=== PATIENT | male | born 1950 | race Caucasian/White ===

== ENCOUNTER 2020-03-06 07:29 | Inpatient (IN) | payer MEDICARE ==
[~2020-03-06] VITALS: Ht 182.8 cm; Wt 98.2 kg
[2020-03-06] MEDS ORDERED: NS IV 1000 ML 1,000 ML IV SCH (08:00)
--- NOTE | 2020-03-06 08:21 | ED Neurological Problem ---
General Chief Complaint: Neuro-Stroke Like Symptoms Stated Complaint: STROKE LIKE SYMPTOMS, VERTIGO Nursing Triage Note: TO ED PER EMS A TRANSFER FROM [facility] TO HAVE CT ANGIO OF HEAD AND NECK. PATIENT WOKE UP APX 4AM WITH C/O BEING DIZZY,NUMBNESS TO L SIDE OF FACE AND BLURRY VISION IN L EYE. LAST KNOW WELL TIME WAS 1030 -1100 PM LAST NIGHT. Nursing Sepsis Screen: No Definite Risk Source: patient, old records (From [facility]) Exam Limitations: no limitations History of Present Illness Date Seen by Provider: Mar 06, 2020 Time Seen by Provider: 07:33 Initial Comments This is 69-year-old gentleman presents to the emergency room with disequilibrium, diplopia, nausea and vomiting, and left facial numbness. His last known well time was approximately 22:30 when he went to bed. He woke with the symptoms at 04:00. He presented to [facility] via EMS. Initial work-up was relatively unremarkable. He was given Zofran, Compazine, IV fluids, meclizine, and Ativan with significant improvement in his symptoms. He did not qualify for thrombolytic therapy due to last known well time being 22:30. NIH stroke score at [facility] was 0. NIH stroke score for us is 1 due to discoordination of the left upper extremity. He either has a nystagmus or a left-sided deviation of the eyes which he is partially overcoming. As a result he is having diplopia and feels more comfortable shutting or covering 1 eye. He denies any visual field deficits. CT of the head without contrast at [facility] was negative. [facility] did not have the capability to perform CT angiogram and therefore requested the transfer. Patient has a pacemaker. He takes Cardizem and metoprolol but denies any history of atrial fibrillation. He does not take any anticoagulants. Allergies and Home Medications Allergies Coded Allergies: Penicillins (Verified Allergy, Unknown, 03/06/20) Patient Home Medication List Home Medication List Reviewed: Yes Review of Systems Review of Systems Constitutional: no symptoms reported Eyes: See HPI Ears, Nose, Mouth, Throat: no symptoms reported Respiratory: no symptoms reported Cardiovascular: other (Hypertension) Gastrointestinal: see HPI Genitourinary: no symptoms reported Musculoskeletal: no symptoms reported Skin: no symptoms reported Psychiatric/Neurological: See HPI Endocrine: No Symptoms Reported Hematologic/Lymphatic: No Symptoms Reported Past Dojvnqe-Cyvddc-Pihzci Hx Past Med/Social Hx: Reviewed Nursing Past Med/Soc Hx Patient Social History Recent Foreign Travel: No Contact w/Someone Who Travel: No Recent Infectious Disease Expo: No Past Medical History Surgeries: Yes Pacemaker Respiratory: No Cardiac: Yes (Pacemaker) Hypertension Neurological: No Genitourinary: No Gastrointestinal: No Musculoskeletal: No Endocrine: No HEENT: No Cancer: No Did You Recieve Any Treatments: No Psychosocial: No Integumentary: No Physical Exam Vital Signs Vital Signs - First Documented 03/06/20 07:29 Temp 35.6 Pulse 63 Resp 18 B/P (MAP) 188/90 (122) Pulse Ox 95 O2 Delivery Room Air Capillary Refill : Less Than 3 Seconds Height, Weight, BMI Height: '" Weight: lbs. oz. kg; 26.00 BMI Method: General Appearance: WD/WN, mild distress HEENT: normal ENT inspection, other (Dry mucous membranes) Neck: normal inspection Respiratory: lungs clear, normal breath sounds, no respiratory distress, no accessory muscle use Cardiovascular: regular rate, rhythm, no edema, no murmur Gastrointestinal: normal bowel sounds, non tender, soft Extremities: normal inspection, no pedal edema Neurologic/Psychiatric: alert, normal mood/affect, oriented x 3, other (Either a left sided gaze deviation which he is able to overcome with effort or nystagmus to the left. Movement is a slow beat to the left.) Crainal Nerves: normal hearing, normal speech, PERRL Coordination/Gait: ABN nose to finger (L) Skin: normal color, warm/dry Stroke NIH Stroke Scale Assessment Level of Consciousness: 0=Alert (0), Level of Consciousness-Questions: 0=Answers both month/age (0), LOC Commands: 0=Performs both tasks (0), Visual Boggs: 0=No visual loss (0), Facial Movement (Facial Paresis): 0=Normal symmetrical mnt (0), Motor Function-Arms Right: 0=No drift (0), Motor Function-Arms Left: 0=No drift (0), Motor Function-Legs Left: 0=No drift (0), Limb Ataxia: 1=Present in one limb (1), Best Language: 0=No aphasia (0), Dysarthria: 0=Normal (0), Total: 1 Progress/Results/Core Measures Results/Orders My Orders Orders - CLEVELAND ALY MD Ct Angio Head/Neck (03/06/20 07:52) Ns Iv 1000 Ml (Sodium Chloride 0.9%) (03/06/20 08:00) Ct Head Wo-R/O Stroke (03/06/20 08:21) Chest 1 View, Ap/Pa Only (03/06/20 09:17) Vital Signs Stroke Patient Q15M (03/06/20 09:17) Intake & Output 06,14,22 (03/06/20 09:17) Monitor-Rhythm Ecg Trace Only (03/06/20 09:17) Dysphagia Screening Tool (03/06/20 09:17) Aspirin Tablet (Aspirin Tablet) (03/06/20 11:00) Pt Evaluate/Treat Request (03/06/20 10:48) Vital Signs/I&O 03/06/20 03/06/20 07:29 09:28 Temp 35.6 Pulse 63 60 Resp 18 18 B/P (MAP) 188/90 (122) 198/95 (129) Pulse Ox 95 97 O2 Delivery Room Air Room Air Blood Pressure Mean: 122 Progress Progress Note #1: Time: 08:30 Progress Note Patient was taken back to CT. There is a density in the left parietal region. We will have this read to rule out hemorrhage before proceeding to the CT angiogram. Progress Note #2: Progress Note CT was unremarkable. CT angiogram was then obtained which was also unremarkable. Case was discussed with Dr. Lucio at 09:31. She agrees that the presentation was suspicious for acute stroke. She recommended admission to observe him and obtain 2D echocardiogram. MRI should be obtained in the near future as well. She recommended systolic blood pressure be allowed to remain high as long as it stays under 220 during the acute phase of stroke. Patient expressed a desire for transfer to [place] where his usual physicians are located. Unfortunately, [place] is on full admission diversion for transfers at this time. Patient received aspirin in the emergency room. I ordered a physical therapy consult and echocardiogram. Diagnostic Imaging Diagonstic Imaging: CT Plain Films/CT/US/NM/MRI: head Comments CT head viewed by me and report reviewed. See report below: NAME: ABRAHANIVONNE [facility] REC#: [id number] PT STATUS: REG ER : 1950 PHYSICIAN: CLEVELAND ALY MD ADMIT DATE: 03/06/20/ER Draft Date of Exam:03/06/20 CT HEAD WO-R/O STROKE PROCEDURE: CT head wo r/o stroke. TECHNIQUE: Multiple contiguous axial images were obtained through the brain without the use of intravenous contrast. Auto Exposure Controls were utilized during the CT exam to meet ALARA standards for radiation dose reduction. INDICATION: Neurological deficit, stroke like symptoms CORRELATION: None FINDINGS: There is no midline shift or mass effect. The ventricles and sulci are unremarkable. No evidence for acute intracranial hemorrhage, abnormal extra-axial fluid collections or cerebral edema is present. The basilar cisterns are unremarkable. The bony calvarium is intact. There is rather significant mucosal thickening and air-fluid levels throughout the paranasal sinuses. This includes the near complete opacification of the left frontal sinus and a large number of the ethmoid air cells. There is fluid in the sphenoid sinuses as well as moderate mucosal thickening of bilateral maxillary sinuses. IMPRESSION: Negative appearing noncontrast CT of the head. Extensive pansinusitis. Dictated on workstation # [id number] Dict: 03/06/2032 Trans: 03/06/20 0834 DO [id number] Interpreted by: YAZAN DALY DO Reviewed: Reviewed by Me Diagonstic Imaging: CT Plain Films/CT/US/NM/MRI: other Comments CT angiogram report reviewed. See report below: NAME: IVONNE GAUTHIER [facility] REC#: [id number] PT STATUS: REG ER : 1950 PHYSICIAN: CLEVELAND ALY MD ADMIT DATE: 03/06/20/ER Signed Date of Exam:03/06/20 CT ANGIO HEAD/NECK PROCEDURE: CT angiography of the head and CT angiography of the neck with and without contrast. TECHNIQUE: Contiguous noncontrast images were obtained from the skull base through the vertex. After intravenous contrast administration, helical CT angiography of the neck was performed. Source data was reformatted into 3D MIP projections. Delayed post contrast acquisition was also obtained. Auto Exposure Controls were utilized during the CT exam to meet ALARA standards for radiation dose reduction. INDICATION: Dizziness and facial numbness. Evaluate for stroke. Comparison made with CT of the head from earlier in the same day. FINDINGS: There is no significant stenosis at the origins of the great vessels arising from the aortic arch. The common carotid arteries demonstrate no significant stenosis. There is no stenosis at the carotid bifurcations by NASCET criteria. There is some plaquing within the proximal right internal carotid artery. There are no findings of an ICA dissection. The vertebral arteries within the neck demonstrate no significant stenosis or dissection. Intracranially, there is appropriate flow within the intracranial segments of both of the internal carotid arteries with only mild atherosclerotic disease within the carotid siphon. Carotid terminus is unremarkable bilaterally. There is flow within the M1 segment of both of the middle cerebral arteries with no findings of an M2 branch occlusion. The anterior cerebral arteries appear patent. Within the posterior circulation both of the vertebral arteries are patent. There are patent posterior inferior cerebellar arteries. The basilar demonstrates no significant stenosis. The superior cerebellar arteries appear patent. The posterior cerebral arteries appear patent. There are no findings of intracranial aneurysm formation or evidence of a vascular malformation. There is reidentification of paranasal sinus disease as described on CT of the head. The soft tissues of the neck demonstrate no acute process. The lung apices appear clear. There are degenerative features within the cervical spine without acute or suspicious osseous abnormality. IMPRESSION: 1. No CT angiographic evidence of intracranial large vessel occlusion. 2. No findings of intracranial aneurysm formation. 3. The dural venous sinuses appear patent. 4. No pathologic intracranial enhancement. 5. No significant stenosis or dissection within the neck. 6. Paranasal sinus disease. 7. Cervical degenerative disc disease and facet arthropathy. Postcontrast imaging demonstrate no pathologic intracranial enhancement. The dural venous sinuses appear patent. Dictated by: Dictated on workstation # [id number] Dict: 03/06/20905 Trans: 03/06/201005 [id number] Interpreted by: CHITRA PEREZ MD Electronically signed by: CHITRA PEREZ MD 03/06/201005 Reviewed: Reviewed by Me Diagonstic Imaging: Xray Plain Films/CT/US/NM/MRI: chest Comments NAME: IVONNE GAUTHIER [facility] REC#: [id number] PT STATUS: REG ER : 1950 PHYSICIAN: CLEVELAND ALY MD ADMIT DATE: 03/06/20/ER Signed Date of Exam:03/06/20 CHEST 1 VIEW, AP/PA ONLY INDICATION: Stroke. FINDINGS: A pacemaker device is present. Heart size appropriate without evidence of current edema or failure. There is no focal infiltrate or consolidation. There is no effusion. There is no pneumothorax. The diaphragms do appear to be flattened suggesting a component of air trapping. IMPRESSION: Likely air trapping with flattening of the diaphragms. The lungs appear clear. Pulmonary vascularity appears appropriate. Dictated by: Dictated on workstation # [id number] Dict: 03/06/20 0951 Trans: 03/06/20 1006 [facility] [id number] Interpreted by: CHITRA PEREZ MD Electronically signed by: CHITRA PEREZ MD 03/06/20 1006 Reviewed: Reviewed by Me Departure Communication (Admissions) Time/Spoke to Admitting Phy: 10:40 Dr. Nunez Impression Primary Impression: Diplopia Additional Impressions: Left facial numbness Nausea and vomiting Qualified Codes: R11.2 - Nausea with vomiting, unspecified Hypertension Qualified Codes: I10 - Essential (primary) hypertension Disposition: ADMITTED INPATIENT Condition: Improved Admissions Decision to Admit Reason: Admit from ER (General) Decision to Admit/Date: Mar 06, 2020 Time/Decision to Admit Time: 09:35 CLEVELAND ALY MD Mar 06, 2020 08:21
--- NOTE | 2020-03-06 08:34 | Diagnostic Imaging Report ---
PROCEDURE: CT head wo r/o stroke. TECHNIQUE: Multiple contiguous axial images were obtained through the brain without the use of intravenous contrast. Auto Exposure Controls were utilized during the CT exam to meet ALARA standards for radiation dose reduction. INDICATION: Neurological deficit, stroke like symptoms CORRELATION: None FINDINGS: There is no midline shift or mass effect. The ventricles and sulci are unremarkable. No evidence for acute intracranial hemorrhage, abnormal extra-axial fluid collections or cerebral edema is present. The basilar cisterns are unremarkable. The bony calvarium is intact. There is rather significant mucosal thickening and air-fluid levels throughout the paranasal sinuses. This includes the near complete opacification of the left frontal sinus and a large number of the ethmoid air cells. There is fluid in the sphenoid sinuses as well as moderate mucosal thickening of bilateral maxillary sinuses. IMPRESSION: Negative appearing noncontrast CT of the head. Extensive pansinusitis. Dictated by: Dictated on workstation # [id number]
--- NOTE | 2020-03-06 09:13 | NUR ---
PATIENT PULLED IV OUT IN R HAND FLUIDS RESTARTED ON R AC.
--- NOTE | 2020-03-06 09:16 | Diagnostic Imaging Report ---
PROCEDURE: CT angiography of the head and CT angiography of the neck with and without contrast. TECHNIQUE: Contiguous noncontrast images were obtained from the skull base through the vertex. After intravenous contrast administration, helical CT angiography of the neck was performed. Source data was reformatted into 3D MIP projections. Delayed post contrast acquisition was also obtained. Auto Exposure Controls were utilized during the CT exam to meet ALARA standards for radiation dose reduction. INDICATION: Dizziness and facial numbness. Evaluate for stroke. Comparison made with CT of the head from earlier in the same day. FINDINGS: There is no significant stenosis at the origins of the great vessels arising from the aortic arch. The common carotid arteries demonstrate no significant stenosis. There is no stenosis at the carotid bifurcations by NASCET criteria. There is some plaquing within the proximal right internal carotid artery. There are no findings of an ICA dissection. The vertebral arteries within the neck demonstrate no significant stenosis or dissection. Intracranially, there is appropriate flow within the intracranial segments of both of the internal carotid arteries with only mild atherosclerotic disease within the carotid siphon. Carotid terminus is unremarkable bilaterally. There is flow within the M1 segment of both of the middle cerebral arteries with no findings of an M2 branch occlusion. The anterior cerebral arteries appear patent. Within the posterior circulation both of the vertebral arteries are patent. There are patent posterior inferior cerebellar arteries. The basilar demonstrates no significant stenosis. The superior cerebellar arteries appear patent. The posterior cerebral arteries appear patent. There are no findings of intracranial aneurysm formation or evidence of a vascular malformation. There is reidentification of paranasal sinus disease as described on CT of the head. The soft tissues of the neck demonstrate no acute process. The lung apices appear clear. There are degenerative features within the cervical spine without acute or suspicious osseous abnormality. IMPRESSION: 1. No CT angiographic evidence of intracranial large vessel occlusion. 2. No findings of intracranial aneurysm formation. 3. The dural venous sinuses appear patent. 4. No pathologic intracranial enhancement. 5. No significant stenosis or dissection within the neck. 6. Paranasal sinus disease. 7. Cervical degenerative disc disease and facet arthropathy. Postcontrast imaging demonstrate no pathologic intracranial enhancement. The dural venous sinuses appear patent. Dictated by: Dictated on workstation # [id number]
--- NOTE | 2020-03-06 09:35 | NUR ---
CALLED UPDATE GIVEN SHE REQUEST HE BE TRANSFERED TO [facility]
--- NOTE | 2020-03-06 09:54 | Diagnostic Imaging Report ---
INDICATION: Stroke. FINDINGS: A pacemaker device is present. Heart size appropriate without evidence of current edema or failure. There is no focal infiltrate or consolidation. There is no effusion. There is no pneumothorax. The diaphragms do appear to be flattened suggesting a component of air trapping. IMPRESSION: Likely air trapping with flattening of the diaphragms. The lungs appear clear. Pulmonary vascularity appears appropriate. Dictated by: Dictated on workstation # [id number]
--- NOTE | 2020-03-06 10:59 | NUR ---
AWARE OF ADMIT WAS GOING HOME.
[2020-03-06] MEDS ORDERED: ASPIRIN 325 MG (5 GR) TABLET PO ONE (11:00)
--- NOTE | 2020-03-06 11:17 | NUR ---
Shannen nuñezneymar in [facility] - 03/06/20 at 1118 by PMCCLURE CHART FROM [facility] SENT TO STEP DOWN WITH PATIENT ADMIT CHR
[2020-03-06] MEDS ORDERED: ONDANSETRON 4 MG/2 ML (SDV) Z0FRAN IV PRN (11:45)
[2020-03-06] MEDS ORDERED: CATHETER FLUSH 10 ML SYR IV PRN (11:45)
[2020-03-06] MEDS ORDERED: MILK OF MAGNESIA 400 MG/5 ML 30 ML UDC PO PRN (11:45)
[2020-03-06] MEDS ORDERED: PROMETHAZINE INJ 25 MG/ML (PHENERGAN) AMP IV PRN (11:45)
--- NOTE | 2020-03-06 12:02 | Physical Therapy Evaluation ---
PT Evaluation-General Medical Diagnosis Admission Date Mar 06, 2020 at 10:57 Medical Diagnosis: CVA Onset Date: Mar 06, 2020 Therapy Diagnosis Therapy Diagnosis: decreased mobility, gait unsteadiness Weight Bear Status Right Lower Extremity: Right Full Weight Bearing Left Lower Extremity: Left Full Weight Bearing Referral Physician: Dr. White Reason for Referral: Evaluation/Treatment Medical History Pertinent Medical History: HTN Additional Medical History pacemaker Current History Presented to ER with disequilibrium, n/v, L facial numbness, diplopia. Reviewed History: Yes Social History Home: Single Level Current Living Status: Spouse Prior Prior Level of Function SCALE: Activities may be completed with or without assistive devices. 3-Yvqszojoij-iehkdig completes the activity by him/herself with no assistance from a helper. 5-Set-up or Clean-up Assistance-helper sets up or cleans up; patient completes activity. [place] assists only prior to or following the activity. 4-Supervision or Touching Assistance-helper provides verbal cues and/or touching/steadying and/or contact guard assistance as patient completes activity. Assistance may be provided throughout the activity or intermittently. 3-Partial/Moderate Assistance-helper does LESS THAN HALF the effort. [place] lifts, holds or supports trunk or limbs, but provides less than half the effort. 2-Substantial/Maximal Assistance-helper does MORE THAN HALF the effort. [place] lifts or holds trunk or limbs and provides more than half the effort. 0-Tsmjqrbgk-upgnls does ALL the effort. Patient does none of the effort to complete the activity. Or, the assistance of 2 or more helpers is required for the patient to complete the activity. If activity was not attempted, code reason: 7-Patient Refused. 9-Not Applicable-not attempted and the patient did not perform the activity befo re the current illness, exacerbation or injury. 10-Not Attempted due to Environmental Limitations-(lack of equipment, weather re straints, etc.). 88-Not Attempted due to Medical Conditions or Safety Concerns. Bed Mobility: 6 Transfers (B,C,W/C): 6 Gait: 6 Stairs: 6 PT Evaluation-Current Subjective Pt. states he started having issues early this morning, "they think I might of had a stroke." Pt. agrees to PT but says he can't see well, "it's better if I cover 1 eye." Pt/Family Goals home with spouse Objective Patient Orientation: Person, Place, Time, Situation ROM/Strength ROM Upper Extremities WFL (B) ROM Lower Extremities WNL (B) Strength Upper Extremities WNL Strength Lower Extremities Grossly 5/5 (B) Integumentary/Posture Integumentary intact Bowel Incontinence: No Bladder Incontinence: No Posture leaning to left Neuromuscular (Tone, Coordination, Reflexes) decreased Sensory Vision: Hearing: Functional Sensation Right Upper Extremit: Intact Sensation Left Upper Extremity: Intact Sensation Right Lower Extremit: Intact Sensation Left Lower Extremity: Intact Transfers Sit to Lying (QC): 6 Lying to Sitting/Side of Bed(Q: 4 Sit to Stand (QC): 3 Gait Does the Patient Walk?: No and Walking Goal IS indicated Anticipated Mode of Locomotion: Walk Balance Sitting Static: Fair Sitting Dynamic: Poor Standing Static: Poor Standing Dynamic: Poor Assessment/Needs Pt. is a 69 y.o. male with recent onset of stroke-like symptoms affecting L side. Pt. has significant lean to the L while sitting and standing, attempted marching in place at walker but patient max A to maintain standing balance. Pt. unsafe to ambulate at this time due to poor gait balance. He would benefit from skilled PT to restore safe mobility to return home with spouse. 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 PT Detention Goals Time Frame: Mar 13, 2020 Roll Left & Right (QC): 6 Sit to Lying (QC): 6 Lying-Sitting on Side/Bed(QC): 6 Sit to Stand (QC): 6 Chair/Cih-cc-Yqimf Xfer(QC): 6 Does the Patient Walk: Yes Walk 10 feet (QC): 4 Walk 50ft with 2 Turns (QC): 4 Walk 150 ft (QC): 4 PT Plan Problem List Problem List: Activity Tolerance, Functional Strength, Safety, Balance, Gait, Transfer, Bed Mobility, ROM Treatment/Plan Treatment Plan: Continue Plan of Care Treatment Plan: Bed Mobility, Education, Functional Activity Patria, Functional Strength, Gait, Safety, Therapeutic Exercise, Transfers Treatment Duration: Mar 13, 2020 Frequency: 6 times per week Estimated Hrs Per Day: .25 hour per day Patient and/or Family Agrees t: Yes Time/GCodes Time In: 1135 Time Out: 1150 Total Billed Treatment Time: 15 Total Billed Treatment 1, FLACO 15' HERMINIA GOMEZ PT Mar 06, 2020 12:02
[2020-03-06 12:10] LABS: TRIGLYCERIDES 72 MG/DL (<150); VLDL CHOLESTEROL 14 MG/DL (5-40)
[2020-03-06 12:15] LABS: CHOLESTEROL 202 MG/DL (< 200)
[2020-03-06 12:16] LABS: HDL CHOLESTEROL 67 MG/DL (40-60)
[2020-03-06] MEDS ORDERED: hydrALAZINE (APESOLINE) 20 MG/ML VIAL IV PRN (14:15)
[2020-03-06 16:42] VITALS: BP 198/98
[2020-03-06] MEDS: MECLIZINE 25 MG (ANTIVERT) TAB PO PRN (16:49)
[2020-03-06] MEDS: CATHETER FLUSH 10 ML SYR IV SCH ×2 (16:50→22:31)
[2020-03-06 19:10] VITALS: BP 153/77
[2020-03-06] MEDS: ENOXAPARIN 40 MG/0.4 ML (LOVENOX) SYR SC SCH (20:15)
[2020-03-06] MEDS ORDERED: ZOLPIDEM 5 MG (AMBIEN) TAB PO PRN (20:45)
--- NOTE | 2020-03-06 20:48 | History & Physical-Hospitalist ---
History of Present Illness HPI/Chief Complaint Joradn Garland is a 69 year old male with PMH HTN, pacemaker, who presented with vertigo. He reports that he felt well when he went to bed last night. When he woke up this morning he kept turning to the left. He was unable to keep his balance. He reports double vision. He reports left sided facial numbness. He denies weakness. He denies speech difficulty. He denies chest pain and palpitations. He denies shortness of breath. He does not smoke cigarettes. He does not drink alcohol. He reports that he smokes marijuana daily and has a medical marijuana card for chronic back pain. Source: patient Exam Limitations: no limitations Date Seen 03/06/20 Time Seen by a Provider: 13:55 Attending Physician Marcia Armando MD PCP No,Local Physician Referring Physician Date of Admission Mar 06, 2020 at 10:57 Home Medications & Allergies Home Medications Reviewed patient Home Medication Reconciliation performed by pharmacy medication reconciliations chemical lab technician and/or nursing. Patients Allergies have been reviewed. Allergies Allergies Coded Allergies Penicillins (Verified Allergy, Unknown, 03/06/20) Past Xyirpqf-Ssyjsx-Eiosyf Hx Past Med/Social Hx: Reviewed and Corrections made Patient Social History Alcohol Use: Denies Use Recreational Drug Use: Yes Drug of Choice: marijuana use daily Smoking Status: Never a Smoker Recent Foreign Travel: No Contact w/other who traveled: No Recent Infectious Disease Expo: No Immunizations Up To Date Date of Influenza Vaccine: Nov 27, 2019 Past Medical History Surgeries: Pacemaker Cardiac: Hypertension Did You Recieve Any Treatments: No Review of Systems Constitutional: dizziness EENTM: double vision Respiratory: no symptoms reported Cardiovascular: no symptoms reported Gastrointestinal: no symptoms reported Genitourinary: no symptoms reported Musculoskeletal: no symptoms reported Skin: no symptoms reported Psychiatric/Neurological: Numbness Physical Exam Physical Exam Vital Signs Vital Signs - First Documented 03/06/20 07:29 Temp 35.6 Pulse 63 Resp 18 B/P (MAP) 188/90 (122) Pulse Ox 95 O2 Delivery Room Air Capillary Refill : Less Than 3 Seconds Height, Weight, BMI Height: '" Weight: lbs. oz. kg; 26.51 BMI Method: General Appearance: No Apparent Distress, WD/WN HEENT: Other (PERRL, left nystagmus) Neck: Normal Inspection, Supple Respiratory: Lungs Clear, Normal Breath Sounds, No Respiratory Distress Cardiovascular: No Edema, No Murmur, Irregularly Irregular Gastrointestinal: Normal Bowel Sounds, Non Tender, Soft Extremity: Normal Inspection, Non Tender, No Pedal Edema Neurologic/Psychiatric: Alert, Oriented x3, Normal Mood/Affect, Facial Droop (left), Sensory Deficit (left facial numbness), Other (no motor weakness) Skin: Normal Color, Warm/Dry Lymphatic: No Adenopathy Results Results/Procedures Labs Patient resulted labs reviewed. Imaging: Reviewed Imaging Report Assessment/Plan Admission Diagnosis Acute ishcemic stroke Admission Status: Inpatient Order (span 2 midnights) Reason for Inpatient Admission: Stroke requiring further evaluation and treatment Assessment and Plan Acute ischemic stroke Dyslipidemia Pacemaker HTN CT negatvie CTA negative Symptoms consistent with cerebellar stroke Obtain MRI Sunday Started on ASA Lipid panel showed dyslipidemia Begin Lipitor Continue diltiazem Hydralazine as needed Echo ordered Monitor on telemetry Consult cardiology, appreciate assistance PT/OT consulted IRF evaluation DVT prophylaxis: Lovenox Diagnosis/Problems Diagnosis/Problems (1) Stroke Status: Acute (2) Pacemaker Status: Chronic (3) Dyslipidemia Status: Acute (4) HTN (hypertension) Status: Acute Qualifiers: Hypertension type: essential hypertension Qualified Codes: I10 - Essential (primary) hypertension Clinical Quality Measures DVT/VTE Risk/Contraindication: Risk Factor Score Per Nursin RFS Level Per Nursing on Admit: 4+=Very High MARCIA ARMANDO MD Mar 06, 2020 20:48
[2020-03-07] VITALS (7 sets, daily range): BP systolic 122–167; BP diastolic 74–99
[2020-03-07 03:14] LABS: BASOPHILS % (AUTO) 0 % (0-10); EOSINOPHILS % (AUTO) 0 % (0-10); HEMATOCRIT 40 % (40-54); HEMOGLOBIN 13.4 g/dL (13.3-17.7); LYMPHOCYTES # (AUTO) 1.5 10^3/uL (1.0-4.0); LYMPHOCYTES % (AUTO) 9 % (12-44); MEAN CORPUSCULAR HEMOGLOBIN 30 pg (25-34); MEAN CORPUSCULAR HGB CONC 34 g/dL (32-36); MEAN CORPUSCULAR VOLUME 89 fL (80-99); MEAN PLATELET VOLUME 9.1 fL (9.0-12.2); MONOCYTES # (AUTO) 1.2 10^3/uL (0.0-1.0); MONOCYTES % (AUTO) 7 % (0-12); NEUTROPHILS # (AUTO) 13.6 10^3/uL (1.8-7.8); NEUTROPHILS % (AUTO) 83 % (42-75); PLATELET COUNT 229 10^3/uL (130-400); WHITE BLOOD COUNT 16.3 10^3/uL (4.3-11.0)
[2020-03-07 03:29] LABS: POTASSIUM 4.1 MMOL/L (3.6-5.0)
[2020-03-07 03:30] LABS: CALCIUM 9.2 MG/DL (8.5-10.1)
[2020-03-07 03:34] LABS: CREATININE SERUM 1.69 MG/DL (0.60-1.30)
[2020-03-07 03:57] LABS: BAND NEUTROPHILS 12 %; LYMPHOCYTES % (MANUAL) 5 %; MONOCYTES % (MANUAL) 2 %; NEUTROPHILS % (MANUAL) 81 %; RBC MORPH NORMAL
[2020-03-07] MEDS: MECLIZINE 25 MG (ANTIVERT) TAB PO PRN (05:04)
[2020-03-07] MEDS: CATHETER FLUSH 10 ML SYR IV SCH ×3 (06:24→20:11)
[2020-03-07] MEDS: DOCUSATE SODIUM 100 MG (COLACE) CAP PO SCH (08:21)
[2020-03-07] MEDS: ASPIRIN E.C. 325 MG (ECOTRIN) TABLET PO SCH (08:22)
[2020-03-07] MEDS: lisINopril 20 MG (PRINIVIL) TABLET PO SCH (08:25)
[2020-03-07] MEDS: CARVEDILOL 6.25 MG (COREG) TAB PO SCH ×2 (08:25→20:08)
[2020-03-07] MEDS ORDERED: lisINopril 40 MG (PRINIVIL) TABLET PO SCH (09:00)
--- NOTE | 2020-03-07 11:08 | NUR ---
RECEIVED PHONE CALL FROM PTS , PASSWORD OBTAINED. UPDATE GIVEN. PTS DAUGHTER WORKS AT [facility] WHERE THEY HAVE A SWINGBED PROGRAM. INFORMED THAT PLAN FOR PATIENT IS TO GO TO REHAB ON SUNDAY AFTER MRI. AND DAUGHTER WOULD LIKE PATIENT TO COME TO [place] IF POSSIBLE. IS GOING TO CHECK WITH FACILITY TO SEE IF THEY CAN DO AN MRI OR HAVE INTENSE THERAPY REGIMEN FOR PATIENT. STATES SHE HAS NO FURTHER QUESTIONS OR CONCERNS AND WILL CALL [facility] WITH HER QUESTIONS AND LET ME KNOW WHAT THE FAMILY DECIDES IS BEST PLAN OF CARE FOR PATIENT.
--- NOTE | 2020-03-07 12:59 | Progress Note - Hospitalist ---
Subjective HPI/CC On Admission Date Seen by Provider: Mar 07, 2020 Time Seen by Provider: 10:00 Jordan Garland is a 69 year old male with PMH HTN, pacemaker, who presented with vertigo. He reports that he felt well when he went to bed last night. When he woke up this morning he kept turning to the left. He was unable to keep his bal ance. He reports double vision. He reports left sided facial numbness. He denies weakness. He denies speech difficulty. He denies chest pain and palpitations. He denies shortness of breath. He does not smoke cigarettes. He does not drink alcohol. He reports that he smokes marijuana daily and has a medical marijuana card for chronic back pain. Subjective/Events-last exam He says his facial numbness is improving. He is still having a bit of clumsiness of his left hand. He was still leaning to his left whenever he tried to stand up. He was requiring some assistance with getting around. He denies any weakness or speech difficulties. Objective Exam Vital Signs Vital Signs Date Time Temp Pulse Resp B/P (MAP) Pulse Ox O2 Delivery O2 Flow Rate FiO2 03/07/20 09:00 97 Room Air 03/07/20 08:00 36.2 67 18 165/95 (118) Capillary Refill : Less Than 3 Seconds General Appearance: No Apparent Distress, WD/WN HEENT: PERRL/EOMI, Pharynx Normal Neck: Normal Inspection, Supple Respiratory: Lungs Clear, Normal Breath Sounds, No Respiratory Distress Cardiovascular: No Murmur, Irregularly Irregular Gastrointestinal: Normal Bowel Sounds, Non Tender, Soft Extremity: Normal Inspection, Non Tender, No Pedal Edema Neurologic/Psychiatric: Alert, Oriented x3, Facial Droop, Other (left dysmetria, ataxia) Skin: Normal Color, Warm/Dry Results/Procedures Lab Laboratory Tests 03/07/20 02:35 Patient resulted labs reviewed. Imaging: Reviewed Imaging Report Assessment/Plan Assessment and Plan Assess & Plan/Chief Complaint Acute ischemic stroke Dyslipidemia Continue ASA Continue Lipitor Obtain MRI tomorrow PT/OT consulted IRF evaluation, prefers to go to [place] or [place] Pacemaker HTN Continue diltiazem Begin Coreg and Lisinopril Hydralazine as needed Echo ordered Monitor on telemetry Consult cardiology, appreciate assistance Leukocytosis Likely reactive, monitor, no evidence of infection DVT prophylaxis: Lovenox Diagnosis/Problems Diagnosis/Problems (1) Stroke Status: Acute (2) Pacemaker Status: Chronic (3) Dyslipidemia Status: Acute (4) HTN (hypertension) Status: Acute Qualifiers: Hypertension type: essential hypertension Qualified Codes: I10 - Essential (primary) hypertension (5) Leukocytosis Status: Acute Clinical Quality Measures DVT/VTE Risk/Contraindication: Risk Factor Score Per Nursin RFS Level Per Nursing on Admit: 4+=Very High BALTA ARMANDO MD Mar 07, 2020 12:58
--- NOTE | 2020-03-07 15:01 | Consultation-Cardiology ---
HPI-Cardiology Cardiology Consultation: Date of Consultation 03/07/20 Date of Admission Attending Physician Marcia Nunez MD Admitting Physician No,Local Physician Consulting Physician Jenifer NUNEZ MD HPI: Time Seen by a Provider: 13:45 Chief Complaint: stroke 69-year-old gentleman with history of hypertension and previous permanent pacemaker implantation. He presents with symptoms of stroke. He denies active smoking. He denies diabetes. Gradual improvement in his stroke symptoms. Cardiology consultation is requested for ruling out cardiac etiology of acute stroke Review of Systems-Cardiology Review of Systems Constitutional: As described under HPI; No As described under HPI, No no symptoms reported, No chills, No fever, No lightheadedness Eyes: No As described under HPI, No no symptoms reported, No blindness, No blurred vision, No contact lenses, No drainage, No decreased acuity, No foreign body sensation, No pain, No vision change Ears/Nose/Throat: No As described under HPI, No no symptoms reported, No chronic hearing loss, No ear discharge, No ear pain, No nasal drainage, No ulcerations Respiratory: No no symptoms reported; As described under HPI; No As described under HPI, No cough, No orthopnea, No shortness of breath, No SOB with excertion Cardiovascular: No no symptoms reported; As described under HPI; No As descri bed under HPI, No chest pain, No edema, No irregular heart rate, No lightheadedness, No palpitations Gastrointestinal: No no symptoms reported, No As described under HPI, No abdomen distended, No abdominal pain, No blood streaked bowels, No constipation, No diarrhea, No nausea, No vomiting, No stool coloration changes Genitourinary: No As described under HPI, No burning, No dysuria, No discharge, No frequency, No flank pain, No hematuria, No urgency Skin: No rash, No skin related problems, No ulcerations Psychiatric/Neurological: As described under HPI, numbness, focal weakness; No anxiety, No depression, No seizure, No syncope Hematologic: No bleeding abnormalities LJQ-Ynhowi-Xlhfqq Hx Patient Social History Alcohol Use: Denies Use Recreational Drug Use: Yes Drug of Choice: marijuana use daily Smoking Status: Never a Smoker Recent Foreign Travel: No Recent Infectious Disease Expo: No Hospitalization with Isolation: Denies Immunizations Up To Date Date of Influenza Vaccine: Nov 27, 2019 Past Medical History PMH As described under Assessment. Allergies and Home Medications Allergies Coded Allergies: Penicillins (Verified Allergy, Unknown, 03/06/20) Patient Home Medication List Home Medication List Reviewed: Yes Physical Exam-Cardiology Physical Exam Vital Signs/I&O 03/07/20 03/07/20 03/07/20 03/07/20 12:00 12:00 13:00 15:50 Temp 35.3 37.1 Pulse 65 62 71 Resp 18 12 B/P (MAP) 161/94 (116) 145/82 (103) Pulse Ox 96 96 96 O2 Delivery Room Air Room Air Room Air 03/07/20 03/07/20 03/07/20 03/07/20 16:00 19:00 19:07 20:15 Temp 37.0 Pulse 66 64 Resp 14 B/P (MAP) 165/79 (107) Pulse Ox 96 95 O2 Delivery Room Air Room Air Room Air 03/07/20 03/07/20 03/07/20 20:15 23:18 23:43 Temp 36.4 Pulse 62 Resp 13 B/P (MAP) 122/74 (90) Pulse Ox 94 O2 Delivery Room Air Room Air Room Air 03/07/20 00:00 Intake Total 925 ml Output Total 850 ml Balance 75 ml Capillary Refill : Less Than 3 Seconds Constitutional: appears stated age, AAO x 3; No apparent distress; well- developed, well-nourished HEENT: PERRL; No discharge; hearing is well preserved, oral hygience is good; No ulceration, No xanthelasmas are seen Neck: No carotid bruit; carotid pulses are 2 + bilaterally Respiratory: chest is bilaterally symmetric, lungs clear to auscultation Cardiovascular: regular rate-rhythm, S1 and S2 Gastrointestinal: soft, audible bowel sounds; No spleenomegaly Rectal: deferred Extremities: No clubbing, No cyanosis; no lower extremity edema bilateral; No significant edema Neurologic/Psychiatric: alert, normal mood/affect, oriented x 3, motor weakness, sensory deficit Skin: normal color; No rash, No ulcerations Data Review Labs Laboratory Tests 03/07/20 02:35: White Blood Count 16.3H, Red Blood Count 4.48, Hemoglobin 13.4, Hematocrit 40, Mean Corpuscular Volume 89, Mean Corpuscular Hemoglobin 30, Mean Corpuscular Hemoglobin Concent 34, Red Cell Distribution Width 13.5, Platelet Count 229, Mean Platelet Volume 9.1, Immature Granulocyte % (Auto) 1, Neutrophils (%) (Auto) 83H, Lymphocytes (%) (Auto) 9L, Monocytes (%) (Auto) 7, Eosinophils (%) (Auto) 0, Basophils (%) (Auto) 0, Neutrophils # (Auto) 13.6H, Lymphocytes # (Auto) 1.5, Monocytes # (Auto) 1.2H, Eosinophils # (Auto) 0.0, Basophils # (Auto) 0.0, Immature Granulocyte # (Auto) 0.1, Neutrophils % (Manual) 81, Lymphocytes % (Manual) 5, Monocytes % (Manual) 2, Band Neutrophils 12, Blood Morphology Comment NORMAL, Sodium Level 135, Potassium Level 4.1, Chloride Level 102, Carbon Dioxide Level 20L, Anion Gap 13, Blood Urea Nitrogen 31H, Creatinine 1.69H, Estimat Glomerular Filtration Rate 40, BUN/Creatinine Ratio 18, Glucose Level 139H, Calcium Level 9.2 ECG Impression ECG Initial ECG Rhythm: Normal Sinus, PAC A/P-Cardiology Assessment/Admission Diagnosis acute stroke, dual chamber permanent pacemaker, HTN Plan acute stroke with normal carotids. dual chamber PPM interogation shows no AF episodes. Echocardiogram reveals normal LVEF. bubble study tomorrow. Continue antiplatelet therapy. Hyperlipidemia- start lipitor. BP management. Low chance of cardiac etiology of stroke. Dr Pagan to take over cardiac care tomorrow. Patient's primary chute greaser is Dr Chacon in [place] Thank you for your consultation. Please call me if you have any questions. Ellis Nunez MD, FACP, FACC, FSCAI, FHRS, CCDS Interventional Cardiology Cardiac Electrophysiology Vascular Medicine and Endovascular Interventions Clinical Quality Measures DVT/VTE Risk/Contraindication: Risk Factor Score Per Nursin RFS Level Per Nursing on Admit: 4+=Very High Jenifer NUNEZ MD Mar 07, 2020 15:01
[2020-03-07] MEDS: ENOXAPARIN 40 MG/0.4 ML (LOVENOX) SYR SC SCH (20:10)
[2020-03-08 03:39] VITALS: BP 147/80
[2020-03-08 03:47] LABS: BASOPHILS # (AUTO) 0.1 10^3/uL (0.0-0.1); BASOPHILS % (AUTO) 0 % (0-10); EOSINOPHILS # (AUTO) 0.1 10^3/uL (0.0-0.3); EOSINOPHILS % (AUTO) 1 % (0-10); HEMATOCRIT 38 % (40-54); HEMOGLOBIN 12.6 g/dL (13.3-17.7); LYMPHOCYTES # (AUTO) 2.3 10^3/uL (1.0-4.0); LYMPHOCYTES % (AUTO) 15 % (12-44); MEAN CORPUSCULAR HEMOGLOBIN 30 pg (25-34); MEAN CORPUSCULAR HGB CONC 33 g/dL (32-36); MEAN CORPUSCULAR VOLUME 91 fL (80-99); MONOCYTES # (AUTO) 1.6 10^3/uL (0.0-1.0); MONOCYTES % (AUTO) 10 % (0-12); NEUTROPHILS # (AUTO) 11.4 10^3/uL (1.8-7.8); NEUTROPHILS % (AUTO) 74 % (42-75); PLATELET COUNT 235 10^3/uL (130-400); WHITE BLOOD COUNT 15.5 10^3/uL (4.3-11.0)
[2020-03-08 04:04] LABS: CALCIUM 8.8 MG/DL (8.5-10.1)
[2020-03-08 04:09] LABS: CREATININE SERUM 1.74 MG/DL (0.60-1.30)
[2020-03-08] MEDS: CATHETER FLUSH 10 ML SYR IV SCH ×3 (06:52→21:43)
[2020-03-08 07:05] VITALS: BP 125/86
[2020-03-08] MEDS: DOCUSATE SODIUM 100 MG (COLACE) CAP PO SCH (07:48)
[2020-03-08] MEDS: CARVEDILOL 6.25 MG (COREG) TAB PO SCH ×2 (07:48→20:27)
[2020-03-08] MEDS: lisINopril 20 MG (PRINIVIL) TABLET PO SCH (07:48)
[2020-03-08] MEDS: ASPIRIN E.C. 325 MG (ECOTRIN) TABLET PO SCH (07:48)
--- NOTE | 2020-03-08 08:49 | Physical Therapy Daily Note ---
PT Daily Note-Current Subjective Patient in bed pre tx, agrees to PT, has no complaints of pain. Appearance Patient in bed post tx with nurse call, phone, tray, all needs met. Mental Status Patient Orientation: Person, Place, Situation Transfers SCALE: Activities may be completed with or without assistive devices. 8-Ghomhhizjk-cwruadc completes the activity by him/herself with no assistance from a helper. 5-Set-up or Clean-up Assistance-helper sets up or cleans up; patient completes activity. [place] assists only prior to or following the activity. 4-Supervision or Touching Assistance-helper provides verbal cues and/or touching/steadying and/or contact guard assistance as patient completes activity. Assistance may be provided throughout the activity or intermittently. 3-Partial/Moderate Assistance-helper does LESS THAN HALF the effort. [place] lifts, holds or supports trunk or limbs, but provides less than half the effort. 2-Substantial/Maximal Assistance-helper does MORE THAN HALF the effort. [place] lifts or holds trunk or limbs and provides more than half the effort. 2-Yxwuiekba-kqsdid does ALL the effort. Patient does none of the effort to complete the activity. Or, the assistance of 2 or more helpers is required for the patient to complete the activity. If activity was not attempted, code reason: 7-Patient Refused. 9-Not Applicable-not attempted and the patient did not perform the activity before the current illness, exacerbation or injury. 10-Not Attempted due to Environmental Limitations-(lack of equipment, weather restraints, etc.). 88-Not Attempted due to Medical Conditions or Safety Concerns. Roll Left & Right (QC): 6 Sit to Lying (QC): 6 Lying to Sitting/Side of Bed(Q: 6 Sit to Stand (QC): 3 Toilet Transfer (QC): 3 Patient stood x2 at bedside with min assist, poor standing balance, ataxic, stood for about 2 minutes each time then he says he needs to use the commode, stand pivot transfer to commode with min assist, he is able to wipe himself, stand pivot back to bed with min assist. Patient states he is dizzy and needs to lay down, O2 stays in the mid 90's during tx. Weight Bearing Right Lower Extremity: Right Full Weight Bearing Left Lower Extremity: Left Full Weight Bearing Treatments standing, toileting Assessment Current Status: Fair Progress improved standing balance, unsteady/ataxic with movement PT Group Home Goals Window Sash Installer Goals PT Window Sash Installer Goals Time Frame: Mar 13, 2020 Roll Left & Right (QC): 6 Sit to Lying (QC): 6 Lying-Sitting on Side/Bed(QC): 6 Sit to Stand (QC): 6 Chair/Ogw-tg-Khemb Xfer(QC): 6 Does the Patient Walk: Yes Walk 10 feet (QC): 4 Walk 50ft with 2 Turns (QC): 4 Walk 150 ft (QC): 4 PT Plan Problem List Problem List: Activity Tolerance, Functional Strength, Safety, Balance, Gait, Transfer, Bed Mobility Treatment/Plan Treatment Plan: Continue Plan of Care Treatment Plan: Bed Mobility, Education, Functional Activity Patria, Functional Strength, Gait, Safety, Therapeutic Exercise, Transfers Treatment Duration: Mar 13, 2020 Frequency: 6 times per week Estimated Hrs Per Day: .25 hour per day Patient and/or Family Agrees t: Yes Safety Risks/Education Patient Education: Gait Training, Transfer Techniques, Correct Positioning, Safety Issues Teaching Recipient: Patient Teaching Methods: Demonstration, Discussion Response to Teaching: Reinforcement Needed Time/GCodes Time In: 827 Time Out: 0849 Total Billed Treatment Time: 21 Total Billed Treatment 2 visit FA 21' SHIV HERNANDEZ PT Mar 08, 2020 08:49
--- NOTE | 2020-03-08 09:05 | Progress Note - Hospitalist ---
Subjective HPI/CC On Admission Date Seen by Provider: Mar 08, 2020 Time Seen by Provider: 08:59 Jordan Garland is a 69 year old male with PMH HTN, pacemaker, who presented with vertigo. He reports that he felt well when he went to bed last night. When he woke up this morning he kept turning to the left. He was unable to keep his bal ance. He reports double vision. He reports left sided facial numbness. He denies weakness. He denies speech difficulty. He denies chest pain and palpitations. He denies shortness of breath. He does not smoke cigarettes. He does not drink alcohol. He reports that he smokes marijuana daily and has a medical marijuana card for chronic back pain. Subjective/Events-last exam Pt reports doing better today. Still having some double vision. Objective Exam Vital Signs Vital Signs Date Time Temp Pulse Resp B/P (MAP) Pulse Ox O2 Delivery O2 Flow Rate FiO2 03/08/20 08:17 Room Air 03/08/20 07:05 36.8 63 12 125/86 (99) 95 Capillary Refill : Less Than 3 Seconds General Appearance: No Apparent Distress, WD/WN Respiratory: Lungs Clear, No Respiratory Distress Cardiovascular: Regular Rate, Rhythm, No Murmur Neurologic/Psychiatric: Alert, Oriented x3 Results/Procedures Lab Laboratory Tests 03/08/20 03:28 Patient resulted labs reviewed. Imaging: Reviewed Imaging Report Assessment/Plan Assessment and Plan Assess & Plan/Chief Complaint Acute ischemic stroke Dyslipidemia Continue ASA Continue Lipitor Obtain MRI today if able with pacemaker PT/OT consulted IRF evaluation, prefers to go to [place] or [place] if able but agreeable to here Pacemaker HTN Continue diltiazem Continue Coreg and Lisinopril Hydralazine as needed Echo shows EF or 55-65%, grade 1 diastolic dysfunction Monitor on telemetry Consult cardiology, appreciate assistance Leukocytosis- improving Likely reactive, monitor, no evidence of infection DVT prophylaxis: Lovenox Clinical Quality Measures DVT/VTE Risk/Contraindication: Risk Factor Score Per Nursin RFS Level Per Nursing on Admit: 4+=Very High PHILIP SAVAGE MD Mar 08, 2020 09:05
--- NOTE | 2020-03-08 09:49 | Cardiology Progress Note ---
Subjective Date Seen by Provider: Mar 08, 2020 Time Seen by Provider: 10:20 Subjective/Events-last exam Patient sitting up in bed. C/o left sided facial numbness. Denies any chest pain. Review of Systems General: No Chills, No Night Sweats, No Fatigue, No Malaise, No Appetite, No Other HEENT: No Head Aches, No Visual Changes, No Eye Pain, No Ear Pain, No Dysphasia, No Sinus Congestion, No Post Nasal Drip, No Sore Throat, No Other Pulmonary: No Dyspnea, No Cough, No Pleuritic Chest Pain, No Other Cardiovascular: No: Chest Pain, Palpitations, Orthopnea, Paroxysmal Noc. Dyspnea, Edema, Lt Headedness, Other Objective-Cardiology Exam Last Set of Vital Signs Vital Signs 03/08/20 03/08/20 07:05 08:17 Temp 36.8 Pulse 63 Resp 12 B/P (MAP) 125/86 (99) Pulse Ox 95 O2 Delivery Room Air Capillary Refill : Less Than 3 Seconds I&O Intake and Output 03/08/20 00:00 Intake Total 1500 ml Output Total 950 ml Balance 550 ml Intake Oral 1500 ml Output Urine Total 950 ml # Voids 7 # Bowel Movements 1 General: Alert, Oriented X3, Cooperative HEENT: Atraumatic, PERRLA Neck: Supple, No JVD, No Thyromegaly Lungs: Clear to Auscultation, Normal Air Movement Heart: Regular Rate, Normal S1, Normal S2, No Murmurs Abdomen: Normal Bowel Sounds, Soft, No Tenderness, No Hepatosplenomegaly, No Masses Extremities: No Clubbing, No Cyanosis, No Edema, Normal Pulses, No Tenderness/Swelling Skin: No Rashes, No Significant Lesion Neuro: Normal Speech, Strength at 5/5 X4 Ext, Other (left sided facial numbness.) Psych/Mental Status: Mental Status NL, Mood NL Results Lab Laboratory Tests 03/08/20 03:28 A/P-Cardiology Admission Diagnosis CVA PPM HTN HLP Assessment/Plan acute CVA with left sided facial numbness and gait instability. Carotid duplex WNL. dual chamber PPM interogation shows no AF episodes. Echocardiogram reveals normal LVEF. bubble study tomorrow. Continue antiplatelet therapy. Planning for MRI today SSS/PPM- [employer], MRI safe. Follows with Dr. Chacon. Interrogation done showing no episode of AF Hyperlipidemia- start Lipitor. HTN, continue to monitor. Patient was seen and evaluated with Aurea, examination performed, management plan was discussed, agree with the current scribed note, I made few changes to the note using Italic font Patient was seen and evaluated with Aurea, has been doing well, still having some numbness on his face. Denied any chest pain Planning for MRI of the head today No source of embolization was identified, continue on aspirin Continue to monitor blood pressure lipids Clinical Quality Measures DVT/VTE Risk/Contraindication: Risk Factor Score Per Nursin RFS Level Per Nursing on Admit: 4+=Very High AUREA FITZPATRICK Mar 08, 2020 9:49 am BENNY LLANES MD Mar 08, 2020 11:11 am
--- NOTE | 2020-03-08 10:00 | NUR ---
smoking cessation edu orders rec'd. 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 Visited with pt about smoking cessation. Offered Darian quit information/number and mentioned [facility] classes at the hospital once again when we are given the go-ahead to begin classes once again. Handout on smoking cessation given. patient appreciative of information, plans to implement once he returns home. States he is active in his grandchildren's lives and wants to continue being active and healthy for them.
[2020-03-08 11:17] VITALS: BP 106/66
[2020-03-08] MEDS ORDERED: DILT240C91 PO (11:20)
[2020-03-08] MEDS ORDERED: ZOLP10TA PO (11:20)
[2020-03-08] MEDS ORDERED: MTP25TSR PO (11:20)
--- NOTE | 2020-03-08 11:22 | NUR ---
SPOKE WITH THE PT AND WENT THRU THE EXT MED HISTORY TO COMPLETE THE MED REC DILTIAZEM IS PAST DUE FOR A REFILL- LAST FILL DATE IS 10-15-2019 #90/90DS AND I INCLUDED IT ON THE MED REC. WHEN I ASKED THE PT ABOUT THE PAST DUE FILL HE LET ME KNOW THAT MAIL ORDER SENDS NEW ORDERS BEFORE HE IS OUT. THE PREVIOUS FILL WAS IN JULY 2019 SO IT MAY HAVE BEEN 2-3 WEEKS EARLY BUT SHOULD BE OUT AT THIS TIME. OTC MEDS: NONE
--- NOTE | 2020-03-08 12:46 | NUR ---
IRF Evaluation Determination: Accepted Chart review complete and findings discussed with Dr. Chowdhury - patient accepted. Patient does have a primary payer source of [employer]; therefore, prior authorization will need to be obtained. This process has been initiated, awaiting their request for clinical information. Will continue to follow. Thank you for this referral.
--- NOTE | 2020-03-08 13:09 | Diagnostic Imaging Report ---
PROCEDURE: US carotid duplex, bilateral. TECHNIQUE: Multiple real-time grayscale images were obtained over the carotid arteries in various projections, bilaterally. Additional spectral analysis and color Doppler duplex images were also obtained. INDICATION: CVA There are no prior ultrasound examinations available for comparison. The CTA head and neck exam of 03/06/2020 failed to show any sign of a hemodynamically significant stenosis of either carotid system. On this exam there is mild hard and soft plaque formation in both carotid systems. The flow velocities failed to show any sign of a hemodynamically significant stenosis. Both vertebral arteries were identified and there was antegrade flow bilaterally. IMPRESSION: There is mild atherosclerotic disease involving both carotid systems. There is no evidence for hemodynamically significant stenosis of either carotid system. Parameters based on the consensus panel [place]alvo-Scale and Doppler ultrasound criteria published December 2002, Radiology, Volume 229. DOPPLER (peak systolic velocity M/S Right Left CCA .90 .81 ICA Proximal .55 .60 ICA Mid .67 .53 ICA Distal .64 .47 RATIO .75 .74 ECA 1.29 1.24 VERT .40 .45 Dictated by: Dictated on workstation # [id number]
[2020-03-08] MEDS ORDERED: GADOBUTROL 7.5 MMOL/7.5 ML (GADAVIST) VIAL IV ONE (15:00)
--- NOTE | 2020-03-08 15:04 | Diagnostic Imaging Report ---
EXAMINATION: PA chest at 2:52 p.m. INDICATION: Pre-MRI screening with pacemaker. The left-sided pacemaker seen on the prior exam of 03/06/2020 is again evident. The pacer leads seem to be intact. The heart size is within normal limits and stable when compared to the prior exam. The lungs remain clear. There is still no sign of failure, pneumonia or a pleural effusion to indicate an acute abnormality. There is an incompletely healed fracture of the midshaft of the right sixth rib. There is no acute bony abnormality identified. IMPRESSION: 1. The left-sided pacemaker appears to be in good position and the leads seem to be intact. 2. There is no acute cardiopulmonary abnormality identified. Dictated by: Dictated on workstation # [id number]
--- NOTE | 2020-03-08 15:55 | Occupational Therapy Eval ---
OT Evaluation-General/PLF Medical Diagnosis Admission Date Mar 06, 2020 at 10:57 Medical Diagnosis: CVA Onset Date: Mar 06, 2020 Therapy Diagnosis Therapy Diagnosis: Weakness, Decreased ADL skills Precautions Precautions/Isolations: Fall Prevention, Standard Precautions Weight Bear Status Weight Bearing Restriction: Weight Bearing/Tolerated Referral Physician: Dr. White Referral Reason: Activity Tolerance, Self Care, Evaluation/Treatment, Strengthening/ROM Medical History Pertinent Medical History: HTN Additional Medical History Vertigo, pacemaker, dyslipidemia Reviewed History: Yes Social History Home: Single Level Current Living Status: Spouse ADL-Prior Level of Function SCALE: Activities may be completed with or without assistive devices. 2-Xarewdkloo-kbootuh completes the activity by him/herself with no assistance from a helper. 5-Set-up or Clean-up Assistance-helper sets up or cleans up; patient completes activity. [place] assists only prior to or following the activity. 4-Supervision or Touching Assistance-helper provides verbal cues and/or touching/steadying and/or contact guard assistance as patient completes activity. Assistance may be provided throughout the activity or intermittently. 3-Partial/Moderate Assistance-helper does LESS THAN HALF the effort. [place] lifts, holds or supports trunk or limbs, but provides less than half the effort. 2-Substantial/Maximal Assistance-helper does MORE THAN HALF the effort. [place] lifts or holds trunk or limbs and provides more than half the effort. 0-Rpkzjxzwv-tvyibl does ALL the effort. Patient does none of the effort to complete the activity. Or, the assistance of 2 or more helpers is required for the patient to complete the activity. If activity was not attempted, code reason: 7-Patient Refused. 9-Not Applicable-not attempted and the patient did not perform the activity before the current illness, exacerbation or injury. 10-Not Attempted due to Environmental Limitations-(lack of equipment, weather restraints, etc.). 88-Not Attempted due to Medical Conditions or Safety Concerns. ADL PLOF Comments Prior to this hospitalization, pt. independent with daily tasks. Pt. does not use an assistive device. Self Care: Independent Functional Cognition: Independent Drive Self: Yes OT Current Status Subjective No pain reported but pt. states he is seeing double. Mental Status/Objective Patient Orientation: Person, Place ADL-Treatment Shower/Bathe Self (QC): 3 (Please see note.) Lower Body Dressing (QC): 3 (Please see note.) On/Off Footwear (QC): 4 (CGA sitting on side of bed to doff/don slipper socks.) Toileting Hygiene (QC): 3 (Please see note.) Other Treatments OT order received, chart reviewed. OT completed quick evaluation due to pt. getting ready to go to imaging for MRI. Pt. in bed. Alert but closing left eye. Pt. verbalizes that he is having double vision. Pt. transfers supine-sit with min assist. Upon sitting up he reports dizziness. While seated, pt. is able to bring bilateral feet up to him to doff/don slipper socks, but requires steadying assistance on side of bed. OT assists pt. to wheelchair. Upon standing, it was noted that pt. unsteady on feet. He reports dizziness. Poor balance without assistance. Therefore, pt.required hand held assist and gait belt assistance to stand and transfer. Due to having poor dynamic standing balance, activities such as pulling up pants over hips, standing to wash caitlin area in shower, and toileting tasks would require at least most assistance from this professional opinion. Poor balance and double vision will also impair all levels of functional mobility. Once pt. in wheelchair, metal room dental technician took him for testing. Will complete further testing and skills training in a.m. Education OT Patient Education: Correct positioning, Modified ADL techniques, Progress toward Goal/Update tx plan, Purpose of tx/functional activities, Reviewed precautions, Rehab process, Transfer techniques Teaching Recipient: Patient Teaching Methods: Demonstration, Discussion Response to Teaching: Verbalize Understanding, Return Demonstration OT Short Term Goals Short Term Goals Time Frame: Mar 15, 2020 Eatin Oral hygiene: 6 Toileting hygiene: 4 Shower/bathe self: 4 Upper body dressin Lower body dressin Putting on/taking off footwear: 4 OT Adolescent Medicine Specialist Goals Adolescent Medicine Specialist Goals Time Frame: Mar 22, 2020 Eating (QC): 6 Oral Hygiene (QC): 6 Toileting Hygiene (QC): 6 Shower/Bathe Self (QC): 5 Upper Body Dressing (QC): 6 Lower Body Dressing (QC): 6 On/Off Footwear (QC): 6 Additional Goals: 1-Demonstrate ADL Tasks, 2-Verbalize Understanding, 3- ImproveStrength/Patria 1=Demonstrate adherence to instructed precautions during ADL tasks. 2=Patient will verbalize/demonstrate understanding of assistive devices/modifications for ADL. 3=Patient will improve strength/tolerance for activity to enable patient to perform ADL's. OT Education/Plan Problem List/Assessment Assessment: Decreased Activ Tolerance, Dependent Transfers, Impaired Funct Balance, Impaired I ADL's, Impaired Self-Care Skills, Visual-Perceptual Deficit Discharge Recommendations Plan/Recommendations: Continue POC Therapy Discharge Recommendati: Post Acute OT Target Placement Pt. would benefit from continued occupational therapy services prior to discharge to make sure that pt. is safe within home environment. He would benefit from ADL training, visual perceptual and spatial assessment, continued UE strengthening/coordination assessment, and continued mobility training for balance and Vertigo. Treatment Plan/Plan of Care Treatment,Training & Education: Yes Patient would benefit from OT for education, treatment and training to promote independence in ADL's, mobility, safety and/or upper extremity function for ADL's. Plan of Care: ADL Retraining, Functional Mobility, UE Funct Exercise/Act, Visual/Perceptual Retrain Treatment Duration: Mar 22, 2020 Frequency: 5 times per week Estimated Hrs Per Day: .5 hour per day Agreement: Yes Rehab Potential: Good Time/GCodes Start Time: 14:40 Stop Time: 14:50 Total Time Billed (hr/min): 10 Billed Treatment Time 1, KLAUS SOLIS OT Mar 08, 2020 15:55
[2020-03-08 15:56] VITALS: BP 94/62
--- NOTE | 2020-03-08 16:34 | Diagnostic Imaging Report ---
PROCEDURE: MR imaging of the brain with and without contrast. TECHNIQUE: Multiplanar, multisequence MR imaging of the brain was performed with and without contrast. INDICATION: Balance problems. COMPARISON: 03/06/2020. FINDINGS: Acute/subacute ischemia is visualized involving the left posterior aspect of the medulla oblongata. No associated hemorrhage or mass effect is seen at this time. No evidence of effacement of the fourth ventricle. No acute hydrocephalus. Scattered T2 hyperintense signal is seen in the periventricular and subcortical white matter in the bilateral cerebral hemispheres. Scattered foci of susceptibility artifact are seen in the left frontal lobe and right parietal lobe, favored to represent old blood products. A DVA is noted in the left frontal lobe. No masslike enhancement is seen. The ventricles, cortical sulci, and basilar cisterns are symmetric and unremarkable. The sellar and suprasellar regions have a normal appearance. Mucosal thickening and retained secretions are seen throughout the paranasal sinuses. The mastoid air cells demonstrate normal signal characteristics. The globes and orbits are symmetric and unremarkable. The scalp and calvarium have a normal appearance. IMPRESSION: 1. Acute/subacute ischemia involving the left posterior aspect of the medulla oblongata. No associated hemorrhage, mass effect, or effacement of the fourth ventricle is seen. 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 2. Scattered chronic microvascular disease in the periventricular and subcortical white matter. 3. Pansinusitis. Dictated by: Dictated on workstation # [id number]
[2020-03-08 19:49] VITALS: BP 149/74
[2020-03-08] MEDS: ENOXAPARIN 40 MG/0.4 ML (LOVENOX) SYR SC SCH (20:28)
[2020-03-08] MEDS: chlorproMAZINE 25 MG (THORAZINE) TAB PO PRN (20:31)
[2020-03-09] VITALS: BP 116/68
[2020-03-09 04:11] VITALS: BP 121/70
[2020-03-09] MEDS: CATHETER FLUSH 10 ML SYR IV SCH ×2 (05:53→13:36)
[2020-03-09 08:12] VITALS: BP 123/80
[2020-03-09] MEDS: chlorproMAZINE 25 MG (THORAZINE) TAB PO PRN (08:20)
--- NOTE | 2020-03-09 08:41 | Cardiology Progress Note ---
Subjective Date Seen by Provider: Mar 09, 2020 Time Seen by Provider: 08:39 Subjective/Events-last exam patient was seen at bedside laying down comfortably, still having slight nu mbness on his face, overall reporting improvement Review of Systems General: No Chills, No Night Sweats, No Fatigue, No Malaise, No Appetite, No Other HEENT: No Head Aches, No Visual Changes, No Eye Pain, No Ear Pain, No Dysphasia, No Sinus Congestion, No Post Nasal Drip, No Sore Throat, No Other Pulmonary: No Dyspnea, No Cough, No Pleuritic Chest Pain, No Other Cardiovascular: No: Chest Pain, Palpitations, Orthopnea, Paroxysmal Noc. Dyspnea, Edema, Lt Headedness, Other Objective-Cardiology Exam Last Set of Vital Signs Vital Signs 03/09/20 08:12 Temp 36.6 Pulse 69 Resp 20 B/P (MAP) 123/80 (94) Pulse Ox 96 O2 Delivery Room Air Capillary Refill : Less Than 3 Seconds I&O l Intake and Output 03/09/20 00:00 Intake Total 2000 ml Output Total 400 ml Balance 1600 ml Intake Oral 2000 ml Output Urine Total 400 ml # Voids 4 # Bowel Movements 1 General: Alert, Oriented X3, Cooperative HEENT: Atraumatic, PERRLA Neck: Supple, No JVD, No Thyromegaly Lungs: Clear to Auscultation, Normal Air Movement Heart: Regular Rate, Normal S1, Normal S2, No Murmurs Abdomen: Normal Bowel Sounds, Soft, No Tenderness, No Hepatosplenomegaly, No Masses Extremities: No Clubbing, No Cyanosis, No Edema, Normal Pulses, No Tenderness/Swelling Skin: No Rashes, No Significant Lesion Neuro: Normal Speech, Strength at 5/5 X4 Ext, Other (left sided facial numbness.) Psych/Mental Status: Mental Status NL, Mood NL A/P-Cardiology Admission Diagnosis CVA PPM HTN HLP Assessment/Plan Acute CVA with left sided facial numbness and gait instability. Carotid duplex WNL. dual chamber PPM interogation shows no AF episodes. Echocardiogram reveals normal LVEF. bubble study tomorrow. MRI of the head showed small stroke. Continue on aspirin. Continue with PT and OT SSS/PPM- [employer], MRI safe. Follows with Dr. Chacon. Interrogation done showing no episode of AF Hyperlipidemia, started on Lipitor. Continue to monitor HTN, continue to monitor. Clinical Quality Measures DVT/VTE Risk/Contraindication: Risk Factor Score Per Nursin RFS Level Per Nursing on Admit: 4+=Very High BENNY LLANES MD Mar 09, 2020 08:41
[2020-03-09] MEDS: lisINopril 20 MG (PRINIVIL) TABLET PO SCH (08:48)
[2020-03-09] MEDS: CARVEDILOL 6.25 MG (COREG) TAB PO SCH (08:48)
[2020-03-09] MEDS: ASPIRIN E.C. 325 MG (ECOTRIN) TABLET PO SCH (08:48)
[2020-03-09] MEDS: DOCUSATE SODIUM 100 MG (COLACE) CAP PO SCH (08:48)
--- NOTE | 2020-03-09 09:11 | Occupational Ther Daily Note ---
OT Current Status-Daily Note Subjective Pt. reports being "light headed" and having double vision. BP taken and is 130/77 while sitting. No pain reported. Appearance Pt. in bed. Alert and oriented. Agreeable to work with OT. Mental Status/Objective Patient Orientation: Person, Place, Time, Situation ADL-Treatment Therapy Code Descriptions/Definitions Functional [place] Measure: 0=Not Assessed/NA 4=Minimal Assistance 1=Total Assistance 5=Supervision or Setup 2=Maximal Assistance 6=Modified [place] 3=Moderate Assistance 7=Complete IndependenceSCALE: Activities may be completed with or without assistive devices. 7-Ciotgodroa-gavulzb completes the activity by him/herself with no assistance from a helper. 5-Set-up or Clean-up Assistance-helper sets up or cleans up; patient completes activity. [place] assists only prior to or following the activity. 4-Supervision or Touching Assistance-helper provides verbal cues and/or touc [place]/steadying and/or contact guard assistance as patient completes activity. Assistance may be provided throughout the activity or intermittently. 3-Partial/Moderate Assistance-helper does LESS THAN HALF the effort. [place] lifts, holds or supports trunk or limbs, but provides less than half the effort. 2-Substantial/Maximal Assistance-helper does MORE THAN HALF the effort. [place] lifts or holds trunk or limbs and provides more than half the effort. 6-Uevcvquej-mmckjq does ALL the effort. Patient does none of the effort to complete the activity. Or, the assistance of 2 or more helpers is required for the patient to complete the activity. If activity was not attempted, code reason: 7-Patient Refused. 9-Not Applicable-not attempted and the patient did not perform the activity before the current illness, exacerbation or injury. 10-Not Attempted due to Environmental Limitations-(lack of equipment, weather restraints, etc.). 88-Not Attempted due to Medical Conditions or Safety Concerns. Shower/Bathe Self (QC): 3 (Min assist for balance in stance while washing caitlin area. Pt. able to bathe all other parts.) Upper Body Dressing (QC): 4 (SBA while seated to doff/don shirt.) Lower Body Dressing (QC): 3 (Min assist in stance for balance while donning shorts over hips.) On/Off Footwear: 4 Toileting Hygiene (QC): 3 (Pt. did not have to use toilet with this therapist, but reports that he had someone to assist him earlier.) Toilet Transfer (QC): 3 Other Treatment Pt. in bed. Agreeable to work with OT. Pt. is closing one eye and reports continued double vision. Pt. educated about this and possible need for eye patch and continued visual assessment. Transferred supine-sit with SBA. Reports dizziness and light headedness. Pt. encouraged to sit and take his time during ADLs. Agrees to sponge bath on side of bed as he is unsure how he will tolerate a shower just yet. Pt. requires min assist in stance during ADLs due to unsteady dynamic balance. Pt. reports fatigue after ADLs and requests to lay back down in bed. Transferred sit-supine with SBA. All needs met. Education OT Patient Education: Correct positioning, Modified ADL techniques, Progress toward Goal/Update tx plan, Purpose of tx/functional activities, Reviewed precautions, Rehab process, Transfer techniques Teaching Recipient: Patient Teaching Methods: Demonstration, Discussion Response to Teaching: Verbalize Understanding, Return Demonstration OT Short Term Goals Short Term Goals Time Frame: Mar 15, 2020 Eatin Oral hygiene: 6 Toileting hygiene: 4 Shower/bathe self: 4 Upper body dressin Lower body dressin Putting on/taking off footwear: 4 OT Correction Goals Clinical Trials Systems Administrator Goals Time Frame: Mar 22, 2020 Eating (QC): 6 Oral Hygiene (QC): 6 Toileting Hygiene (QC): 6 Shower/Bathe Self (QC): 5 Upper Body Dressing (QC): 6 Lower Body Dressing (QC): 6 On/Off Footwear (QC): 6 Additional Goals: 1-Demonstrate ADL Tasks, 2-Verbalize Understanding, 3- ImproveStrength/Pat[place] 1=Demonstrate adherence to instructed precautions during ADL tasks. 2=Patient will verbalize/demonstrate understanding of assistive devices/modifications for ADL. 3=Patient will improve strength/tolerance for activity to enable patient to perform ADL's. OT Education/Plan Problem List/Assessment Assessment: Decreased Activ Tolerance, Dependent Transfers, Impaired Funct Balance, Impaired I ADL's, Impaired Self-Care Skills Discharge Recommendations Plan/Recommendations: Continue POC Therapy Discharge Recommendati: Post Acute OT Comment Equipment needs to be determined. Treatment Plan/Plan of Care Treatment,Training & Education: Yes Patient would benefit from OT for education, treatment and training to promote independence in ADL's, mobility, safety and/or upper extremity function for A DL's. Plan of Care: ADL Retraining, Functional Mobility, UE Funct Exercise/Act, Visual/Perceptual Retrain Treatment Duration: Mar 22, 2020 Frequency: 5 times per week Estimated Hrs Per Day: .5 hour per day Agreement: Yes Rehab Potential: Good Time/GCodes Start Time: 08:25 Stop Time: 08:50 Total Time Billed (hr/min): 25 Billed Treatment Time 1, ADL x 2 KLAUS RICHARDSON OT Mar 09, 2020 09:11
--- NOTE | 2020-03-09 11:03 | Physical Therapy Daily Note ---
PT Daily Note-Current Subjective Patient in bed pre tx, agrees to PT, has no complaints of pain. Appearance Patient in recliner post tx with nurse call, phone, tray, all needs met. Mental Status Patient Orientation: Person, Place, Situation Transfers SCALE: Activities may be completed with or without assistive devices. 4-Nxmacusmyd-sagaoti completes the activity by him/herself with no assistance from a helper. 5-Set-up or Clean-up Assistance-helper sets up or cleans up; patient completes activity. [place] assists only prior to or following the activity. 4-Supervision or Touching Assistance-helper provides verbal cues and/or touching /steadying and/or contact guard assistance as patient completes activity. Assistance may be provided throughout the activity or intermittently. 3-Partial/Moderate Assistance-helper does LESS THAN HALF the effort. [place] lifts, holds or supports trunk or limbs, but provides less than half the effort. 2-Substantial/Maximal Assistance-helper does MORE THAN HALF the effort. [place] lifts or holds trunk or limbs and provides more than half the effort. 4-Jiizcsqys-rjfmtw does ALL the effort. Patient does none of the effort to complete the activity. Or, the assistance of 2 or more helpers is required for the patient to complete the activity. If activity was not attempted, code reason: 7-Patient Refused. 9-Not Applicable-not attempted and the patient did not perform the activity before the current illness, exacerbation or injury. 10-Not Attempted due to Environmental Limitations-(lack of equipment, weather restraints, etc.). 88-Not Attempted due to Medical Conditions or Safety Concerns. Roll Left & Right (QC): 6 Lying to Sitting/Side of Bed(Q: 6 Sit to Stand (QC): 3 Chair/Ers-ga-Ntaty Xfer(QC): 3 Weight Bearing Right Lower Extremity: Right Full Weight Bearing Left Lower Extremity: Left Full Weight Bearing Gait Training Distance: 30', 20' Walk 10 feet (QC): 3 Gait Persons Needed: 1 Gait Assistive Device: FWW Min assist for balance, patient occasionally leans to the left some but has more of an issue with ataxia, uncoordinated steps Treatments bed mobility and transfers, ambulation Assessment Current Status: [place] says he gets light headed during ambulation PT Intelligence Specialist Goals Intelligence Specialist Goals PT Long-Term Goals Time Frame: Mar 13, 2020 Roll Left & Right (QC): 6 Sit to Lying (QC): 6 Lying-Sitting on Side/Bed(QC): 6 Sit to Stand (QC): 6 Chair/Fjg-ke-Ehxul Xfer(QC): 6 Does the Patient Walk: Yes Walk 10 feet (QC): 4 Walk 50ft with 2 Turns (QC): 4 Walk 150 ft (QC): 4 PT Plan Problem List Problem List: Activity Tolerance, Functional Strength, Safety, Balance, Gait, Transfer Treatment/Plan Treatment Plan: Continue Plan of Care Treatment Plan: Bed Mobility, Education, Functional Activity [place], Functional Strength, Gait, Safety, Therapeutic Exercise, Transfers Treatment Duration: Mar 13, 2020 Frequency: 6 times per week Estimated Hrs Per Day: .25 hour per day Patient and/or Family Agrees t: Yes Safety Risks/Education Patient Education: Gait Training, Transfer Techniques, Correct Positioning, Safety Issues Teaching Recipient: Patient Teaching Methods: Demonstration, Discussion Response to Teaching: Reinforcement Needed Time/GCodes Time In: 1043 Time Out: 1056 Total Billed Treatment Time: 13 Total Billed Treatment 1 visit GT 13' SHIV HERNANDEZ PT Mar 09, 2020 11:03
[2020-03-09 11:28] VITALS: BP 98/68
--- NOTE | 2020-03-09 13:25 | Discharge Summary ---
Diagnosis/Chief Complaint Date of Admission Mar 06, 2020 at 10:57 Date of Discharge Admission Diagnosis Acute ishcemic stroke Primary Care No,Local Physician Discharge Diagnosis (1) Stroke Status: Acute (2) Pacemaker Status: Chronic (3) Dyslipidemia Status: Acute (4) HTN (hypertension) Status: Acute (5) Leukocytosis Status: Acute Discharge Summary Discharge Physical Exam Allergies: Coded Allergies: Penicillins (Verified Allergy, Unknown, 03/06/20) Vitals & I&Os Vital Signs Date Time Temp Pulse Resp B/P (MAP) Pulse Ox O2 Delivery O2 Flow Rate FiO2 03/09/20 11:28 36.5 61 20 98/68 (78) 95 Room Air General Appearance: No Apparent Distress, WD/WN Cardiovascular: Regular Rate, Rhythm, No Murmur Gastrointestinal: Normal Bowel Sounds, Non Tender, Soft Neurologic/Psychiatric: Alert, Oriented x3 Hospital Course Pt was admitted with left sided weakness, facial numbness, and diplopia. 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 He was seen by PT/OT and improved throughout his stay. He was evaluated by Inpatient rehab and deemed and appropriate candidate. He was discharged there in stable and improved condition to continue strengthening. Labs (last 24 hrs) Patient resulted labs reviewed. Imaging: Reviewed Imaging Report Discussion & Recommendations Discharge Planning: >30 minutes discharge planning Discharge Home Medications: Active Scripts Active Reported Diltiazem 24Hr ER (Diltiazem HCl) 240 Mg Cap.er.24h 240 Mg PO DAILY LAST FILLED 10-14-2019 #90/90 DAY SUPPLY Metoprolol Succinate 25 Mg Tab.er.24h 25 Mg PO DAILY Ambien (Zolpidem Tartrate) 10 Mg Tablet 10 Mg PO HS Instructions to patient/family Please see electronic discharge instructions given to patient. Clinical Quality Measures DVT/VTE Risk/Contraindication: Risk Factor Score Per Nursin RFS Level Per Nursing on Admit: 4+=Very High Problem Qualifiers (1) HTN (hypertension): Hypertension type: essential hypertension Qualified Codes: I10 - Essential (primary) hypertension PHILIP SAVAGE MD Mar 09, 2020 13:24
[2020-03-09 15:22] VITALS: BP_SYST 104; BP_DIAS 66; BP_DIAS 86
[2020-03-09] MEDS ORDERED: CARV6.252 PO (15:23)
[2020-03-09] MEDS ORDERED: ASPI325T32 PO (15:23)
[2020-03-09] MEDS ORDERED: LISI-552 PO (15:23)
[2020-03-09] MEDS ORDERED: ATOR80TA76 PO (15:23)
[2020-03-09 15:55] VITALS: BP 104/66
--- NOTE | 2020-03-09 15:55 | NUR ---
REPORT CALLED TO ABBE MERINO. PT EDUCATED ON DC INSTRUCTIONS. PT STATED UNDERSTANDING. PT TAKEN DOWN TO REHAB BY PHYSICAL THERAPY AND OCCUPATIONAL THERAPY WITH BELONGINGS.
== END 2020-03-09 15:55 | DRG 65 ==
LOC: ER 07:33 → CSD 10:57
PROVIDERS: ADMIT Internal Medicine; ATTEND Internal Medicine
DX: I63.89 Other cerebral infarction (principal); G81.94 Hemiplegia, unspecified affecting left nondominant side; G46.3 Brain stem stroke syndrome; R29.810 Facial weakness; R26.89 Other abnormalities of gait and mobility; H53.2 Diplopia; R42 Dizziness and giddiness; R29.701 NIHSS score 1; I49.5 Sick sinus syndrome; Z95.0 Presence of cardiac pacemaker; I10 Essential (primary) hypertension; F12.90 Cannabis use, unspecified, uncomplicated; M54.9 Dorsalgia, unspecified; E78.5 Hyperlipidemia, unspecified; Z88.0 Allergy status to penicillin
CPT/HCPCS: 36415; 70450; 70496; 70498; 70553; 71045; 80048; 80061; 83036; 85007; 85025; 85027; 93005; 93306; 93308; 93880; 94664

== ENCOUNTER 2020-03-09 15:11 | Inpatient (IN) | payer MEDICARE ==
[~2020-03-09] VITALS: Ht 182.9 cm; Wt 93.5 kg
[~2020-03-09 15:11] MED LIST: DILT240C91 PO; MTP25TSR PO; ZOLP10TA PO
[2020-03-09] MEDS ORDERED: ATOR80TA76 PO (15:23)
[2020-03-09] MEDS ORDERED: ASPI325T32 PO (15:23)
[2020-03-09] MEDS ORDERED: CARV6.252 PO (15:23)
[2020-03-09] MEDS ORDERED: LISI-552 PO (15:23)
[2020-03-09] MEDS ORDERED: LOPERAMIDE 2 MG (IMODIUM) TABLET PO PRN (15:45)
[2020-03-09] MEDS ORDERED: CALCIUM CARBONATE 500 MG (TUMS) TAB.CHEW PO PRN (15:45)
[2020-03-09] MEDS ORDERED: diphenhydrAMINE 25 MG TAB (BENADRYL) PO PRN (15:45)
[2020-03-09] MEDS ORDERED: BISACODYL 10 MG SUPP (DULCOLAX) PR PRN (15:45)
[2020-03-09] MEDS ORDERED: ONDANSETRON 4 MG (ZOFRAN) ORAL DISSOLVE TAB PO PRN (15:45)
[2020-03-09] MEDS ORDERED: FLEET ENEMA ADULT 1 EA BTL PR PRN (15:45)
[2020-03-09] MEDS ORDERED: DOCUSATE SODIUM 100 MG (COLACE) CAP PO PRN (15:45)
[2020-03-09] MEDS ORDERED: LACTULOSE SYRUP 10GM/15ML (ENULOSE) 30ML UDC PO PRN (15:45)
--- NOTE | 2020-03-09 15:45 | NUR ---
Jordan Garland admitted to room 431, with an admitting diagnosis of CVA, on 03/09/2020 from Cardiac Step Down via wheelchair, accompanied by staff. JORDAN GARLAND introduced to surroundings, call light, bed controls, phone, TV, temperature control, lights, meal times, smoking policy, visitor policy, side rail policy, bathrooms and showers. Patient Rights given to patient in the handbook.JORDAN GARLAND verbalizes understanding that [facility] is not responsible for the loss or damage to any personal effects or valuables that are kept in the patients possession during their hospitalization. The following Patient Care Plans were discussed with the patient: Discharge Planning, CVA, and Falls. JORDAN GARLAND verbalizes understanding of Interdisciplinary Patient Education. Patient and/or family were informed about the Rapid Response Team and its purpose. Patient received Patient Rights Booklet, which includes Privacy Act Statement and Data Collection Information Summary.
[2020-03-09 16:15] VITALS: BP 126/60
--- NOTE | 2020-03-09 16:21 | Physical Therapy Evaluation ---
PT Evaluation-General Medical Diagnosis Admission Date Medical Diagnosis: CVA Onset Date: Mar 06, 2020 Therapy Diagnosis Therapy Diagnosis: impaired mobility, endurance, balance, strength Referral Physician: Cathi Chowdhury DO Reason for Referral: Evaluation/Treatment Medical History Pertinent Medical History: HTN Additional Medical History pacemaker Reviewed History: Yes Social History Home: Single Level Current Living Status: Spouse Prior Prior Level of Function SCALE: Activities may be completed with or without assistive devices. 4-Agdrfnjlng-tfwzags completes the activity by him/herself with no assistance from a helper. 5-Set-up or Clean-up Assistance-helper sets up or cleans up; patient completes activity. [place] assists only prior to or following the activity. 4-Supervision or Touching Assistance-helper provides verbal cues and/or touching/steadying and/or contact guard assistance as patient completes activity. Assistance may be provided throughout the activity or intermittently. 3-Partial/Moderate Assistance-helper does LESS THAN HALF the effort. [place] lifts, holds or supports trunk or limbs, but provides less than half the effort. 2-Substantial/Maximal Assistance-helper does MORE THAN HALF the effort. [place] lifts or holds trunk or limbs and provides more than half the effort. 5-Xymcbpazb-eeoduv does ALL the effort. Patient does none of the effort to complete the activity. Or, the assistance of 2 or more helpers is required for the patient to complete the activity. If activity was not attempted, code reason: 7-Patient Refused. 9-Not Applicable-not attempted and the patient did not perform the activity before the current illness, exacerbation or injury. 10-Not Attempted due to Environmental Limitations-(lack of equipment, weather restraints, etc.). 88-Not Attempted due to Medical Conditions or Safety Concerns. Bed Mobility: 6 Transfers (B,C,W/C): 6 Gait: 6 Stairs: 6 Indoor Mobility (Ambulation): Independent Stairs: Independent PT Evaluation-Current Subjective Patient in bed pre tx, agrees to PT, has no complaints of pain. Pt/Family Goals "to be able to walk again" Objective Patient Orientation: Person, Place, Situation ROM/Strength ROM Lower Extremities WNL Strength Lower Extremities RLE 5/5 gross, LLE 4+/5 gross Neuromuscular (Tone, Coordination, Reflexes) patient has double vision Sensory Hearing: Functional Sensation Right Lower Extremit: Intact Sensation Left Lower Extremity: Intact Transfers Roll Left & Right (QC): 6 Sit to Lying (QC): 6 Lying to Sitting/Side of Bed(Q: 6 Sit to Stand (QC): 4 Chair/Zhf-xz-Eexow Xfer(QC): 3 Toilet Transfer (QC): 3 Car Transfer (QC): 3 Patient performs bed mobility and supine <-> sit with independence, sit <-> stand CGA, transfers and car transfer min assist. Patient needs assist maintaining balance during transfers. Gait Does the Patient Walk?: Yes Mode of Locomotion: Walk Anticipated Mode of Locomotion: Walk Walk 10 feet (QC): 3 Walk 50 ft with 2 Turns(QC): 3 Walk 150 ft (QC): 88 Walking 10ft/uneven surface-QC: 3 Distance: 100', 120' Gait Assistive Device: FWW Comments/Gait Description Patient can ambulate 120' with a rolling walker with min assist (including 50' with at least 2 turns of 90 degrees and 10' over an uneven surface), his ambulation is ataxic, needs min assist to maintain balance, uncoordinated steps. Wheelchair Training Does the Pt Use a Wheelchair?: Yes Wheel 50 ft with 2 turns (QC): 4 Wheel 150 ft (QC): 88 Type of Wheelchair: Manual Stairs 1 Step (curb) (QC): 3 4 Steps (QC): 88 12 Steps (QC): 88 Balance Sitting Static: Normal Sitting Dynamic: Normal Standing Static: Poor Standing Dynamic: Poor Picking up an Object (QC): 88 Treatment PT performed testing and functional mobility, assisted with balance during dressing, OT worked on dressing, UE positioning and safety during activity. Assessment/Needs Patient in bed post tx with nurse call, phone, tray, all needs met. Patient has ataxia during transfers and ambulation, needs min assist. Rehab Potential: Fair PT Short Term Goals Short Term Goals Time Frame: Mar 16, 2020 Roll Left & Right: 6 Sit to lyin Lying to sitting on side of be: 6 Sit to stand: 4 Chair/kuv-rf-fyrur transfer: 4 Walk 10 feet: 4 Walk 50 feet with two turns: 4 Walk 150 feet: 4 PT Hotel Front Office Manager Goals Hotel Front Office Manager Goals PT [facility] Goals Time Frame: Mar 30, 2020 Roll Left & Right (QC): 6 Sit to Lying (QC): 6 Lying-Sitting on Side/Bed(QC): 6 Sit to Stand (QC): 4 (SBA) Chair/Nbt-wg-Asytw Xfer(QC): 4 (SBA) Toilet Transfer (QC): 4 (SBA) Car Transfer (QC): 4 (SBA) Does the Patient Walk: Yes Walk 10 feet (QC): 4 (SBA) Walk 50ft with 2 Turns (QC): 4 (SBA) Walk 150 ft (QC): 4 (SBA) Walking 10ft on Uneven Surface: 4 (CGA) 1 Step (curb) (QC): 4 (CGA) 4 Steps (QC): 4 (CGA) 12 Steps (QC): 88 Picking up an Object (QC): 4 (CGA) Wheel 50 feet with 2 turns (QC: 6 Wheel 150 feet: 6 PT Plan Problem List Problem List: Activity Tolerance, Functional Strength, Safety, Balance, Gait, Transfer Treatment/Plan Treatment Plan: Continue Plan of Care Treatment Plan: Education, Functional Activity Patria, Functional Strength, Gait, Safety, Therapeutic Exercise, Transfers Treatment Duration: Mar 30, 2020 Frequency: At least 5 of 7 days/Wk (IRF) Estimated Hrs Per Day: 1.5 hours per day Patient and/or Family Agrees t: Yes Safety Risks/Education Patient Education: Gait Training, Transfer Techniques, Steps, Correct Positioning, W/C Management, Safety Issues Teaching Recipient: Patient Teaching Methods: Demonstration, Discussion Response to Teaching: Reinforcement Needed Discharge Recommendations Plan Patient will perform bed mobility and transfer training, balance and endurance training, functional strengthening, stair training, gait training, and education, to improve functional mobility and independence at home. Therapy Discharge Recommendati: Home & Family, Post Acute PT Time/GCodes Time In: 1545 Time Out: 1625 Total Billed Treatment Time: 30 Total Billed Treatment 1 visit EVM 10' FA 20' PT eval from [id number], OT eval from [id number], co-treat from [id number] SHIV HERNANDEZ PT Mar 09, 2020 16:21
--- NOTE | 2020-03-09 16:22 | Occupational Therapy Eval ---
OT Evaluation-General/PLF Medical Diagnosis Admission Date Medical Diagnosis: CVA Onset Date: Mar 06, 2020 Therapy Diagnosis Therapy Diagnosis: decreased ADL status, impaired functional mobiltiy Precautions Precautions/Isolations: Fall Prevention, Standard Precautions Weight Bear Status Weight Bearing Restriction: Weight Bearing/Tolerated Referral Physician: Trenton Barry Reason: Evaluation/Treatment Medical History Pertinent Medical History: HTN Additional Medical History Vertigo, pacemaker, dyslipidemia Social History Home: Single Level Current Living Status: Spouse ADL-Prior Level of Function SCALE: Activities may be completed with or without assistive devices. 8-Ulgjmnokgg-jaljgxx completes the activity by him/herself with no assistance from a helper. 5-Set-up or Clean-up Assistance-helper sets up or cleans up; patient completes activity. [place] assists only prior to or following the activity. 4-Supervision or Touching Assistance-helper provides verbal cues and/or touching/steadying and/or contact guard assistance as patient completes activity. Assistance may be provided throughout the activity or intermittently. 3-Partial/Moderate Assistance-helper does LESS THAN HALF the effort. [place] lifts, holds or supports trunk or limbs, but provides less than half the effort. 2-Substantial/Maximal Assistance-helper does MORE THAN HALF the effort. [place] lifts or holds trunk or limbs and provides more than half the effort. 3-Mjubabwps-dursdz does ALL the effort. Patient does none of the effort to complete the activity. Or, the assistance of 2 or more helpers is required for the patient to complete the activity. If activity was not attempted, code reason: 7-Patient Refused. 9-Not Applicable-not attempted and the patient did not perform the activity before the current illness, exacerbation or injury. 10-Not Attempted due to Environmental Limitations-(lack of equipment, weather restraints, etc.). 88-Not Attempted due to Medical Conditions or Safety Concerns. ADL PLOF Comments Pt independent with all I/ADLS at PLOF and functional mobility without AD. Self Care: Independent Functional Cognition: Independent DME/Equipment: Shower OT Current Status Subjective Pt agreeable to OT evaluation and OT/PT cotreat. Mental Status/Objective Patient Orientation: Person, Place, Time, Situation Current Glasses/Contacts: Yes Hand Dominance: Right Upper Extremity ROM WFL, BUE shoulder flexion to approx 150 degrees, able to touch back of head with hands. Upper Extremity Coordination WFL Upper Extremity Sensation WFL, pt denies tingling/numbness Upper Extremity Strength grossly 5/5 MMT BUEs ADL-Treatment Eating (QC): 6 (Per clinical judgement and discussion with pt, pt independent with task.) Oral Hygiene (QC): 7 Shower/Bathe Self (QC): 7 Upper Body Dressing (QC): 7 Lower Body Dressing (QC): 3 (Min A standing balance, pt able to thread BLEs and perform pant hike.) On/Off Footwear (QC): 7 Toileting Hygiene (QC): 7 Other Treatments OT evaluation complete. OT/PT cotreat due to skill of 2 clinicians required which a rehabilitation services manager could not perform in order to coordinate UE/LEs with task, and due to pt's limitations in functional mobility and endurance. Pt completed functional transfer in/out of car simulator, over uneven surface, and up/down one step using FWW. Min A with ambulation/transfers due to ataxia. Pt took seated rest break, then propelled w/c back to his room. Pt kept one eye closed throughout tx, stating he has double vision. Pt transferred to EOB, then requests to change his pants. Pt stood to doff pants, attempted to take legs out of pants in standing requiring cue to sit, Min A with dynamic standing balance. Pt sat to thread legs, then min A in stand for pant hike. Pt transferred supine. Pt educated on rehab process and expectations, he verbalized understanding. Post tx, pt laying in bed, call light in reach and all needs met. Education OT Patient Education: Correct positioning, Modified ADL techniques, Progress toward Goal/Update tx plan, Purpose of tx/functional activities, Rehab process, Safety issues, Transfer techniques Teaching Recipient: Patient Teaching Methods: Discussion Response to Teaching: Verbalize Understanding OT Care Home Goals Mill Control Operator Goals Time Frame: Mar 19, 2020 Eating (QC): 6 Oral Hygiene (QC): 6 Toileting Hygiene (QC): 6 Shower/Bathe Self (QC): 6 Upper Body Dressing (QC): 6 Lower Body Dressing (QC): 6 On/Off Footwear (QC): 6 1=Demonstrate adherence to instructed precautions during ADL tasks. 2=Patient will verbalize/demonstrate understanding of assistive devices/modifications for ADL. 3=Patient will improve strength/tolerance for activity to enable patient to perform ADL's. OT Education/Plan Problem List/Assessment Assessment: Decreased Activ Tolerance, Impaired Funct Balance, Impaired I ADL's, Impaired Self-Care Skills Discharge Recommendations Plan/Recommendations: Continue POC Treatment Plan/Plan of Care Patient would benefit from OT for education, treatment and training to promote independence in ADL's, mobility, safety and/or upper extremity function for ADL's. Plan of Care: ADL Retraining, Functional Mobility, UE Funct Exercise/Act Treatment Duration: Mar 19, 2020 Frequency: Modified Program (IRF) (09/09) Estimated Hrs Per Day: 1.5 hours per day (1-1.5) Agreement: Yes Rehab Potential: Fair Time/GCodes Start Time: 15:55 Stop Time: 16:25 Total Time Billed (hr/min): 30 Billed Treatment Time [id number] OT evaluation, [id number] OT/PT cotreat 1, EVM (10'), FA (20') NITESH BORREGO OT Mar 09, 2020 16:22
[2020-03-09] MEDS ORDERED: chlorproMAZINE 25 MG (THORAZINE) TAB PO SCH (17:30)
[2020-03-09] MEDS: chlorproMAZINE 25 MG (THORAZINE) TAB PO PRN (17:51)
[2020-03-09] MEDS: ENOXAPARIN 40 MG/0.4 ML (LOVENOX) SYR SC SCH (18:59)
--- NOTE | 2020-03-09 19:20 | NUR ---
Bedside report received from ABBE MERINO, assume care of pt
--- NOTE | 2020-03-09 19:45 | PM&R Post Admission Assessment ---
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 Patient has a pacemaker and has a h/o chronic back pain he takes medical marijuana to manage since severe catastrophic back surgery required for infection remotely. 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 He is disabled. PLOF was independent w/o the use of AD. MRI: IMPRESSION: 1. Acute/subacute ischemia involving the left posterior aspect of the medulla oblongata. No associated hemorrhage, mass effect, or effacement of the fourth ventricle is seen. 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 Med surg HPI: Jordan Garland is a 69 year old male with PMH HTN, pacemaker, who presented with vertigo. He reports that he felt well when he went to bed last night. When he woke up this morning he kept turning to the left. He was unable to keep his balance. He reports double vision. He reports left sided facial numbness. He denies weakness. He denies speech difficulty. He denies chest pain and palpitations. He denies shortness of breath. He does not smoke cigarettes. He does not drink alcohol. He reports that he smokes marijuana daily and has a medical marijuana card for chronic back pain. Past Zgybpbn-Thjkyp-Kapokx Hx Past Med/Social Hx: Reviewed Nursing Past Med/Soc Hx, Reviewed and Corrections made Patient Social History Marrital Status: single Employed/Student: retired Alcohol Use: Occasionally Uses Drug of Choice: marijuana use daily Smoking Status: Former Smoker Immunizations Up To Date Date of Influenza Vaccine: Oct 28, 2019 Past Medical History Surgeries: Pacemaker Cardiac: Hypertension Neurological: Stroke Musculoskeletal: Chronic Back Pain Did You Recieve Any Treatments: No Prior Level of Function Bed Mobility: 6 Transfers: 6 Gait: 6 Stairs: 6 Indoor Mobility (Ambulation): Independent Stairs: Independent Self Care: Independent Functional Cognition: Independent Eatin (Per clinical judgement and discussion with pt, pt independent with task.) Oral Hygiene: 7 Shower/Bathe Self: 7 Upper Body Dressin Lower Body Dressin (Min A standing balance, pt able to thread BLEs and perform pant hike.) On/Off Footwear: 7 Toileting Hygiene: 7 PM&R Allergy/Meds/Data Review Allergies Coded Allergies: Penicillins (Verified Allergy, Unknown, 03/06/20) Home Medications Scheduled Aspirin (Aspirin EC), 325 MG PO DAILY Atorvastatin Calcium (Atorvastatin Calcium), 80 MG PO DAILY Carvedilol (Carvedilol), 6.25 MG PO BID Diltiazem HCl (Diltiazem 24Hr ER), 240 MG PO DAILY, (Reported) Lisinopril (Lisinopril), 20 MG PO DAILY@0900 Zolpidem Tartrate (Ambien), 10 MG PO HS, (Reported) Discontinued Medications Metoprolol Succinate (Metoprolol Succinate), 25 MG PO DAILY, (Reported) Current Medications Current Medications Reviewed Review of Systems Constitutional: see HPI, malaise, weakness EENTM: blurred vision, double vision, vision loss Respiratory: no symptoms reported Cardiovascular: no symptoms reported Gastrointestinal: no symptoms reported Genitourinary: no symptoms reported Musculoskeletal: back pain Skin: no symptoms reported Psychiatric/Neurological: Headache, Numbness, Paresthesia, Weakness All Other Systems Reviewed Negative Unless Noted: Yes Physical Exam Physical Exam Vital Signs Vital Signs - First Documented 03/09/20 16:15 Temp 36.9 Pulse 62 Resp 16 B/P (MAP) 126/60 (82) Pulse Ox 96 O2 Delivery Room Air Capillary Refill : Less Than 3 Seconds Height, Weight, BMI Height: '" Weight: lbs. oz. kg; 27.02 BMI Method: General Appearance: No Apparent Distress, WD/WN, Chronically ill Eyes: Bilateral Eye Normal Inspection, Bilateral Eye PERRL HEENT: PERRL/EOMI, Normal ENT Inspection, Pharynx Normal Neck: Full Range of Motion, Normal Inspection, Non Tender, Supple, Carotid Bruit Respiratory: Chest Non Tender, Lungs Clear, Normal Breath Sounds, No Accessory Muscle Use, No Respiratory Distress Cardiovascular: Regular Rate, Rhythm, No Edema, No Gallop, No JVD, No Murmur, Normal Peripheral Pulses Gastrointestinal: Normal Bowel Sounds, No Organomegaly, No Pulsatile Mass, Non Tender, Soft Back: Normal Inspection, No CVA Tenderness, No Vertebral Tenderness Extremity: Normal Capillary Refill, Normal Inspection, Normal Range of Motion, Non Tender, No Calf Tenderness, No Pedal Edema Neurologic/Psychiatric: Alert, Oriented x3, No Motor/Sensory Deficits, Normal Mood/Affect, master barber II-XII Norm as Tested, Abnormal Gait, Other (double vision) Skin: Normal Color, Warm/Dry Lymphatic: No Adenopathy PM&R Medical Assessment & Plan REHAB/MEDICAL ASSESSMENT AND PLAN: REHAB IMPAIRMENT GROUP: CVA ETIOLOGIC DIAGNOSIS: CVA The comorbidities that impact the patients function and/or functional outcome by: chronic back pain, THC use, pacemaker REHAB PLAN: The patient is being admitted to our comprehensive inpatient rehabilitation facility and can tolerate the intensity of service consisting of at least: 180 minutes of therapy a day, 5 out of 7 days a week Rehab treatment will consist of: PT OT will help regain ADL's and ambulatory skills along with fall prevention while residual from CVA improves The patient/family has a good understanding of our discharge process and will benefit from an interdisciplinary inpatient rehabilitation program. The patient has potential to make improvement and is in need of at least two of the following multidisciplinary therapies including but not limited to physical, occupational, speech, and prosthetics and orthotics. Additionally the patient will need services from respiratory, nutritional services, wound care, psychology, etc. (Customize this to each patient). Given the patients complex condition and risk of further medical complications, rehabilitation services cannot be safely or effectively provided at a lower level of care such as a nursing home facility. BARRIERS TO DISCHARGE: Lives alone ESTIMATED LOS: 10 days DISPOSITION: Home RELEVANT CHANGES SINCE PREADMISSION SCREENING: I have compared the patients medical and functional status at the time of the preadmission screening and there are: no changes PROGNOSIS: Good REHABILITATION GOALS: 1. PT OT will help regain ADL's and ambulatory skills along with fall prevention while residual from CVA improves All the above goals were reviewed with the patient and he/she is in agreement. By signing this document, I acknowledge that I have personally performed a full physical examination on this patient within 24 hours of admission to this inpatient rehabilitation facility and have determined the patient to be able to tolerate the above course of treatment at an intensive level for a reasonable period of time. I will be completing a detailed individualized Plan of Care for this patient by day #4 of the patients stay based upon the Preadmission Screen, the Post-Admission Evaluation, and the therapy evaluations. Admission Dx/Comorbidities: (1) CVA (cerebral vascular accident) ICD Codes: I63.9 - Cerebral infarction, unspecified (2) Dyslipidemia Status: Acute ICD Codes: E78.5 - Hyperlipidemia, unspecified (3) Pacemaker Status: Chronic ICD Codes: Z95.0 - Presence of cardiac pacemaker (4) HTN (hypertension) Status: Acute ICD Codes: I10 - Essential (primary) hypertension (5) Left facial numbness Status: Acute ICD Codes: R20.0 - Anesthesia of skin (6) Hypertension Status: Acute ICD Codes: I10 - Essential (primary) hypertension Assessment/Plan Assessment and Plan Assess & Plan/Chief Complaint Assessment: CVA w/diploplia and balance dysfunction residual Pacemaker HLP HTN Chronic back pain THC use Plan: IRF protocol Home meds Monitor closely KAREN LANDAVERDE DO Mar 09, 2020 19:45
[2020-03-09] MEDS ORDERED: NON-FORMULARY MEDICATION 1 EA EA (Zolpidem Tartrate (Ambien) 10 MG) PO SCH (21:00)
--- NOTE | 2020-03-09 21:10 | NUR ---
Pt refused Colace, Miralax & Senokot, b/p 98/57 Coreg held for decreased b/p
[2020-03-09] MEDS: CARVEDILOL 6.25 MG (COREG) TAB PO SCH (21:40)
[2020-03-09] MEDS: SENNA W/DOCUSATE (SENOKOT S) TABLET PO SCH (21:40)
[2020-03-09] MEDS: polyethylene glycoL POWDER 17 GM (MIRALAX) PACK PO SCH (21:40)
[2020-03-09] MEDS: DOCUSATE SODIUM 100 MG (COLACE) CAP PO SCH (21:40)
[2020-03-10] MEDS: chlorproMAZINE 25 MG (THORAZINE) TAB PO PRN ×3 (02:27→18:47)
--- NOTE | 2020-03-10 02:27 | NUR ---
c/o hiccups, Thorazine 25mg given
[2020-03-10 06:03] LABS: BASOPHILS # (AUTO) 0.1 10^3/uL (0.0-0.1); BASOPHILS % (AUTO) 1 % (0-10); EOSINOPHILS # (AUTO) 0.4 10^3/uL (0.0-0.3); EOSINOPHILS % (AUTO) 4 % (0-10); HEMATOCRIT 32 % (40-54); HEMOGLOBIN 10.6 g/dL (13.3-17.7); LYMPHOCYTES # (AUTO) 1.8 10^3/uL (1.0-4.0); LYMPHOCYTES % (AUTO) 20 % (12-44); MEAN CORPUSCULAR HEMOGLOBIN 30 pg (25-34); MEAN CORPUSCULAR HGB CONC 33 g/dL (32-36); MEAN CORPUSCULAR VOLUME 90 fL (80-99); MEAN PLATELET VOLUME 9.3 fL (9.0-12.2); MONOCYTES # (AUTO) 1.2 10^3/uL (0.0-1.0); MONOCYTES % (AUTO) 13 % (0-12); NEUTROPHILS # (AUTO) 5.6 10^3/uL (1.8-7.8); NEUTROPHILS % (AUTO) 62 % (42-75); PLATELET COUNT 188 10^3/uL (130-400)
[2020-03-10 06:16] LABS: ALBUMIN 3.2 GM/DL (3.2-4.5); POTASSIUM 4.1 MMOL/L (3.6-5.0)
[2020-03-10 06:17] LABS: CALCIUM 8.3 MG/DL (8.5-10.1)
[2020-03-10 06:19] LABS: TOTAL PROTEIN 5.6 GM/DL (6.4-8.2)
[2020-03-10 06:20] LABS: BILIRUBIN,TOTAL 0.6 MG/DL (0.1-1.0)
[2020-03-10 06:21] VITALS: BP 122/63
[2020-03-10 06:22] LABS: CREATININE SERUM 1.79 MG/DL (0.60-1.30)
[2020-03-10 08:22] VITALS: BP 96/54
[2020-03-10] MEDS: ASPIRIN E.C. 325 MG (ECOTRIN) TABLET PO SCH (08:23)
--- NOTE | 2020-03-10 08:50 | PM&R Progress Note ---
Subjective HPI/CC On Admission Date Seen by Provider: Mar 10, 2020 Time Seen by Provider: 09:00 Subjective/Events-last exam 03/10/20: Thorazine is helping the hiccups BP was quite a bit lower this morning, held all of his meds, cardiology was consulted and he did have an episode of severe balance issues His BP was 89/41 , will give a liter of normal saline bolus and 100 CCs per hour He really hasnt been drinking a lot Appreciate cardiology consult Review of Systems General: Fatigue, Malaise Neurological: Weakness, Incoordination Objective Exam Vital Signs Vital Signs Date Time Temp Pulse Resp B/P (MAP) Pulse Ox O2 Delivery O2 Flow Rate FiO2 03/10/20 20:20 Room Air 03/10/20 18:07 37.3 74 20 138/72 (94) 94 Capillary Refill : Less Than 3 Seconds General Appearance: No Apparent Distress, WD/WN, Chronically ill HEENT: PERRL/EOMI, Normal ENT Inspection, Pharynx Normal Neck: Full Range of Motion, Normal Inspection, Non Tender, Supple, Carotid Bruit Respiratory: Chest Non Tender, Lungs Clear, Normal Breath Sounds, No Accessory Muscle Use, No Respiratory Distress Cardiovascular: Regular Rate, Rhythm, No Edema, No Gallop, No JVD, No Murmur, Normal Peripheral Pulses Gastrointestinal: Normal Bowel Sounds, No Organomegaly, No Pulsatile Mass, Non Tender, Soft Back: Normal Inspection, No CVA Tenderness, No Vertebral Tenderness Extremity: Normal Capillary Refill, Normal Inspection, Normal Range of Motion, Non Tender, No Calf Tenderness, No Pedal Edema Neurologic/Psychiatric: Alert, Oriented x3, No Motor/Sensory Deficits, Normal Mood/Affect, 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 FIM Transfers Therapy Code Descriptions/Definitions Functional [place] Measure: 0=Not Assessed/NA 4=Minimal Assistance 1=Total Assistance 5=Supervision or Setup 2=Maximal Assistance 6=Modified [place] 3=Moderate Assistance 7=Complete IndependenceSCALE: Activities may be completed with or without assistive devices. 1-Emsyhxoygc-prbxhst completes the activity by him/herself with no assistance from a helper. 5-Set-up or Clean-up Assistance-helper sets up or cleans up; patient completes activity. [place] assists only prior to or following the activity. 4-Supervision or Touching Assistance-helper provides verbal cues and/or touching/steadying and/or contact guard assistance as patient completes activity . Assistance may be provided throughout the activity or intermittently. 3-Partial/Moderate Assistance-helper does LESS THAN HALF the effort. [place] lifts, holds or supports trunk or limbs, but provides less than half the effort. 2-Substantial/Maximal Assistance-helper does MORE THAN HALF the effort. [place] lifts or holds trunk or limbs and provides more than half the effort. 6-Lmoojbqty-obymdm does ALL the effort. Patient does none of the effort to complete the activity. Or, the assistance of 2 or more helpers is required for the patient to complete the activity. If activity was not attempted, code reason: 7-Patient Refused. 9-Not Applicable-not attempted and the patient did not perform the activity before the current illness, exacerbation or injury. 10-Not Attempted due to Environmental Limitations-(lack of equipment, weather restraints, etc.). 88-Not Attempted due to Medical Conditions or Safety Concerns. Roll Left to Right (QC): 6 Sit to Lying (QC): 6 Sit to Stand (QC): 4 Chair/Ici-rj-Dtybz Xfer(QC): 3 Car Transfer (QC): 3 Gait Training Does the Patient Walk?: Yes Walk 10 feet (QC): 3 Walk 50 ft with 2 Turns(QC): 3 Walk 150 ft (QC): 88 Walking 10ft/uneven surface-QC: 3 Gait Assistive Device: FWW Wheelchair Training Does the Pt Use a Wheelchair?: Yes Wheel 50 ft with 2 turns (QC): 4 Wheel 150 ft (QC): 88 Type of Wheelchair: Manual Stair Training 1 Step (curb) (QC): 3 4 Steps (QC): 88 12 Steps (QC): 88 Balance Picking up an Object (QC): 88 ADL-Treatment Eating (QC): 6 (Per clinical judgement and discussion with pt, pt independent with task.) Oral Hygiene (QC): 7 Shower/Bathe Self (QC): 7 Upper Body Dressing (QC): 7 Lower Body Dressing (QC): 3 (Min A standing balance, pt able to thread BLEs and perform pant hike.) On/Off Footwear (QC): 7 Toileting Hygiene (QC): 7 Assessment/Plan Assessment and Plan Assess & Plan/Chief Complaint Assessment: CVA w/diploplia and balance dysfunction residual Pacemaker HLP HTN Chronic back pain THC use Plan: IRF protocol Home meds Monitor closely 03/10/20: IVF bolus Increase PO intake Monitor BP closely (1) CVA (cerebral vascular accident) (2) Dyslipidemia Status: Acute (3) Pacemaker Status: Chronic (4) HTN (hypertension) Status: Acute (5) Left facial numbness Status: Acute (6) Hypertension Status: Acute KAREN LANDAVERDE DO Mar 10, 2020 08:50
[2020-03-10] MEDS ORDERED: lisINopril 20 MG (PRINIVIL) TABLET PO SCH (09:00)
--- NOTE | 2020-03-10 09:30 | NUR ---
CM/SS ADMISSION and PATIENT CARE CONFERENCE Patient was admitted to ARU 03/09/20 from AV internally for CVA. He first presented to [facility] and was transferred for tertiary care via EMS to [facility]. Patient resides at home with his , Brenda Garland, and intends to return there as soon as able. PCP: Dr. Immanuel Lares, DO [facility], [facility] PH: [phone] FX: [phone] PHARMACY: [facility] [facility] INSURANCE: [employer] DME: 4WW with seat and shower chair borrowed from his sister. Brenda checked at [facility] and they have only older and heavy wheelchairs. Anticipate patient will need a wheelchair at discharge and new home O2. BARRIERS TO DISCHARGE PLANNING: Patient has [employer] Medicare replacement which may limit resource access to network providers. Spouse has been very available and communicative, supportive of patient. They have two children in same town as well who do work time clock mechanic but would seem to make availability intermittently if it was needed. CONTACTS: Brenda Garland, Spouse [address] [place] [address] Cayla Bernstein, Daughter (RT at [employer] for 28 years) [place] [address] Lucho Garland, Son ([facility], [facility], 25 years) [place] [address] Patient and his spouse understood the purpose and process of the weekly patient care conference. Patient was reviewed today with next review March 17.
--- NOTE | 2020-03-10 09:35 | Cardiology Progress Note ---
Subjective Date Seen by Provider: Mar 10, 2020 Time Seen by Provider: 09:33 Subjective/Events-last exam Patient is bed, currently having hiccups. Reports ongoing dizziness. Denies any chest pain Review of Systems General: No Chills, No Night Sweats, No Fatigue, No Malaise, No Appetite, No Other HEENT: No Head Aches, No Visual Changes, No Eye Pain, No Ear Pain, No Dy sphasia, No Sinus Congestion, No Post Nasal Drip, No Sore Throat, No Other Pulmonary: No Dyspnea, No Cough, No Pleuritic Chest Pain, No Other Cardiovascular: No: Chest Pain, Palpitations, Orthopnea, Paroxysmal Noc. Dyspnea, Edema, Lt Headedness, Other Objective-Cardiology Exam Last Set of Vital Signs Vital Signs 03/10/20 03/10/20 06:21 08:22 Temp 37.2 Pulse 78 Resp 18 B/P (MAP) 96/54 (68) Pulse Ox 93 O2 Delivery Room Air Capillary Refill : Less Than 3 Seconds I&O Intake and Output 03/10/20 00:00 Intake Total 250 ml Output Total 200 ml Balance 50 ml Intake Oral 250 ml Output Urine Total 200 ml Daily Weight Change No No General: Alert, Oriented X3, Cooperative HEENT: Atraumatic, PERRLA Neck: Supple, No JVD, No Thyromegaly Lungs: Clear to Auscultation, Normal Air Movement Heart: Regular Rate, Normal S1, Normal S2, No Murmurs Abdomen: Normal Bowel Sounds, Soft, No Tenderness, No Hepatosplenomegaly, No Masses Extremities: No Clubbing, No Cyanosis, No Edema, Normal Pulses, No Tenderness/Swelling Skin: No Rashes, No Significant Lesion Neuro: Normal Speech Psych/Mental Status: Mental Status NL, Mood NL Results Lab Laboratory Tests 03/10/20 05:45 A/P-Cardiology Admission Diagnosis CVA SSS/PPM HTN HLP Assessment/Plan Acute CVA with left sided facial numbness and gait instability. Carotid duplex WNL. dual chamber PPM interogation shows no AF episodes. Echocardiogram reveals normal LVEF. MRI of the head showed acute/subacute ischemia involving the left posterior aspect of the medulla oblongata. Continue on aspirin. Continue with PT and OT SSS/PPM- [employer], MRI safe. Follows with Dr. Chacon. Interrogation done showing no episode of AF Persistent hiccups post CVA, treated with Thorazine Hyperlipidemia, started on Lipitor. Continue to monitor HTN, currently hypotensive. I will hold BP meds this morning, continue to monitor. Patient was seen and evaluated with Aurea, examination performed, management plan was discussed, agree with the current scribed note, I made few changes to the note using Italic font Patient was seen and evaluated, laying down comfortably, having some improvement in his slurred speech Continue on current treatment, continue to monitor blood pressure lipids, no changes are recommended AUREA FITZPATRICK Mar 10, 2020 09:35 BENNY LLANES MD Mar 10, 2020 15:38
[2020-03-10] MEDS: DOCUSATE SODIUM 100 MG (COLACE) CAP PO SCH ×2 (09:49→22:06)
[2020-03-10] MEDS: polyethylene glycoL POWDER 17 GM (MIRALAX) PACK PO SCH ×2 (09:49→22:07)
[2020-03-10] MEDS: CARVEDILOL 6.25 MG (COREG) TAB PO SCH ×2 (09:49→20:49)
[2020-03-10] MEDS: SENNA W/DOCUSATE (SENOKOT S) TABLET PO SCH ×2 (09:49→22:07)
--- NOTE | 2020-03-10 10:25 | Occupational Ther Daily Note ---
OT Current Status-Daily Note Subjective Pt alert, sitting in recliner. Pt stated that his BP was low, nrsg aware and physician holding BP meds at this time. Pt agrees to therapy. No c/o pain at this time. Pt having hiccups intermittently during session. Placed eye patch on L eye to decrease double vision, educated pt on switching eyes every 2 hours. Mental Status/Objective Patient Orientation: Person, Place, Time, Situation Attachments: IV (midline) ADL-Treatment Pt agrees to shower. Pt transferred from recliner to w/c and propelled self in chair. Close SBA to transfer to shower and required min A to transfer out of shower due to knees buckling. Pt educated on set up of shower then pt able to adjust water and manipulate hand held shower. SBA to complete shower, pt leaned side to side to cleanse buttocks. Pt educated on figure 4 position to dry own feet. After set up, pt able to doff/don socks, shoes and shirt by self. After set up, pt able to don/doff lower body clothing, close SBA in standing to hike pants over hips. Pt propelled w/c to sit at sink and complete oral care and grooming. Therapy Code Descriptions/Definitions Functional [place] Measure: 0=Not Assessed/NA 4=Minimal Assistance 1=Total Assistance 5=Supervision or Setup 2=Maximal Assistance 6=Modified [place] 3=Moderate Assistance 7=Complete IndependenceSCALE: Activities may be completed with or without assistive devices. 0-Zkcaxhozsp-ncykeay completes the activity by him/herself with no assistance from a helper. 5-Set-up or Clean-up Assistance-helper sets up or cleans up; patient completes activity. [place] assists only prior to or following the activity. 4-Supervision or Touching Assistance-helper provides verbal cues and/or touching/steadying and/or contact guard assistance as patient completes activity. Assistance may be provided throughout the activity or intermittently. 3-Partial/Moderate Assistance-helper does LESS THAN HALF the effort. [place] lifts, holds or supports trunk or limbs, but provides less than half the effort. 2-Substantial/Maximal Assistance-helper does MORE THAN HALF the effort. [place] lifts or holds trunk or limbs and provides more than half the effort. 7-Taurkcryo-xagrmy does ALL the effort. Patient does none of the effort to complete the activity. Or, the assistance of 2 or more helpers is required for the patient to complete the activity. If activity was not attempted, code reason: 7-Patient Refused. 9-Not Applicable-not attempted and the patient did not perform the activity before the current illness, exacerbation or injury. 10-Not Attempted due to Environmental Limitations-(lack of equipment, weather restraints, etc.). 88-Not Attempted due to Medical Conditions or Safety Concerns. Oral Hygiene (QC): 6 Shower/Bathe Self (QC): 4 Upper Body Dressing (QC): 5 Lower Body Dressing (QC): 4 On/Off Footwear: 5 Other Treatment Pt propelled w/c to therapy gym. Completed arm bike to increase strength and activity tolerance for daily functional tasks. Pt set up for 12 min at minimal resistance, multiple breaks taken throughout task. After session, pt lying in bed with call light/phone in reach. All needs met in room. OT Snf Goals Snf Goals Time Frame: Mar 19, 2020 Eating (QC): 6 Oral Hygiene (QC): 6 Toileting Hygiene (QC): 6 Shower/Bathe Self (QC): 6 Upper Body Dressing (QC): 6 Lower Body Dressing (QC): 6 On/Off Footwear (QC): 6 1=Demonstrate adherence to instructed precautions during ADL tasks. 2=Patient will verbalize/demonstrate understanding of assistive devices/modifications for ADL. 3=Patient will improve strength/tolerance for activity to enable patient to perform ADL's. OT Education/Plan Problem List/Assessment Assessment: Decreased Activ Tolerance, Decreased Safety Aware, Decreased UE Strength, Impaired Coordination, Impaired Funct Balance, Impaired Self-Care Skills Discharge Recommendations Plan/Recommendations: Continue POC Treatment Plan/Plan of Care Patient would benefit from OT for education, treatment and training to promote independence in ADL's, mobility, safety and/or upper extremity function for ADL's. Plan of Care: ADL Retraining, Functional Mobility, UE Funct Exercise/Act Treatment Duration: Mar 19, 2020 Frequency: At least 5 of 7 days/Wk (IRF) Estimated Hrs Per Day: 1.5 hours per day Agreement: Yes Rehab Potential: Fair Time/GCodes Start Time: 09:00 Stop Time: 10:15 Total Time Billed (hr/min): 75 Billed Treatment Time 1 visit-ADL 4 (60 min) EX 1 (15 min) YULIA OROZCO Mar 10, 2020 10:25
--- NOTE | 2020-03-10 10:41 | Progress Note ---
VASQUEZ JEFFREY MED STUDENT 03/10/20 1041: Progress Note Jordan Garland is a 69yo male who presented with CVA symptoms on 03/06/20. He reported significant loss in balance, diplopia, and left sided facial numbness. Since sunday, he has seen some minor improvements in his symptoms, but he remains unable to ambulate without assistance and has diplopia when opening both eyes. The patients peripheral sensation is intact and muscle strength is 5/5 in all extremities. Finger to nose testing was normal as long as he was able to shut one eye, as he struggles to locate the position of the finger without closing an eye. Patients balance is severely hindered and both at rest and standing; he tends to drift to his left side. Pt experiences "lightheadedness" when he stands. His diminished balance is very evident when the patient is standing and closes his eyes as he requires assistance to not fall with his leftward drift. Pt reports no difficulty with smell, swallowing, or speaking. Pt is comfortable when sitting or lying at rest, and the majority of his symptoms occur while standing or opening both eyes at once. Cranial nerve testing were as follows: CN1 - smell intact CN2 - vision intact bilaterally, but diplopia present CN3/4/6 - intact ocular movement bilaterally CN5 - facial sensation intact, but reduced on left side CN7 - facial muscle strength 5/5 bilaterally CN8 - hearing normal bilaterally CN9 - no dysphagia, eating and drinking well CN10 - uvula no deviation CN11 - shoulder strength 5/5 bilaterally CN12 - tongue strength/movement intact CATHI LANDAVERDE DO 03/11/20 0529: Supervisory-Addendum Brief Verification & Attestation Participated in pt care: history, MDM, physical Personally performed: exam, history, MDM, supervision of care Care discussed with: Medical Student Procedures: n/a Results interpretation: Verified all documentation Verification and Attestation of Medical Student E/M Service A medical student performed and documented this service in my presence. I reviewed and verified all information documented by the medical student and made modifications to such information, when appropriate. I personally performed the physical exam and medical decision making. Cathi Landaverde, Mar 11, 2020,05:28 VASQUEZ JEFFREY MED STUDENT Mar 10, 2020 10:41 CATHI LANDAVERDE DO Mar 11, 2020 05:29
[2020-03-10] MEDS ORDERED: NS IV 1000 ML 1,000 ML IV STA (11:27)
--- NOTE | 2020-03-10 13:52 | ST Cognitive Linguistic Eval ---
Speech Evaluation-General Medical Diagnosis CVA Onset Date: Mar 06, 2020 Therapy Diagnosis Therapy Diagnosis: Cognitive-communication Referral Referring Physician: Dr. Chowdhury Medical History Pertinent Medical History: HTN Reviewed History: Yes Social History Current Living Status: Spouse Speech PLF-Current Status Prior Level of Function Patient lived at home with his where he was independent for much of his daily needs. Subjective Patient was pleasant and cooperative with the cognitive assessment. Language Eval: Auditory Comprehends Simple Yes/No Ques: Functional Indent/Objects [place]: Functional Ident/Pics in [place]: Functional Follows 1-Step Commands: Functional Follows Complex Directions: Functional Follows General Conversations: Functional Language Eval: Verbal Language Completes Spontaneous Greeting: Functional Produces Auto, Serial Info: Functional Imitates Simple Words/Phrases: Functional Word Finding: Functional Requests Basic Needs: Functional States Basic Personal Info: Functional Expresses Complex Ideas: Functional Objective Cognitive Domain Attention: WNL Memory: WNL Problem Solving: Functional Executive Functions: WNL Visuospatial Skills: WNL Composite Severity Rating: WNL Clock Drawing Severity Rating: WNL Objective Formal/Standardized Tests [facility] Status ([facility]) Results 28/30, within normal range of function Oral Motor/Speech Production Within Normal Limits Impression Patient is a pleasant 69 y/o male who was evaluated due to CVA. Patient was given the UMS with a score of 28/30. This score is within the normal range of function. Patient demo ability to communicate effectively and understands language/requests without difficulty. Patient does not require further ST services at this time. Speech Patient Assess Expression of Ideas/Wants: Expression (4) Understanding Verbal Content: Understands (4) Brief Interview-Mental Status: Yes Repetition of Three Words: Three (3) Temporal Orientation: Year: Correct (3) Temporal Orientation: Month: Accurate within 5 days(2) Temporal Orientation: Day: Correct (1) Recall : Wear to say "Sock": Yes, no cue required (2) Recall : Color: Yes, no cue required (2) Recall : Bed: Yes,after cueing (1) Memory/Recall Ability: Current season, Staff names and faces, That he or she is in a hsp/hsp unit Speech-Plan Patient/Family Goals Patient/Family Goals: Patient plans on returning to his home where he lives with his . Treatment Plan Speech Therapy Treatment Plan: Discontinue ST Treatment Duration: Mar 10, 2020 Frequency: 1 time per week Estimated Hrs Per Day: .5 hour per day Rehab Potential: Fair Barriers to Learning: Patient's recent CVA, however he does not exhibit cognitive deficits Pt/Family Agrees to Plan: Yes Safety Risks/Education Teaching Recipient: Patient Teaching Methods: Discussion Response to Teaching: Verbalize Understanding Education Topics Provided: Safety within his room, communication of wants/needs Time Speech Therapy Time In: 08:30 Speech Therapy Time Out: 09:00 Total Billed Time: 30 Billed Treatment Time 1, VICTOR MANUEL Burroughs Mar 10, 2020 13:52
--- NOTE | 2020-03-10 14:23 | Physical Therapy Daily Note ---
PT Daily Note-Current Subjective Pt in bed, without c/o initially. Upon attempted activity, Pt much more off balance than previously noted. Pt reports he feels more unsteady as compared to yesterday as well. Denied feeling lightheaded but did report "My blood pressure was pretty low, wonder if that's it". PT concerns relayed to nursing/doctor. Pain Numeric Pain Scale: 0-No Pain Mental Status Patient Orientation: Person, Place, Time, Situation Transfers SCALE: Activities may be completed with or without assistive devices. 8-Ckepnjwllu-zpcbzms completes the activity by him/herself with no assistance from a helper. 5-Set-up or Clean-up Assistance-helper sets up or cleans up; patient completes activity. [place] assists only prior to or following the activity. 4-Supervision or Touching Assistance-helper provides verbal cues and/or touching/steadying and/or contact guard assistance as patient completes activity. Assistance may be provided throughout the activity or intermittently. 3-Partial/Moderate Assistance-helper does LESS THAN HALF the effort. [place] lifts, holds or supports trunk or limbs, but provides less than half the effort. 2-Substantial/Maximal Assistance-helper does MORE THAN HALF the effort. [place] lifts or holds trunk or limbs and provides more than half the effort. 5-Drlstrdja-thjrrr does ALL the effort. Patient does none of the effort to comp lete the activity. Or, the assistance of 2 or more helpers is required for the patient to complete the activity. If activity was not attempted, code reason: 7-Patient Refused. 9-Not Applicable-not attempted and the patient did not perform the activity before the current illness, exacerbation or injury. 10-Not Attempted due to Environmental Limitations-(lack of equipment, weather restraints, etc.). 88-Not Attempted due to Medical Conditions or Safety Concerns. Roll Left & Right (QC): 6 Sit to Lying (QC): 6 Lying to Sitting/Side of Bed(Q: 5 Sit to Stand (QC): 3 Chair/Ilc-fk-Esbrm Xfer(QC): 3 Toilet Transfer (QC): 3 Upon sitting EOB, Pt able to (I) don (R) shoe, including tying the laces. Able to don (L) shoe but fell over to his (L) side when attempting to tie it. Upon standing, Pt leaning heavily to (L). Initially able to correct with VCS but with turning Pt would lean heavily to (L) with no righting reactions present. Toilet transfer with mod a x 1. Pt again leaning to the (L), against the wall, when attempting to stand from the toilet. Weight Bearing Right Lower Extremity: Right Full Weight Bearing Left Lower Extremity: Left Full Weight Bearing Gait Training Does the Patient Walk?: Yes Distance: 10 Walk 10 feet (QC): 2 Walk 50 ft with 2 Turns(QC): 88 Walk 150 ft (QC): 88 Walking 10ft/uneven surface-QC: 88 Gait Persons Needed: 2 Gait Assistive Device: FWW Gait very ataxic, variable step length, narrow base of support. Leaning heavily to (L) with LOB that required max A x 1 to correct upon every attempted turn. BP assessed after gait: 84/61, nursing and doctor aware Wheelchair Training Does the Pt Use a Wheelchair?: No Treatments Transfer, gait training with FWW. Treatment terminated due to low BP, nursing pl acing IV line for fluids. BP 100/55 after return to supine position. Assessment Current Status: Poor Progress Pt more unsteady, unsafe and requiring significantly higher level of assist this date. Continue to monitor BP and response to fluids, increasing activity as tolerated. PT Short Term Goals Short Term Goals Time Frame: Mar 16, 2020 Roll Left & Right: 6 Sit to lyin Lying to sitting on side of be: 6 Sit to stand: 4 Chair/tjb-nk-oelmy transfer: 4 Walk 10 feet: 4 Walk 50 feet with two turns: 4 Walk 150 feet: 4 PT Nursing Home Goals Intramural Director Goals PT Nursing Home Goals Time Frame: Mar 30, 2020 Roll Left & Right (QC): 6 Sit to Lying (QC): 6 Lying-Sitting on Side/Bed(QC): 6 Sit to Stand (QC): 4 (SBA) Chair/Pvz-xz-Evvop Xfer(QC): 4 (SBA) Toilet Transfer (QC): 4 (SBA) Car Transfer (QC): 4 (SBA) Does the Patient Walk: Yes Walk 10 feet (QC): 4 (SBA) Walk 50ft with 2 Turns (QC): 4 (SBA) Walk 150 ft (QC): 4 (SBA) Walking 10ft on Uneven Surface: 4 (CGA) 1 Step (curb) (QC): 4 (CGA) 4 Steps (QC): 4 (CGA) 12 Steps (QC): 88 Picking up an Object (QC): 4 (CGA) Wheel 50 feet with 2 turns (QC: 6 Wheel 150 feet: 6 PT Plan Problem List Problem List: Activity Tolerance, Functional Strength, Safety, Balance, Gait, Transfer, Bed Mobility Treatment/Plan Treatment Plan: Continue Plan of Care Treatment Plan: Bed Mobility, Education, Functional Activity Patria, Functional Strength, Group Therapy, Gait, Safety, Therapeutic Exercise, Transfers Treatment Duration: Mar 30, 2020 Frequency: At least 5 of 7 days/Wk (IRF) Estimated Hrs Per Day: 1.5 hours per day Patient and/or Family Agrees t: Yes Time/GCodes Time In: 1100 Time Out: 1145 Total Billed Treatment Time: 45 Total Billed Treatment 1, FA x 45' JANNET BURGER DPJose Mar 10, 2020 14:23
--- NOTE | 2020-03-10 14:45 | Occupational Ther Daily Note ---
OT Current Status-Daily Note Subjective Pt alert, lying in bed. Pt states that he is feeling better. Nrsg reported that with a bolus/fluids pt's BP has came up. Mental Status/Objective Patient Orientation: Person, Place, Time, Situation Attachments: IV ADL-Treatment Therapy Code Descriptions/Definitions Functional [place] Measure: 0=Not Assessed/NA 4=Minimal Assistance 1=Total Assistance 5=Supervision or Setup 2=Maximal Assistance 6=Modified [place] 3=Moderate Assistance 7=Complete IndependenceSCALE: Activities may be completed with or without assistive devices. 7-Nbiajcslbx-teqkxwp completes the activity by him/herself with no assistance from a helper. 5-Set-up or Clean-up Assistance-helper sets up or cleans up; patient completes activity. [place] assists only prior to or following the activity. 4-Supervision or Touching Assistance-helper provides verbal cues and/or touching/steadying and/or contact guard assistance as patient completes activity. Assistance may be provided throughout the activity or intermittently. 3-Partial/Moderate Assistance-helper does LESS THAN HALF the effort. [place] lifts, holds or supports trunk or limbs, but provides less than half the effort. 2-Substantial/Maximal Assistance-helper does MORE THAN HALF the effort. [place] lifts or holds trunk or limbs and provides more than half the effort. 8-Nfklqyygh-nokasm does ALL the effort. Patient does none of the effort to complete the activity. Or, the assistance of 2 or more helpers is required for the patient to complete the activity. If activity was not attempted, code reason: 7-Patient Refused. 9-Not Applicable-not attempted and the patient did not perform the activity before the current illness, exacerbation or injury. 10-Not Attempted due to Environmental Limitations-(lack of equipment, weather restraints, etc.). 88-Not Attempted due to Medical Conditions or Safety Concerns. Other Treatment Medium resistance theraband with HEP given to pt to use in room. Skilled instruction for technique and modifications required for proper positioning. Pt able to demonstrated understanding of how to use theraband and only needed minimal verbal cues after initial instruction. Pt's IV became occluded with arm bent exercises, stopped bent arm exercises and continued with only straight arm exercises. Pt able to complete 4 exercises 10 reps 3 sets. Pt sitting EOB to complete exercises, initially needed recovery breaks in sitting then prison through exercises pt needed to lay in supine to allow dizziness to subside. Pt finished rest of exercises in supine and did not have any more dizziness. Pt then demonstrated ability to complete all bed mobility independently. After session, pt lying in bed with call light/phone in reach. All needs met in room. OT Longterm Goals Longterm Goals Time Frame: Mar 19, 2020 Eating (QC): 6 Oral Hygiene (QC): 6 Toileting Hygiene (QC): 6 Shower/Bathe Self (QC): 6 Upper Body Dressing (QC): 6 Lower Body Dressing (QC): 6 On/Off Footwear (QC): 6 1=Demonstrate adherence to instructed precautions during ADL tasks. 2=Patient will verbalize/demonstrate understanding of assistive devices/mod ifications for ADL. 3=Patient will improve strength/tolerance for activity to enable patient to perform ADL's. OT Education/Plan Problem List/Assessment Assessment: Decreased Activ Tolerance, Decreased Safety Aware, Decreased UE Strength Discharge Recommendations Plan/Recommendations: Continue POC Treatment Plan/Plan of Care Patient would benefit from OT for education, treatment and training to promote independence in ADL's, mobility, safety and/or upper extremity function for ADL's. Plan of Care: ADL Retraining, Functional Mobility, UE Funct Exercise/Act Treatment Duration: Mar 19, 2020 Frequency: At least 5 of 7 days/Wk (IRF) Estimated Hrs Per Day: 1.5 hours per day Agreement: Yes Rehab Potential: Fair Time/GCodes Start Time: 14:10 Stop Time: 14:50 Total Time Billed (hr/min): 40 Billed Treatment Time 1 visit-EX 3 (40 min) FA 1 (10 min) YULIA OROZCO Mar 10, 2020 14:45
--- NOTE | 2020-03-10 15:32 | NUR ---
"RD ASSESSMENT PMHx: HTN; stroke; PT INTERACTION: Pt was awake and pleasant during dietary consult for MST score. Pt states current appetite is good, but that he is a light eater at home. Note avg PO intake 75% x2meal, per chart review. Pt states following a regular diet at home, and has no issues with chewing/swallowing food. Pt states some recent issues with nausea and vomiting, and that his last BM was 03/09. Note pt currently on bowel regimen of colace BID, senna BID, and miralax BID, per chart review. Pt states no recent wt changes. Note unable to determine recent wt hx, per chart review. Upon visual assessment, pt looks adequately nourished with no visible muscle/fat wasting and a BMI of 27.0 (Overweight BMI for age). Given wt hx, PO intake, and visual assessment, pt does not meet criteria for malnutrition per ASPEN guidelines. Est. kcal needs: 0893-3340 kcal | 20-25 kcal/kg Est. Pro needs: 72-90 g Pro | 0.8-1.0 g Pro/kg PES STATEMENT: Given current PO intake, no nutrition diagnosis at this time (NO-1.1). INTERVENTION: Continue with current diet order of Regular diet. Will continue to follow and reassess as pt needs, intake, and status change. Curt CARLSON MS RD LD [phone] cell"
--- NOTE | 2020-03-10 16:14 | Physical Therapy Daily Note ---
PT Daily Note-Current Subjective Pt reports that he feels lightheaded when he goes from sit to stand. Otherwise, no issues voiced. Mental Status Patient Orientation: Person, Place, Time, Situation Attachments: IV Transfers SCALE: Activities may be completed with or without assistive devices. 6-Zwmfusisfq-oiumslr completes the activity by him/herself with no assistance from a helper. 5-Set-up or Clean-up Assistance-helper sets up or cleans up; patient completes activity. [place] assists only prior to or following the activity. 4-Supervision or Touching Assistance-helper provides verbal cues and/or touching/steadying and/or contact guard assistance as patient completes activity. Assistance may be provided throughout the activity or intermittently. 3-Partial/Moderate Assistance-helper does LESS THAN HALF the effort. [place] lifts, holds or supports trunk or limbs, but provides less than half the effort. 2-Substantial/Maximal Assistance-helper does MORE THAN HALF the effort. [place] lifts or holds trunk or limbs and provides more than half the effort. 6-Aelcvnpmv-ltblrc does ALL the effort. Patient does none of the effort to complete the activity. Or, the assistance of 2 or more helpers is required for the patient to complete the activity. If activity was not attempted, code reason: 7-Patient Refused. 9-Not Applicable-not attempted and the patient did not perform the activity b efore the current illness, exacerbation or injury. 10-Not Attempted due to Environmental Limitations-(lack of equipment, weather restraints, etc.). 88-Not Attempted due to Medical Conditions or Safety Concerns. Roll Left & Right (QC): 5 Sit to Lying (QC): 5 Lying to Sitting/Side of Bed(Q: 5 Sit to Stand (QC): 5 Weight Bearing Right Lower Extremity: Right Full Weight Bearing Left Lower Extremity: Left Full Weight Bearing Gait Training Does the Patient Walk?: No and Walking Goal IS indicated Gait Assistive Device: FWW Pt was able to stand 2x for 1 min and then for 45 seconds. He was not able to take steps due to feeling lightheaded and dizzy. Exercises Supine Ex: LE Protocol Supine Reps: 20 Seated Therapy Exercises: LE Protocol Seated Reps: 20 Standing: Marching Standing Reps: 10 No issues with supine and seated ex. Standing march was performed with very small hip flexion. Treatments Worked on transfers and deep breathing while standing due to feeling lightheaded. Assessment Current Status: Poor Progress Pt was limited to 1 min of standing and saw his blood pressure drop from 130/61mmHg while supine to 99/40mmHg while seated. Unable to attain a standing pressure due to the machine registering LOW after taking his pressure. PT Short Term Goals Short Term Goals Time Frame: Mar 16, 2020 Roll Left & Right: 6 Sit to lyin Lying to sitting on side of be: 6 Sit to stand: 4 Chair/idt-rb-cbzcu transfer: 4 Walk 10 feet: 4 Walk 50 feet with two turns: 4 Walk 150 feet: 4 PT Top Stitcher Goals Top Stitcher Goals PT Top Stitcher Goals Time Frame: Mar 30, 2020 Roll Left & Right (QC): 6 Sit to Lying (QC): 6 Lying-Sitting on Side/Bed(QC): 6 Sit to Stand (QC): 4 (SBA) Chair/Gmk-pj-Afdhw Xfer(QC): 4 (SBA) Toilet Transfer (QC): 4 (SBA) Car Transfer (QC): 4 (SBA) Does the Patient Walk: Yes Walk 10 feet (QC): 4 (SBA) Walk 50ft with 2 Turns (QC): 4 (SBA) Walk 150 ft (QC): 4 (SBA) Walking 10ft on Uneven Surface: 4 (CGA) 1 Step (curb) (QC): 4 (CGA) 4 Steps (QC): 4 (CGA) 12 Steps (QC): 88 Picking up an Object (QC): 4 (CGA) Wheel 50 feet with 2 turns (QC: 6 Wheel 150 feet: 6 PT Plan Treatment/Plan Treatment Plan: Continue Plan of Care Treatment Plan: Bed Mobility, Education, Functional Activity Patria, Functional Strength, Group Therapy, Gait, Safety, Therapeutic Exercise, Transfers Treatment Duration: Mar 30, 2020 Frequency: At least 5 of 7 days/Wk (IRF) Estimated Hrs Per Day: 1.5 hours per day Patient and/or Family Agrees t: Yes Time/GCodes Time In: 1500 Time Out: 1605 Total Billed Treatment Time: 65 Total Billed Treatment 1, ex x3 (45), fa (20) GADIEL MONAE PT Mar 10, 2020 16:14
[2020-03-10] MEDS: ENOXAPARIN 40 MG/0.4 ML (LOVENOX) SYR SC SCH (18:06)
[2020-03-10 18:07] VITALS: BP 138/72
[2020-03-10] MEDS: ZOLPIDEM 5 MG (AMBIEN) TAB PO SCH (20:49)
[2020-03-10] MEDS: NS IV 1000 ML 1,000 ML IV SCH (22:05)
[2020-03-11] MEDS: chlorproMAZINE 25 MG (THORAZINE) TAB PO PRN ×3 (01:18→17:09)
[2020-03-11 06:00] VITALS: BP 128/64
[2020-03-11] MEDS: NS IV 1000 ML 1,000 ML IV SCH ×2 (08:25→17:57)
[2020-03-11 08:28] VITALS: BP 159/71
[2020-03-11] MEDS: polyethylene glycoL POWDER 17 GM (MIRALAX) PACK PO SCH ×2 (09:00→20:36)
[2020-03-11] MEDS: SENNA W/DOCUSATE (SENOKOT S) TABLET PO SCH ×2 (09:00→20:36)
[2020-03-11] MEDS: DOCUSATE SODIUM 100 MG (COLACE) CAP PO SCH ×2 (09:00→20:36)
[2020-03-11 09:07] LABS: ALBUMIN 2.9 GM/DL (3.2-4.5); BILIRUBIN,TOTAL 0.6 MG/DL (0.1-1.0); CALCIUM 8.1 MG/DL (8.5-10.1); CREATININE SERUM 1.42 MG/DL (0.60-1.30); POTASSIUM 4.1 MMOL/L (3.6-5.0); TOTAL PROTEIN 5.2 GM/DL (6.4-8.2)
[2020-03-11 09:11] LABS: BASOPHILS % (AUTO) 1 % (0-10); EOSINOPHILS # (AUTO) 0.3 10^3/uL (0.0-0.3); EOSINOPHILS % (AUTO) 5 % (0-10); HEMATOCRIT 29 % (40-54); HEMOGLOBIN 9.9 g/dL (13.3-17.7); LYMPHOCYTES # (AUTO) 1.3 10^3/uL (1.0-4.0); LYMPHOCYTES % (AUTO) 18 % (12-44); MEAN CORPUSCULAR HEMOGLOBIN 31 pg (25-34); MEAN CORPUSCULAR HGB CONC 34 g/dL (32-36); MEAN CORPUSCULAR VOLUME 92 fL (80-99); MEAN PLATELET VOLUME 9.5 fL (9.0-12.2); MONOCYTES % (AUTO) 13 % (0-12); NEUTROPHILS # (AUTO) 4.7 10^3/uL (1.8-7.8); NEUTROPHILS % (AUTO) 64 % (42-75); PLATELET COUNT 205 10^3/uL (130-400); WHITE BLOOD COUNT 7.4 10^3/uL (4.3-11.0)
[2020-03-11] MEDS: ASPIRIN E.C. 325 MG (ECOTRIN) TABLET PO SCH (09:28)
--- NOTE | 2020-03-11 10:00 | Occupational Ther Daily Note ---
OT Current Status-Daily Note Subjective Pt alert, lying in bed. Pt agrees to therapy. Due to pt's BP issues orthostatic BP was taken-supine 158/81, pulse 71; sitting 125/69, pulse 74; standing 95/55, pulse 80; supine 164/65, pulse 80. Reported this to nrsg. Pt to complete OT session at bed level. Mental Status/Objective Patient Orientation: Person, Place, Time, Situation Attachments: IV ADL-Treatment Pt declined sponge bath or changing clothing at bed level. Pt did agree to complete oral care at bed level. ALANIZ gathered supplies for pt then pt completed oral care by self. Pt able to complete bed mobility independently. Therapy Code Descriptions/Definitions Functional [place] Measure: 0=Not Assessed/NA 4=Minimal Assistance 1=Total Assistance 5=Supervision or Setup 2=Maximal Assistance 6=Modified [place] 3=Moderate Assistance 7=Complete IndependenceSCALE: Activities may be completed with or without assistive devices. 0-Yfjnlqlkyg-zilmkcc completes the activity by him/herself with no assistance from a helper. 5-Set-up or Clean-up Assistance-helper sets up or cleans up; patient completes activity. [place] assists only prior to or following the activity. 4-Supervision or Touching Assistance-helper provides verbal cues and/or touching/steadying and/or contact guard assistance as patient completes activity. Assistance may be provided throughout the activity or intermittently. 3-Partial/Moderate Assistance-helper does LESS THAN HALF the effort. [place] lifts, holds or supports trunk or limbs, but provides less than half the effort. 2-Substantial/Maximal Assistance-helper does MORE THAN HALF the effort. [place] lifts or holds trunk or limbs and provides more than half the effort. 8-Sgrkzvumv-eosvqg does ALL the effort. Patient does none of the effort to complete the activity. Or, the assistance of 2 or more helpers is required for the patient to complete the activity. If activity was not attempted, code reason: 7-Patient Refused. 9-Not Applicable-not attempted and the patient did not perform the activity before the current illness, exacerbation or injury. 10-Not Attempted due to Environmental Limitations-(lack of equipment, weather restraints, etc.). 88-Not Attempted due to Medical Conditions or Safety Concerns. Oral Hygiene (QC): 6 Other Treatment Pt completed 5 medium resistance theraband exercises in supine due to BP issues. Pt took multiple recovery breaks with each exercise between sets. Skilled instruction given when pt required assistance to remember exercise and position. 3 sets 10 reps of each exercise. After therapy, pt lying in bed with call light/phone in reach. All needs met in room. OT Tenter Feeder Goals Group Home Goals Time Frame: Mar 19, 2020 Eating (QC): 6 Oral Hygiene (QC): 6 Toileting Hygiene (QC): 6 Shower/Bathe Self (QC): 6 Upper Body Dressing (QC): 6 Lower Body Dressing (QC): 6 On/Off Footwear (QC): 6 1=Demonstrate adherence to instructed precautions during ADL tasks. 2=Patient will verbalize/demonstrate understanding of assistive devices/modifications for ADL. 3=Patient will improve strength/tolerance for activity to enable patient to perform ADL's. OT Education/Plan Problem List/Assessment Assessment: Decreased Activ Tolerance, Impaired Funct Balance Discharge Recommendations Plan/Recommendations: Continue POC Treatment Plan/Plan of Care Patient would benefit from OT for education, treatment and training to promote independence in ADL's, mobility, safety and/or upper extremity function for ADL's. Plan of Care: ADL Retraining, Functional Mobility, UE Funct Exercise/Act Treatment Duration: Mar 19, 2020 Frequency: Modified Program (IRF) (09/09) Estimated Hrs Per Day: 1.5 hours per day (1-1.5) Agreement: Yes Rehab Potential: Fair Time/GCodes Start Time: 09:00 Stop Time: 10:00 Total Time Billed (hr/min): 60 Billed Treatment Time 1 visit-ADL 1 (20 min) FA 1 (10 min) EX 2 (30 min) YULIA OROZCO Mar 11, 2020 10:00
--- NOTE | 2020-03-11 10:31 | Individualized Plan of Care ---
Individualized Plan of Care Rehab Nursing IPOC Order Admission Date Mar 09, 2020 at 15:45 Current Orders Orders Admission Order(Inpt,Obs,Sdc) (03/09/20 15:38) Vital Signs: Per Unit Policy ( 08,16,00 (03/09/20 15:38) [employer] Promotional Sales-Inpt Rehab Con (03/09/20 15:38) Rehab Nursing Orders-Ipoc (03/09/20 15:38) Physical Therapy Rehab Orders (03/09/20 15:38) Occupational Therapy Rehab Ord (03/09/20 15:38) Speech Therapy Rehab Orders (03/09/20 15:38) Cbc With Automated Diff (03/10/20 06:00) Comprehensive Metabolic Panel (03/10/20 06:00) General/Regular (03/09/20 Dinner) Intake & Output 06,14,22 (03/09/20 15:38) Precautions (Aru) (03/09/20 15:38) Rehab-Intensity Of Therapy (03/09/20 15:38) Initiate Admission Nursing Pro .admission (03/09/20 15:38) Alprazolam Tablet (Xanax Tablet) (03/09/20 15:45) Calcium Carbonate Chew Tablet (Antacid C (03/09/20 15:45) Diphenhydramine Tablet (Benadryl Tablet) (03/09/20 15:45) Docusate Sodium Capsule (Colace Capsule) (03/09/20 21:00) Docusate Sodium Capsule (Colace Capsule) (03/09/20 15:45) Bisacodyl Suppository (Dulcolax Supposit (03/09/20 15:45) Lactulose Oral Solution (Enulose Oral So (03/09/20 15:45) Na Phos/Na Biphos Enema (Fleet Enema Juanito (03/09/20 15:45) Guaifenesin/Codeine Syrup (Robitussin Ac (03/09/20 15:45) Loperamide Tablet (Imodium Tablet) (03/09/20 15:45) Melatonin Tablet (Melatonin Tablet) (03/09/20 15:45) Polyethylene Glycol Powder Pkt (Miralax (03/09/20 21:00) Ondansetron Oral Dissolve Tab (Zofran (03/09/20 15:45) Senna S Tablet (Senokot S Tablet) (03/09/20 21:00) Sequential Compression Device Q4H (03/09/20 15:38) Initiate Admission Nursing Pro .admission (03/09/20 15:38) Admission Arrival Bed Request (03/09/20 15:45) Aspirin Enteric Coated Tablet (Ecotrin T (03/10/20 09:00) Atorvastatin Tablet (Lipitor Tablet) (03/10/20 09:00) Carvedilol Tablet (Coreg Tablet) (03/09/20 21:00) Diltiazem Cd 24 Hr Capsule (Cardizem Cd (03/10/20 09:00) Lisinopril Tablet (Zestril Tablet) (03/10/20 09:00) (Nf) Zolpidem Tartrate (Ambien) (03/09/20 21:00) Enoxaparin Injection (Lovenox Injection) (03/09/20 17:15) Chlorpromazine Tablet (Thorazine Tablet) (03/09/20 17:30) Chlorpromazine Tablet (Thorazine Tablet) (03/09/20 17:45) Zolpidem Tablet (Ambien Tablet) (03/10/20 21:00) Consult Cardiology (03/10/20 08:49) Ns Iv 1000 Ml (Sodium Chloride 0.9%) (03/10/20 11:27) Patient Visit (03/10/20 ) Functional Activities, Ea 15 (03/10/20 ) Patient Visit (03/10/20 ) Speech Sound Lang Comp (03/10/20 ) Patient Visit (03/10/20 ) Exercise Therap, Ea 15 Min (03/10/20 ) Functional Activities, Ea 15 (03/10/20 ) Ns Iv 1000 Ml (Sodium Chloride 0.9%) (03/10/20 22:00) Cbc With Automated Diff (03/11/20 08:27) Comprehensive Metabolic Panel (03/11/20 08:26) Fludrocortisone Tablet (Florinef Tablet) (03/11/20 10:45) Chest 1 View, Ap/Pa Only (03/11/20 10:35) Baclofen Tablet (Lioresal Tablet) (03/11/20 11:00) Incentive Spirometry (Nursing) Q2H (03/11/20 11:00) Rigoberto James (03/11/20 11:00) Nursing Communication (Order) (03/11/20 11:00) Carvedilol Tablet (Coreg Tablet) (03/11/20 21:00) Lisinopril Tablet (Zestril Tablet) (03/12/20 09:00) Patient Visit (03/11/20 ) Exercise Therap, Ea 15 Min (03/11/20 ) Functional Activities, Ea 15 (03/11/20 ) Patient Visit (03/11/20 ) Wheelchair Mgmt/Propulsn 15min (03/11/20 ) Exercise Therap, Ea 15 Min (03/11/20 ) Rehab Nursing Orders: Ongoing Assess. of Cognitive Status, Ongoing Assess. of Function Status, Bladder Management, Bladder Scan, Bladder Training, Bowel Management, Bowel Training, Disease Management & Educaiton, DVT Prophylaxis, Fall Prevention, Fluid/Electrolyte/Nutrition Mgmt, Infection Prevention, Medication Management & Education, Management of Risks & Complications, Management of Skin Intergrity, Nutrition Management, Pain Management, Patient/Family Support, Safety Management, Swallow Precautions Intensity of Therapy to be met Patient to be seen: Min.3h per day/5 of 7d PT IPOC Problem List: Activity Tolerance, Functional Strength, Safety, Balance, Gait, Transfer, Bed Mobility Treatment Plan: Continue Plan of Care Bed Mobility, Education, Functional Activity Patria, Functional Strength, Group T herapy, Gait, Safety, Therapeutic Exercise, Transfers Treatment Duration: Mar 30, 2020 Frequency: At least 5 of 7 days/Wk (IRF) Estimated Hrs Per Day: 1.5 hours per day OT IPOC Problems: Decreased Activ Tolerance, Impaired Funct Balance OT Treatment, Training and Edu: Yes Plan of Care: ADL Retraining, Functional Mobility, UE Funct Exercise/Act Treatment Duration: Mar 19, 2020 Frequency: Modified Program (IRF) (09/09) Estimated Hrs Per Day: 1.5 hours per day (1-1.5) ST IPOC Speech Therapy Treatment Plan: Discontinue ST Treatment Duration: Mar 10, 2020 Frequency: 1 time per week Estimated Hrs Per Day: .5 hour per day [employer] Prom[employer] Sales/Case Mgmt [employer]/Case Managemen: Discharge Planning Dietitian/Impregnator And Drier Helper Dietitian/Impregnator And Drier Helper to monitor nutritional status and make changes and/or recommendations as needed and work with speech pathology on dietary upgrades as the occur. Physician IPOC Medical Issues being managed closely and that require the 24 hour availability of a physician: Recent CVA with now orthostasis with severe balance issues will nee close monitoring of BP and manage risk of extension of CVA will require close physician observation Medical Issues: Bowel/Bladder Function, DVT Prophylaxis, Falls Precautions, Fluid/Electrolyte/Nutrition Balance, Infection Protection, Pain Management, Swallowing Precautions Brief Synthesis of Preadmission Screen, Post-Admission Evaluation, and Therapy Evaluations: PT OT will focus on regaining function of ambulatory skills while managing balance and fall risk and regaining independent ADL's Medical Prognosis: Good Anticipated Length of Stay: 10 days KAREN LANDAVERDE DO Mar 11, 2020 10:31
--- NOTE | 2020-03-11 10:31 | PM&R Progress Note ---
Subjective HPI/CC On Admission Date Seen by Provider: Mar 11, 2020 Time Seen by Provider: 10:30 Subjective/Events-last exam 03/11/20: Will HLIVF later today Florinef will be started to help with orthostasis CXR done for cough and that was normal Baclofen will be given for hiccups 03/10/20: Thorazine is helping the hiccups BP was quite a bit lower this morning, held all of his meds, cardiology was consulted and he did have an episode of severe balance issues His BP was 89/41 , will give a liter of normal saline bolus and 100 CCs per hour He really hasnt been drinking a lot Appreciate cardiology consult Review of Systems General: Malaise Neurological: Weakness, Incoordination Objective Exam Vital Signs Vital Signs Date Time Temp Pulse Resp B/P (MAP) Pulse Ox O2 Delivery O2 Flow Rate FiO2 03/11/20 21:30 Room Air 03/11/20 18:00 37.0 62 18 168/77 (107) 95 Capillary Refill : Less Than 3 Seconds General Appearance: No Apparent Distress, WD/WN, Chronically ill HEENT: PERRL/EOMI, Normal ENT Inspection, Pharynx Normal Neck: Full Range of Motion, Normal Inspection, Non Tender, Supple, Carotid Bruit Respiratory: Chest Non Tender, Lungs Clear, Normal Breath Sounds, No Accessory Muscle Use, No Respiratory Distress Cardiovascular: Regular Rate, Rhythm, No Edema, No Gallop, No JVD, No Murmur, Normal Peripheral Pulses Gastrointestinal: Normal Bowel Sounds, No Organomegaly, No Pulsatile Mass, Non Tender, Soft Back: Normal Inspection, No CVA Tenderness, No Vertebral Tenderness Extremity: Normal Capillary Refill, Normal Inspection, Normal Range of Motion, Non Tender, No Calf Tenderness, No Pedal Edema Neurologic/Psychiatric: Alert, Oriented x3, No Motor/Sensory Deficits, Normal 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 FIM Transfers Therapy Code Descriptions/Definitions Functional [place] Measure: 0=Not Assessed/NA 4=Minimal Assistance 1=Total Assistance 5=Supervision or Setup 2=Maximal Assistance 6=Modified [place] 3=Moderate Assistance 7=Complete IndependenceSCALE: Activities may be completed with or without assistive devices. 7-Byehhrghog-wtdgxjm completes the activity by him/herself with no assistance from a helper. 5-Set-up or Clean-up Assistance-helper sets up or cleans up; patient completes activity. [place] assists only prior to or following the activity. 4-Supervision or Touching Assistance-helper provides verbal cues and/or touching/steadying and/or contact guard assistance as patient completes activity. Assistance may be provided throughout the activity or intermittently. 3-Partial/Moderate Assistance-helper does LESS THAN HALF the effort. [place] lifts, holds or supports trunk or limbs, but provides less than half the effort. 2-Substantial/Maximal Assistance-helper does MORE THAN HALF the effort. [place] lifts or holds trunk or limbs and provides more than half the effort. 6-Wlsuolrox-vjwsgm does ALL the effort. Patient does none of the effort to complete the activity. Or, the assistance of 2 or more helpers is required for the patient to complete the activity. If activity was not attempted, code reason: 7-Patient Refused. 9-Not Applicable-not attempted and the patient did not perform the activity before the current illness, exacerbation or injury. 10-Not Attempted due to Environmental Limitations-(lack of equipment, weather restraints, etc.). 88-Not Attempted due to Medical Conditions or Safety Concerns. Roll Left to Right (QC): 5 Sit to Lying (QC): 5 Sit to Stand (QC): 5 Chair/Djm-oq-Uvedo Xfer(QC): 3 Car Transfer (QC): 3 Gait Training Does the Patient Walk?: No and Walking Goal IS indicated Distance: 10 Walk 10 feet (QC): 2 Walk 50 ft with 2 Turns(QC): 88 Walk 150 ft (QC): 88 Walking 10ft/uneven surface-QC: 88 Gait Persons Needed: 2 Gait Assistive Device: FWW Wheelchair Training Does the Pt Use a Wheelchair?: No Wheel 50 ft with 2 turns (QC): 4 Wheel 150 ft (QC): 88 Type of Wheelchair: Manual Stair Training 1 Step (curb) (QC): 3 4 Steps (QC): 88 12 Steps (QC): 88 Balance Picking up an Object (QC): 88 ADL-Treatment Eating (QC): 6 (Per clinical judgement and discussion with pt, pt independent with task.) Oral Hygiene (QC): 6 Shower/Bathe Self (QC): 4 Upper Body Dressing (QC): 5 Lower Body Dressing (QC): 4 On/Off Footwear (QC): 5 Toileting Hygiene (QC): 7 Assessment/Plan Assessment and Plan Assess & Plan/Chief Complaint Assessment: CVA w/diploplia and balance dysfunction residual Pacemaker HLP HTN Chronic back pain THC use Plan: IRF protocol Home meds Monitor closely 03/10/20: IVF bolus Increase PO intake Monitor BP closely 03/11/20: Baclofen for hiccups IVF then DC Florinef for orthostasis (1) CVA (cerebral vascular accident) (2) Dyslipidemia Status: Acute (3) Pacemaker Status: Chronic (4) HTN (hypertension) Status: Acute (5) Left facial numbness Status: Acute (6) Hypertension Status: Acute KAREN LANDAVERDE DO Mar 11, 2020 10:31
--- NOTE | 2020-03-11 11:13 | Cardiology Progress Note ---
Subjective Date Seen by Provider: Mar 11, 2020 Time Seen by Provider: 11:07 Subjective/Events-last exam patient is laying down in bed, no new complaint, having orthostatic hypotension Review of Systems General: No Chills, No Night Sweats, No Fatigue, No Malaise, No Appetite, No Other HEENT: No Head Aches, No Visual Changes, No Eye Pain, No Ear Pain, No Dysphasia, No Sinus Congestion, No Post Nasal Drip, No Sore Throat, No Other Pulmonary: No Dyspnea, No Cough, No Pleuritic Chest Pain, No Other Cardiovascular: No: Chest Pain, Palpitations, Orthopnea, Paroxysmal Noc. Dyspnea, Edema, Lt Headedness, Other Objective-Cardiology Exam Last Set of Vital Signs Vital Signs 03/11/20 03/11/20 03/11/20 06:00 08:28 09:00 Temp 36.5 Pulse 83 Resp 16 B/P (MAP) 159/71 (100) Pulse Ox 95 O2 Delivery Room Air Capillary Refill : Less Than 3 Seconds I&O Intake and Output 03/11/20 00:00 Intake Total 2500 ml Output Total 425 ml Balance 2075 ml Intake Oral 1500 ml IV Total 1000 ml Output Urine Total 425 ml # Voids 3 # Bowel Movements 1 General: Alert, Oriented X3, Cooperative HEENT: Atraumatic, PERRLA Neck: Supple, No JVD, No Thyromegaly Lungs: Clear to Auscultation, Normal Air Movement Heart: Regular Rate, Normal S1, Normal S2, No Murmurs Abdomen: Normal Bowel Sounds, Soft, No Tenderness, No Hepatosplenomegaly, No Masses Extremities: No Clubbing, No Cyanosis, No Edema, Normal Pulses, No Tend erness/Swelling Skin: No Rashes, No Significant Lesion Neuro: Normal Speech Psych/Mental Status: Mental Status NL, Mood NL Results Lab Laboratory Tests 03/11/20 08:41 A/P-Cardiology Admission Diagnosis CVA SSS/PPM HTN HLP Assessment/Plan Acute CVA with left sided facial numbness and gait instability. Carotid duplex WNL. dual chamber PPM interogation shows no AF episodes. Echocardiogram reveals normal LVEF. MRI of the head showed acute/subacute ischemia involving the left posterior aspect of the medulla oblongata. Continue on aspirin. Continue with PT and OT SSS/PPM- [employer], MRI safe. Follows with Dr. Chacon. Interrogation done showing no episode of AF Persistent hiccups post CVA, treated with Thorazine Hyperlipidemia, started on Lipitor. Continue to monitor Hypertension, has been having episode of hypotension and orthostatic hypotension, had significant drop in his blood pressure after standing up. will change his blood pressure medication, he is maintained on Coreg 6.25 mg twice a day which will be reduced to 3.125 mg twice a day, changed lisinopril to 10 mg daily, continue on Cardizem for now and monitor his tolerance and response. BENNY LLANES MD Mar 11, 2020 11:13
[2020-03-11] MEDS: FLUDROCORTISONE 0.1 MG (FLORINEF) TAB PO SCH (11:23)
[2020-03-11] MEDS: BACLOFEN 10 MG (LIORESAL) TAB PO SCH ×3 (11:23→20:36)
--- NOTE | 2020-03-11 11:40 | Physical Therapy Daily Note ---
PT Daily Note-Current Subjective Pt supine in bed upon arrival to room, agreeable to PT treatment in bed this date due to c/o lightheadedness with standing activities & drop in BP. Appearance Following session, pt supine in bed with call light and tray within reach. All needs met at this time. Mental Status Patient Orientation: Person, Place, Situation Attachments: IV Transfers SCALE: Activities may be completed with or without assistive devices. 8-Myoaobiixs-hwbmqco completes the activity by him/herself with no assistance from a helper. 5-Set-up or Clean-up Assistance-helper sets up or cleans up; patient completes activity. [place] assists only prior to or following the activity. 4-Supervision or Touching Assistance-helper provides verbal cues and/or touching/steadying and/or contact guard assistance as patient completes activity. Assistance may be provided throughout the activity or intermittently. 3-Partial/Moderate Assistance-helper does LESS THAN HALF the effort. [place] lifts, holds or supports trunk or limbs, but provides less than half the effort. 2-Substantial/Maximal Assistance-helper does MORE THAN HALF the effort. [place] lifts or holds trunk or limbs and provides more than half the effort. 5-Zmzrbtjoy-vxmipm does ALL the effort. Patient does none of the effort to complete the activity. Or, the assistance of 2 or more helpers is required for the patient to complete the activity. If activity was not attempted, code reason: 7-Patient Refused. 9-Not Applicable-not attempted and the patient did not perform the activity before the current illness, exacerbation or injury. 10-Not Attempted due to Environmental Limitations-(lack of equipment, weather restraints, etc.). 88-Not Attempted due to Medical Conditions or Safety Concerns. Roll Left & Right (QC): 6 Sit to Lying (QC): 6 Lying to Sitting/Side of Bed(Q: 6 Sit to Stand (QC): 5 Weight Bearing Right Lower Extremity: Right Full Weight Bearing Left Lower Extremity: Left Full Weight Bearing Exercises Supine Ex: Bridging, Ankle pumps, Quad Set, Glut sets, Heel Slides, Straight leg raise, Hip abd/add Supine Reps: 20 Treatments Pt completed 20 repetitions of all supine LE exercises. Following exercises, orthostatic BP taken reading: Supine 166/79 (76 pulse) Sitting 143/80 (77 pulse) Standing 101/65 (86 pulse) Supine 177/70 (73 pulse) Assessment Current Status: Fair Progress Session limited by drop in BP in upright position, session limited to bed exercises this date. PT Short Term Goals Short Term Goals Time Frame: Mar 16, 2020 Roll Left & Right: 6 Sit to lyin Lying to sitting on side of be: 6 Sit to stand: 4 Chair/koe-vk-exmma transfer: 4 Walk 10 feet: 4 Walk 50 feet with two turns: 4 Walk 150 feet: 4 PT Custodial Goals Custodial Goals PT Custodial Goals Time Frame: Mar 30, 2020 Roll Left & Right (QC): 6 Sit to Lying (QC): 6 Lying-Sitting on Side/Bed(QC): 6 Sit to Stand (QC): 4 (SBA) Chair/Sax-wu-Dwzkj Xfer(QC): 4 (SBA) Toilet Transfer (QC): 4 (SBA) Car Transfer (QC): 4 (SBA) Does the Patient Walk: Yes Walk 10 feet (QC): 4 (SBA) Walk 50ft with 2 Turns (QC): 4 (SBA) Walk 150 ft (QC): 4 (SBA) Walking 10ft on Uneven Surface: 4 (CGA) 1 Step (curb) (QC): 4 (CGA) 4 Steps (QC): 4 (CGA) 12 Steps (QC): 88 Picking up an Object (QC): 4 (CGA) Wheel 50 feet with 2 turns (QC: 6 Wheel 150 feet: 6 PT Plan Problem List Problem List: Activity Tolerance, Functional Strength, Safety, Balance, Gait, Transfer, Bed Mobility, ROM Treatment/Plan Treatment Plan: Continue Plan of Care Treatment Plan: Bed Mobility, Education, Functional Activity Patria, Functional Strength, Group Therapy, Gait, Safety, Therapeutic Exercise, Transfers Treatment Duration: Mar 30, 2020 Frequency: At least 5 of 7 days/Wk (IRF) Estimated Hrs Per Day: 1.5 hours per day Patient and/or Family Agrees t: Yes Time/GCodes Time In: 1000 Time Out: 1100 Total Billed Treatment Time: 60 Total Billed Treatment 1 visit EX x 3 (40') FA (20') KHANH SWEENEY PT Mar 11, 2020 11:39
--- NOTE | 2020-03-11 11:58 | Diagnostic Imaging Report ---
EXAM: Portable erect AP chest at 11:06 INDICATION: Cough The cardiomegaly and left-sided pacemaker seen on the prior exam of 03/08/2020 are again evident and no different. The left-sided pacemaker remains in place. The lungs are still generally clear and well aerated. There is no sign of failure, pneumonia or of pleural effusion. The mediastinum is not widened. The incompletely healed fracture of the right 6th rib seen previously is again evident. IMPRESSION: Stable chest. There has been no adverse change since the prior exam. Dictated by: Dictated on workstation # [id number]
--- NOTE | 2020-03-11 13:44 | Occupational Ther Daily Note ---
OT Current Status-Daily Note Subjective Pt dozing in bed, woke to name. Pt stated that he had a muscle relaxer and was tired from the medication. Agrees to therapy. Orthostatic BP-supine 126/64 pulse 65; sitting 96/63 pulse 75; unable to get standing; sitting 121/65. Mental Status/Objective Patient Orientation: Person, Place, Time, Situation Attachments: IV ADL-Treatment Pt able to don/doff socks/shoes independently sitting EOB. Bed mobility independent with HOB slightly raised. LOB with initial stand after being supin e. Transferred from EOB to w/c with CGA for safety. Therapy Code Descriptions/Definitions Functional [place] Measure: 0=Not Assessed/NA 4=Minimal Assistance 1=Total Assistance 5=Supervision or Setup 2=Maximal Assistance 6=Modified [place] 3=Moderate Assistance 7=Complete IndependenceSCALE: Activities may be completed with or without assistive devices. 9-Bovnzpiahc-xbjzqra completes the activity by him/herself with no assistance from a helper. 5-Set-up or Clean-up Assistance-helper sets up or cleans up; patient completes activity. [place] assists only prior to or following the activity. 4-Supervision or Touching Assistance-helper provides verbal cues and/or touching/steadying and/or contact guard assistance as patient completes activity. Assistance may be provided throughout the activity or intermittently. 3-Partial/Moderate Assistance-helper does LESS THAN HALF the effort. [place] lifts, holds or supports trunk or limbs, but provides less than half the effort. 2-Substantial/Maximal Assistance-helper does MORE THAN HALF the effort. [place] lifts or holds trunk or limbs and provides more than half the effort. 4-Tugzoltro-znequs does ALL the effort. Patient does none of the effort to complete the activity. Or, the assistance of 2 or more helpers is required for the patient to complete the activity. If activity was not attempted, code reason: 7-Patient Refused. 9-Not Applicable-not attempted and the patient did not perform the activity before the current illness, exacerbation or injury. 10-Not Attempted due to Environmental Limitations-(lack of equipment, weather restraints, etc.). 88-Not Attempted due to Medical Conditions or Safety Concerns. On/Off Footwear: 6 Other Treatment Co-treat with PT ([id number]), skills of 2 clinicians required for skilled care and instruction due to pt's fatigue and issues with blood pressure during mobility. PT focusing on transfers, B LE strengthening, w/c mobility and standing while OT focused on functional transfers/activities, B UE strengthening and B UE placment during mobility and standing. W/c mobility completed to monitor pt's BP, strengthen UE/LE and increase activity tolerance-156/83, pulse 84 after using arm to propel w/c; 143/78, pulse 88 after using B LE to propel w/c. Pt then propelled w/c to therapy gym to work on standing with the parallel bars. Pt's BP during standing was 103/70 first stand then 145/79 with second stand. Pt was able to complete 3 standing at parallel bars from ~1 min each without LOB when B UE holding onto bar. Pt propelled w/c back to room and SPT with CGA then completed own bed mobility in supine. After session, pt lying in bed with call light/phone in reach. Attempted to get pt to eat lunch. Pt declined, stating that he was not hungry. All needs met in room. OT Gold And Silver Assayer Goals Care Home Goals Time Frame: Mar 19, 2020 Eating (QC): 6 Oral Hygiene (QC): 6 Toileting Hygiene (QC): 6 Shower/Bathe Self (QC): 6 Upper Body Dressing (QC): 6 Lower Body Dressing (QC): 6 On/Off Footwear (QC): 6 1=Demonstrate adherence to instructed precautions during ADL tasks. 2=Patient will verbalize/demonstrate understanding of assistive devices/modifications for ADL. 3=Patient will improve strength/tolerance for activity to enable patient to perform ADL's. OT Education/Plan Problem List/Assessment Assessment: Decreased Activ Tolerance, Impaired Coordination, Impaired Funct Balance Discharge Recommendations Plan/Recommendations: Continue POC Treatment Plan/Plan of Care Patient would benefit from OT for education, treatment and training to promote independence in ADL's, mobility, safety and/or upper extremity function for ADL's. Plan of Care: ADL Retraining, Functional Mobility, UE Funct Exercise/Act Treatment Duration: Mar 19, 2020 Frequency: Modified Program (IRF) (09/09) Estimated Hrs Per Day: 1.5 hours per day (1-1.5) Agreement: Yes Rehab Potential: Fair Time/GCodes Start Time: 12:40 Stop Time: 13:45 Total Time Billed (hr/min): 65 Billed Treatment Time 1 visit-ADL 1(20 min) FA 3(45 min) co-treat with PT ([id number]), individual ([id number]) YULIA OROZCO Mar 11, 2020 13:44
--- NOTE | 2020-03-11 13:56 | Physical Therapy Daily Note ---
PT Daily Note-Current Subjective Pt up in wheelchair upon arrival to room, with OT present. Pt agreeable to PT/OT cotreat at this time. Pt denies pain during session, but reports he is "ready for a nap, that muscle relaxer really relaxed me." Appearance Following session, pt supine in bed with call light and tray within reach. All needs met at current time. Mental Status Patient Orientation: Person, Place, Situation Attachments: IV Transfers SCALE: Activities may be completed with or without assistive devices. 6-Pkvkpbeuni-ekpgqdr completes the activity by him/herself with no assistance from a helper. 5-Set-up or Clean-up Assistance-helper sets up or cleans up; patient completes activity. [place] assists only prior to or following the activity. 4-Supervision or Touching Assistance-helper provides verbal cues and/or touching/steadying and/or contact guard assistance as patient completes activity. Assistance may be provided throughout the activity or intermittently. 3-Partial/Moderate Assistance-helper does LESS THAN HALF the effort. [place] lifts, holds or supports trunk or limbs, but provides less than half the effort. 2-Substantial/Maximal Assistance-helper does MORE THAN HALF the effort. [place] lifts or holds trunk or limbs and provides more than half the effort. 9-Yrvbgxjtn-qubvic does ALL the effort. Patient does none of the effort to complete the activity. Or, the assistance of 2 or more helpers is required for the patient to complete the activity. If activity was not attempted, code reason: 7-Patient Refused. 9-Not Applicable-not attempted and the patient did not perform the activity before the current illness, exacerbation or injury. 10-Not Attempted due to Environmental Limitations-(lack of equipment, weather restraints, etc.). 88-Not Attempted due to Medical Conditions or Safety Concerns. Sit to Lying (QC): 6 Sit to Stand (QC): 5 Chair/Cnk-ry-Oacii Xfer(QC): 5 Weight Bearing Right Lower Extremity: Right Full Weight Bearing Left Lower Extremity: Left Full Weight Bearing Wheelchair Training Wheel 50 ft with 2 turns (QC): 6 Wheel 150 ft (QC): 6 WCH training due to pts hypotension in standing. Pt able to navigate angeline with only LEs x 200' only UEs x 150' and use of both UEs and LEs for 150'. This worked on strengthening BLEs as well as BUEs. Exercises Seated Therapy Exercises: Ankle pumps, Sit to stand (3), Long arc quads, Hip flexion, Hip abd/add Treatments Pt able to navigate wheelchair x 500' with lowest BP reading 143/78 (pulse 88) seated in the [facility]. Pt then went into gym and completed 3x sit to stand and stood at // bars for approx 1 minute each. Pt had one episode of unsteadiness but was able to regain with holding onto bar. In standing, lowest BP read 103/70, pt complained of mild lightheadedness. Assessment Current Status: Fair Progress Treatment continues to be limited by pts hypotension in standing, will continue to progress as pt tolerates. PT Short Term Goals Short Term Goals Time Frame: Mar 16, 2020 Roll Left & Right: 6 Sit to lyin Lying to sitting on side of be: 6 Sit to stand: 4 Chair/cmd-ev-ppmcc transfer: 4 Walk 10 feet: 4 Walk 50 feet with two turns: 4 Walk 150 feet: 4 PT Obstetrical Nurse Goals [facility] Goals PT Obstetrical Nurse Goals Time Frame: Mar 30, 2020 Roll Left & Right (QC): 6 Sit to Lying (QC): 6 Lying-Sitting on Side/Bed(QC): 6 Sit to Stand (QC): 4 (SBA) Chair/Jpv-ci-Kztfi Xfer(QC): 4 (SBA) Toilet Transfer (QC): 4 (SBA) Car Transfer (QC): 4 (SBA) Does the Patient Walk: Yes Walk 10 feet (QC): 4 (SBA) Walk 50ft with 2 Turns (QC): 4 (SBA) Walk 150 ft (QC): 4 (SBA) Walking 10ft on Uneven Surface: 4 (CGA) 1 Step (curb) (QC): 4 (CGA) 4 Steps (QC): 4 (CGA) 12 Steps (QC): 88 Picking up an Object (QC): 4 (CGA) Wheel 50 feet with 2 turns (QC: 6 Wheel 150 feet: 6 PT Plan Problem List Problem List: Activity Tolerance, Functional Strength, Safety, Balance, Gait, Transfer, Bed Mobility, ROM Treatment/Plan Treatment Plan: Continue Plan of Care Treatment Plan: Bed Mobility, Education, Functional Activity Patria, Functional Strength, Group Therapy, Gait, Safety, Therapeutic Exercise, Transfers Treatment Duration: Mar 30, 2020 Frequency: At least 5 of 7 days/Wk (IRF) Estimated Hrs Per Day: 1.5 hours per day Patient and/or Family Agrees t: Yes Time/GCodes Time In: 1300 Time Out: 1345 Total Billed Treatment Time: 45 Total Billed Treatment 1 visit [facility] (25') EX (20') KHANH SWEENEY PT Mar 11, 2020 13:56
[2020-03-11] MEDS: ENOXAPARIN 40 MG/0.4 ML (LOVENOX) SYR SC SCH (17:09)
[2020-03-11 18:00] VITALS: BP 168/77
[2020-03-11] MEDS: CARVEDILOL 3.125 MG (COREG) TABLET PO SCH (20:36)
[2020-03-11] MEDS: ZOLPIDEM 5 MG (AMBIEN) TAB PO SCH (20:37)
[2020-03-12] VITALS (8 sets, daily range): BP systolic 96–173; BP diastolic 60–78
[2020-03-12] MEDS: chlorproMAZINE 25 MG (THORAZINE) TAB PO PRN ×3 (05:22→21:00)
[2020-03-12 06:56] LABS: BASOPHILS % (AUTO) 1 % (0-10); EOSINOPHILS # (AUTO) 0.4 10^3/uL (0.0-0.3); EOSINOPHILS % (AUTO) 6 % (0-10); HEMATOCRIT 31 % (40-54); HEMOGLOBIN 10.2 g/dL (13.3-17.7); LYMPHOCYTES # (AUTO) 1.3 10^3/uL (1.0-4.0); LYMPHOCYTES % (AUTO) 20 % (12-44); MEAN CORPUSCULAR HEMOGLOBIN 30 pg (25-34); MEAN CORPUSCULAR HGB CONC 33 g/dL (32-36); MEAN CORPUSCULAR VOLUME 91 fL (80-99); MONOCYTES # (AUTO) 0.9 10^3/uL (0.0-1.0); MONOCYTES % (AUTO) 13 % (0-12); NEUTROPHILS % (AUTO) 60 % (42-75); PLATELET COUNT 206 10^3/uL (130-400); WHITE BLOOD COUNT 6.6 10^3/uL (4.3-11.0)
[2020-03-12 07:15] LABS: ALANINE AMINOTRANSFERASE 12 U/L (0-55); ALKALINE PHOSPHATASE 41 U/L (40-136); BILIRUBIN,TOTAL 0.5 MG/DL (0.1-1.0); BUN/CREATININE RATIO 27; CALCIUM 8.3 MG/DL (8.5-10.1); CARBON DIOXIDE 18 MMOL/L (21-32); CHLORIDE 109 MMOL/L (98-107); CREATININE SERUM 1.11 MG/DL (0.60-1.30); GFR ESTIMATED > 60; GLUCOSE 107 MG/DL (70-105); SODIUM 136 MMOL/L (135-145); TOTAL PROTEIN 5.4 GM/DL (6.4-8.2)
[2020-03-12] MEDS: BACLOFEN 10 MG (LIORESAL) TAB PO SCH ×3 (08:24→21:04)
[2020-03-12] MEDS: ASPIRIN E.C. 325 MG (ECOTRIN) TABLET PO SCH (08:25)
[2020-03-12] MEDS: FLUDROCORTISONE 0.1 MG (FLORINEF) TAB PO SCH (08:25)
[2020-03-12] MEDS: lisINopril 10 MG (PRINIVIL) TABLET PO SCH (08:36)
[2020-03-12] MEDS: CARVEDILOL 3.125 MG (COREG) TABLET PO SCH ×2 (08:36→21:00)
[2020-03-12] MEDS: DOCUSATE SODIUM 100 MG (COLACE) CAP PO SCH ×2 (08:37→21:00)
[2020-03-12] MEDS: polyethylene glycoL POWDER 17 GM (MIRALAX) PACK PO SCH ×2 (08:37→21:00)
[2020-03-12] MEDS: guaiFENesin/CODEINE (ROBITUSSIN AC) 10ML UDC PO PRN (08:38)
[2020-03-12] MEDS: SENNA W/DOCUSATE (SENOKOT S) TABLET PO SCH ×2 (08:38→21:00)
--- NOTE | 2020-03-12 09:51 | PM&R Progress Note ---
Subjective HPI/CC On Admission Date Seen by Provider: Mar 12, 2020 Time Seen by Provider: 10:30 Subjective/Events-last exam 03/12/20: Hiccups still present IVF heplocked Creat 1.1 now after IVF Baclofen for hiccups Robitussin AC 03/11/20: Will HLIVF later today Florinef will be started to help with orthostasis CXR done for cough and that was normal Baclofen will be given for hiccups 03/10/20: Thorazine is helping the hiccups BP was quite a bit lower this morning, held all of his meds, cardiology was consulted and he did have an episode of severe balance issues His BP was 89/41 , will give a liter of normal saline bolus and 100 CCs per hour He really hasnt been drinking a lot Appreciate cardiology consult Review of Systems General: Fatigue, Malaise Neurological: Weakness, Incoordination Objective Exam Vital Signs Vital Signs Date Time Temp Pulse Resp B/P (MAP) Pulse Ox O2 Delivery O2 Flow Rate FiO2 03/12/20 17:35 36.8 65 20 172/74 (106) 92 03/12/20 08:47 Room Air Capillary Refill : Less Than 3 Seconds General Appearance: No Apparent Distress, WD/WN, Chronically ill HEENT: PERRL/EOMI, Normal ENT Inspection, Pharynx Normal Neck: Full Range of Motion, Normal Inspection, Non Tender, Supple, Carotid Bruit Respiratory: Chest Non Tender, Lungs Clear, Normal Breath Sounds, No Accessory Muscle Use, No Respiratory Distress Cardiovascular: Regular Rate, Rhythm, No Edema, No Gallop, No JVD, No Murmur, Normal Peripheral Pulses Gastrointestinal: Normal Bowel Sounds, No Organomegaly, No Pulsatile Mass, Non Tender, Soft Back: Normal Inspection, No CVA Tenderness, No Vertebral Tenderness Extremity: Normal Capillary Refill, Normal Inspection, Normal Range of Motion, Non Tender, No Calf Tenderness, No Pedal Edema Neurologic/Psychiatric: Alert, Oriented x3, No Motor/Sensory Deficits, Normal Mood/Affect, 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 FIM Transfers Therapy Code Descriptions/Definitions Functional [place] Measure: 0=Not Assessed/NA 4=Minimal Assistance 1=Total Assistance 5=Supervision or Setup 2=Maximal Assistance 6=Modified [place] 3=Moderate Assistance 7=Complete IndependenceSCALE: Activities may be completed with or without assistive devices. 1-Pjuedzwqmm-jrarwwc completes the activity by him/herself with no assistance from a helper. 5-Set-up or Clean-up Assistance-helper sets up or cleans up; patient completes activity. [place] assists only prior to or following the activity. 4-Supervision or Touching Assistance-helper provides verbal cues and/or touching/steadying and/or contact guard assistance as patient completes activity. Assistance may be provided throughout the activity or intermittently. 3-Partial/Moderate Assistance-helper does LESS THAN HALF the effort. [place] lifts, holds or supports trunk or limbs, but provides less than half the effort. 2-Substantial/Maximal Assistance-helper does MORE THAN HALF the effort. [place] lifts or holds trunk or limbs and provides more than half the effort. 5-Dwiwximga-uvfylj does ALL the effort. Patient does none of the effort to complete the activity. Or, the assistance of 2 or more helpers is required for the patient to complete the activity. If activity was not attempted, code reason: 7-Patient Refused. 9-Not Applicable-not attempted and the patient did not perform the activity before the current illness, exacerbation or injury. 10-Not Attempted due to Environmental Limitations-(lack of equipment, weather restraints, etc.). 88-Not Attempted due to Medical Conditions or Safety Concerns. Roll Left to Right (QC): 6 Sit to Lying (QC): 6 Sit to Stand (QC): 5 Chair/Grg-oq-Seylz Xfer(QC): 5 Car Transfer (QC): 3 Gait Training Does the Patient Walk?: No and Walking Goal IS indicated Distance: 10 Walk 10 feet (QC): 2 Walk 50 ft with 2 Turns(QC): 88 Walk 150 ft (QC): 88 Walking 10ft/uneven surface-QC: 88 Gait Persons Needed: 2 Gait Assistive Device: FWW Wheelchair Training Does the Pt Use a Wheelchair?: No Wheel 50 ft with 2 turns (QC): 6 Wheel 150 ft (QC): 6 Type of Wheelchair: Manual Stair Training 1 Step (curb) (QC): 3 4 Steps (QC): 88 12 Steps (QC): 88 Balance Picking up an Object (QC): 88 ADL-Treatment Eating (QC): 6 (Per clinical judgement and discussion with pt, pt independent with task.) Oral Hygiene (QC): 6 Shower/Bathe Self (QC): 4 Upper Body Dressing (QC): 5 Lower Body Dressing (QC): 4 On/Off Footwear (QC): 6 Toileting Hygiene (QC): 7 Assessment/Plan Assessment and Plan Assess & Plan/Chief Complaint Assessment: CVA w/diploplia and balance dysfunction residual Pacemaker HLP HTN Chronic back pain THC use Plan: IRF protocol Home meds Monitor closely 03/10/20: IVF bolus Increase PO intake Monitor BP closely 03/11/20: Baclofen for hiccups IVF then DC Florinef for orthostasis 03/12/20: Florinef s/p IVF Monitor hiccups Baclofen and Thorazine (1) CVA (cerebral vascular accident) (2) Dyslipidemia Status: Acute (3) Pacemaker Status: Chronic (4) HTN (hypertension) Status: Acute (5) Left facial numbness Status: Acute (6) Hypertension Status: Acute KAREN LANDAVERDE DO Mar 12, 2020 09:51
--- NOTE | 2020-03-12 11:57 | Physical Therapy Daily Note ---
PT Daily Note-Current Subjective Pt reports feeling well on arrival. Mental Status Patient Orientation: Person, Place, Time, Situation Transfers SCALE: Activities may be completed with or without assistive devices. 6-Wbqlkvldmv-wtxrmec completes the activity by him/herself with no assistance from a helper. 5-Set-up or Clean-up Assistance-helper sets up or cleans up; patient completes activity. [place] assists only prior to or following the activity. 4-Supervision or Touching Assistance-helper provides verbal cues and/or touching /steadying and/or contact guard assistance as patient completes activity. Assistance may be provided throughout the activity or intermittently. 3-Partial/Moderate Assistance-helper does LESS THAN HALF the effort. [place] lifts, holds or supports trunk or limbs, but provides less than half the effort. 2-Substantial/Maximal Assistance-helper does MORE THAN HALF the effort. [place] lifts or holds trunk or limbs and provides more than half the effort. 4-Gvmfemknt-tmhmpv does ALL the effort. Patient does none of the effort to complete the activity. Or, the assistance of 2 or more helpers is required for the patient to complete the activity. If activity was not attempted, code reason: 7-Patient Refused. 9-Not Applicable-not attempted and the patient did not perform the activity before the current illness, exacerbation or injury. 10-Not Attempted due to Environmental Limitations-(lack of equipment, weather restraints, etc.). 88-Not Attempted due to Medical Conditions or Safety Concerns. Roll Left & Right (QC): 4 Sit to Lying (QC): 4 Lying to Sitting/Side of Bed(Q: 4 Sit to Stand (QC): 4 Chair/Mvn-gt-Yysuk Xfer(QC): 4 Weight Bearing Right Lower Extremity: Right Full Weight Bearing Left Lower Extremity: Left Full Weight Bearing Gait Training Does the Patient Walk?: Yes Distance: 50ft x2, 25ft Walk 10 feet (QC): 4 Walk 50 ft with 2 Turns(QC): 4 Gait Persons Needed: 1 Gait Assistive Device: FWW Wheelchair Training Does the Pt Use a Wheelchair?: Yes Wheel 50 ft with 2 turns (QC): 5 Type of Wheelchair: Manual ( ) Exercises Supine Ex: LE Protocol Supine Reps: 20 Seated Therapy Exercises: LE Protocol Seated Reps: [address] Ex=Flex, Abd, Ext, Marching Standing Reps: 20 NuStep Minutes: 11 NuStep Workload: 1 Assessment Current Status: Good Progress Blood pressure while seated, prior to standing was 131/60. After standing and walking 50ft he was at 108/55. Pt noted moderate fatigue, but stated that he feels better today than yesterday. PT Short Term Goals Short Term Goals Time Frame: Mar 16, 2020 Roll Left & Right: 6 Sit to lyin Lying to sitting on side of be: 6 Sit to stand: 4 Chair/yeu-nt-lclxx transfer: 4 Walk 10 feet: 4 Walk 50 feet with two turns: 4 Walk 150 feet: 4 PT Residential Goals Title Search Manager Goals PT Title Search Manager Goals Time Frame: Mar 30, 2020 Roll Left & Right (QC): 6 Sit to Lying (QC): 6 Lying-Sitting on Side/Bed(QC): 6 Sit to Stand (QC): 4 (SBA) Chair/Bze-sd-Gzrre Xfer(QC): 4 (SBA) Toilet Transfer (QC): 4 (SBA) Car Transfer (QC): 4 (SBA) Does the Patient Walk: Yes Walk 10 feet (QC): 4 (SBA) Walk 50ft with 2 Turns (QC): 4 (SBA) Walk 150 ft (QC): 4 (SBA) Walking 10ft on Uneven Surface: 4 (CGA) 1 Step (curb) (QC): 4 (CGA) 4 Steps (QC): 4 (CGA) 12 Steps (QC): 88 Picking up an Object (QC): 4 (CGA) Wheel 50 feet with 2 turns (QC: 6 Wheel 150 feet: 6 PT Plan Treatment/Plan Treatment Plan: Continue Plan of Care Treatment Plan: Bed Mobility, Education, Functional Activity Patria, Functional Strength, Group Therapy, Gait, Safety, Therapeutic Exercise, Transfers Treatment Duration: Mar 30, 2020 Frequency: At least 5 of 7 days/Wk (IRF) Estimated Hrs Per Day: 1.5 hours per day Patient and/or Family Agrees t: Yes Time/GCodes Time In: 1000 Time Out: 1100 Total Billed Treatment Time: 60 Total Billed Treatment 1, ex x3 (45), gt (15) GADIEL MONAE PT Mar 12, 2020 11:57
--- NOTE | 2020-03-12 12:56 | Occupational Ther Daily Note ---
OT Current Status-Daily Note Subjective Pt alert, lying in bed. Nrsg in room. Pt agrees to therapy. States he feels better today. Orthostatic BP taken-Supine 147/75, pulse 70; sitting 103/62, pulse 75; Standing 96/62, pulse 83. Reported to nrsg. Mental Status/Objective Patient Orientation: Person, Place, Time, Situation Attachments: IV ADL-Treatment Pt agrees to shower. Pt transferred from recliner to w/c and propelled self in chair. Close SBA to transfer in/out of shower. SBA to complete shower, pt leaned side to side to cleanse buttocks. Pt educated on figure 4 position to dry own feet. After set up, pt able to doff/don socks, shoes and shirt by self. After set up, pt able to don/doff lower body clothing, close SBA in standing to hike pants over hips. Pt propelled w/c to sit at sink and complete oral care and grooming. Therapy Code Descriptions/Definitions Functional [place] Measure: 0=Not Assessed/NA 4=Minimal Assistance 1=Total Assistance 5=Supervision or Setup 2=Maximal Assistance 6=Modified [place] 3=Moderate Assistance 7=Complete IndependenceSCALE: Activities may be completed with or without assistive devices. 9-Ottviwpbzv-srkwqit completes the activity by him/herself with no assistance from a helper. 5-Set-up or Clean-up Assistance-helper sets up or cleans up; patient completes activity. [place] assists only prior to or following the activity. 4-Supervision or Touching Assistance-helper provides verbal cues and/or touching/steadying and/or contact guard assistance as patient completes activity. Assistance may be provided throughout the activity or intermittently. 3-Partial/Moderate Assistance-helper does LESS THAN HALF the effort. [place] l ifts, holds or supports trunk or limbs, but provides less than half the effort. 2-Substantial/Maximal Assistance-helper does MORE THAN HALF the effort. [place] lifts or holds trunk or limbs and provides more than half the effort. 4-Wvwaejuqk-kegxwy does ALL the effort. Patient does none of the effort to complete the activity. Or, the assistance of 2 or more helpers is required for t he patient to complete the activity. If activity was not attempted, code reason: 7-Patient Refused. 9-Not Applicable-not attempted and the patient did not perform the activity before the current illness, exacerbation or injury. 10-Not Attempted due to Environmental Limitations-(lack of equipment, weather restraints, etc.). 88-Not Attempted due to Medical Conditions or Safety Concerns. Oral Hygiene (QC): 6 Shower/Bathe Self (QC): 4 Upper Body Dressing (QC): 5 Lower Body Dressing (QC): 4 On/Off Footwear: 5 Toileting Hygiene (QC): 4 (SBA for safety.) Toilet Transfer (QC): 4 (SBA for safety.) Other Treatment Pt propelled w/c to therapy gym to complete arm bike to increase strength and activity tolerance for daily functional task. 12 min duration with minimal resistance. After session, pt lying in bed with call light/phone in reach. All needs met in room. OT [facility] Goals [facility] Goals Time Frame: Mar 19, 2020 Eating (QC): 6 Oral Hygiene (QC): 6 Toileting Hygiene (QC): 6 Shower/Bathe Self (QC): 6 Upper Body Dressing (QC): 6 Lower Body Dressing (QC): 6 On/Off Footwear (QC): 6 1=Demonstrate adherence to instructed precautions during ADL tasks. 2=Patient will verbalize/demonstrate understanding of assistive devices/modifications for ADL. 3=Patient will improve strength/tolerance for activity to enable patient to perform ADL's. OT Education/Plan Problem List/Assessment Assessment: Decreased Activ Tolerance, Decreased Safety Aware, Impaired Funct Balance Discharge Recommendations Plan/Recommendations: Continue POC Treatment Plan/Plan of Care Patient would benefit from OT for education, treatment and training to promote independence in ADL's, mobility, safety and/or upper extremity function for ADL's. Plan of Care: ADL Retraining, Functional Mobility, UE Funct Exercise/Act Treatment Duration: Mar 19, 2020 Frequency: Modified Program (IRF) (09/09) Estimated Hrs Per Day: 1.5 hours per day (1-1.5) Agreement: Yes Rehab Potential: Fair Time/GCodes Start Time: 08:30 Stop Time: 10:00 Total Time Billed (hr/min): 90 Billed Treatment Time 1 visit-FA 2 (30 min), ADL 3 (45 min) EX 1 (15 min) YULIA OROZCO Mar 12, 2020 12:56
--- NOTE | 2020-03-12 16:33 | Physical Therapy Daily Note ---
PT Daily Note-Current Subjective Pt continues to have consistent hiccups throughout treatment. He also exhibits difficulty swallowing water. Mental Status Patient Orientation: Person, Place, Time, Situation Transfers SCALE: Activities may be completed with or without assistive devices. 3-Yuvhfvjmqt-yvdeerc completes the activity by him/herself with no assistance from a helper. 5-Set-up or Clean-up Assistance-helper sets up or cleans up; patient completes activity. [place] assists only prior to or following the activity. 4-Supervision or Touching Assistance-helper provides verbal cues and/or touching/steadying and/or contact guard assistance as patient completes activity. Assistance may be provided throughout the activity or intermittently. 3-Partial/Moderate Assistance-helper does LESS THAN HALF the effort. [place] lifts, holds or supports trunk or limbs, but provides less than half the effort. 2-Substantial/Maximal Assistance-helper does MORE THAN HALF the effort. [place] lifts or holds trunk or limbs and provides more than half the effort. 4-Bvzjyanzz-womkfs does ALL the effort. Patient does none of the effort to complete the activity. Or, the assistance of 2 or more helpers is required for the patient to complete the activity. If activity was not attempted, code reason: 7-Patient Refused. 9-Not Applicable-not attempted and the patient did not perform the activity before the current illness, exacerbation or injury. 10-Not Attempted due to Environmental Limitations-(lack of equipment, weather restraints, etc.). 88-Not Attempted due to Medical Conditions or Safety Concerns. Roll Left & Right (QC): 6 Sit to Lying (QC): 5 Lying to Sitting/Side of Bed(Q: 5 Weight Bearing Right Lower Extremity: Right Full Weight Bearing Left Lower Extremity: Left Full Weight Bearing Gait Training Does the Patient Walk?: Yes Exercises Supine Ex: LE Protocol Supine Reps: 30 Seated Therapy Exercises: LE Protocol Seated Reps: 20 Treatments Worked on deep breathing and seated abdominal firing due to hiccups and hypotension issues. Assessment Current Status: Good Progress Pt is performing (B) LE ex without assistance and is improving with bed mobility and transfers requiring mostly cueing. PT Short Term Goals Short Term Goals Time Frame: Mar 16, 2020 Roll Left & Right: 6 Sit to lyin Lying to sitting on side of be: 6 Sit to stand: 4 Chair/fnj-yo-lpaws transfer: 4 Walk 10 feet: 4 Walk 50 feet with two turns: 4 Walk 150 feet: 4 PT Roller Mill Tender Goals Jail Goals PT Jail Goals Time Frame: Mar 30, 2020 Roll Left & Right (QC): 6 Sit to Lying (QC): 6 Lying-Sitting on Side/Bed(QC): 6 Sit to Stand (QC): 4 (SBA) Chair/Tbw-ma-Qtipc Xfer(QC): 4 (SBA) Toilet Transfer (QC): 4 (SBA) Car Transfer (QC): 4 (SBA) Does the Patient Walk: Yes Walk 10 feet (QC): 4 (SBA) Walk 50ft with 2 Turns (QC): 4 (SBA) Walk 150 ft (QC): 4 (SBA) Walking 10ft on Uneven Surface: 4 (CGA) 1 Step (curb) (QC): 4 (CGA) 4 Steps (QC): 4 (CGA) 12 Steps (QC): 88 Picking up an Object (QC): 4 (CGA) Wheel 50 feet with 2 turns (QC: 6 Wheel 150 feet: 6 PT Plan Treatment/Plan Treatment Plan: Continue Plan of Care Treatment Plan: Bed Mobility, Education, Functional Activity Patria, Functional Strength, Group Therapy, Gait, Safety, Therapeutic Exercise, Transfers Treatment Duration: Mar 30, 2020 Frequency: At least 5 of 7 days/Wk (IRF) Estimated Hrs Per Day: 1.5 hours per day Patient and/or Family Agrees t: Yes Time/GCodes Time In: 1502 Time Out: 1536 Total Billed Treatment Time: 34 Total Billed Treatment 1, ex x2 GADIEL MONAE PT Mar 12, 2020 16:33
[2020-03-12] MEDS: ENOXAPARIN 40 MG/0.4 ML (LOVENOX) SYR SC SCH (17:18)
[2020-03-12] MEDS: ZOLPIDEM 5 MG (AMBIEN) TAB PO SCH (21:04)
--- NOTE | 2020-03-13 05:15 | PM&R Progress Note ---
Subjective HPI/CC On Admission Date Seen by Provider: Mar 13, 2020 Time Seen by Provider: 08:00 Subjective/Events-last exam 03/13/20: Improved status Was able to stand and do well Florinef helping along with KALEB and JUAN ANTONIO wraps Cough is sometimes productive CXR negative no fever Baclofen and Thorazine improved hiccups 03/12/20: Hiccups still present IVF heplocked Creat 1.1 now after IVF Baclofen for hiccups Robitussin AC 03/11/20: Will HLIVF later today Florinef will be started to help with orthostasis CXR done for cough and that was normal Baclofen will be given for hiccups 03/10/20: Thorazine is helping the hiccups BP was quite a bit lower this morning, held all of his meds, cardiology was consulted and he did have an episode of severe balance issues His BP was 89/41 , will give a liter of normal saline bolus and 100 CCs per hour He really hasnt been drinking a lot Appreciate cardiology consult Review of Systems Neurological: Weakness, Incoordination Objective Exam Vital Signs Vital Signs Date Time Temp Pulse Resp B/P (MAP) Pulse Ox O2 Delivery O2 Flow Rate FiO2 03/14/20 05:44 37.0 66 16 132/64 (86) 97 Room Air Capillary Refill : Less Than 3 Seconds General Appearance: No Apparent Distress, WD/WN, Chronically ill HEENT: PERRL/EOMI, Normal ENT Inspection, Pharynx Normal Neck: Full Range of Motion, Normal Inspection, Non Tender, Supple, Carotid Bruit Respiratory: Chest Non Tender, Lungs Clear, Normal Breath Sounds, No Accessory Muscle Use, No Respiratory Distress Cardiovascular: Regular Rate, Rhythm, No Edema, No Gallop, No JVD, No Murmur, Normal Peripheral Pulses Gastrointestinal: Normal Bowel Sounds, No Organomegaly, No Pulsatile Mass, Non Tender, Soft Back: Normal Inspection, No CVA Tenderness, No Vertebral Tenderness Extremity: Normal Capillary Refill, Normal Inspection, Normal Range of Motion, Non Tender, No Calf Tenderness, No Pedal Edema Neurologic/Psychiatric: Alert, Oriented x3, No Motor/Sensory Deficits, Normal Mood/Affect, hog ringer II-XII Norm as Tested, Abnormal Gait, Other (double vision) Skin: Normal Color, Warm/Dry Lymphatic: No Adenopathy Results/Procedures Lab Patient resulted labs reviewed. FIM Transfers Therapy Code Descriptions/Definitions Functional [place] Measure: 0=Not Assessed/NA 4=Minimal Assistance 1=Total Assistance 5=Supervision or Setup 2=Maximal Assistance 6=Modified [place] 3=Moderate Assistance 7=Complete IndependenceSCALE: Activities may be completed with or without assistive devices. 6-Jmmojsrigj-segfbcz completes the activity by him/herself with no assistance from a helper. 5-Set-up or Clean-up Assistance-helper sets up or cleans up; patient completes activity. [place] assists only prior to or following the activity. 4-Supervision or Touching Assistance-helper provides verbal cues and/or touching/steadying and/or contact guard assistance as patient completes activity. Assistance may be provided throughout the activity or intermittently. 3-Partial/Moderate Assistance-helper does LESS THAN HALF the effort. [place] lifts, holds or supports trunk or limbs, but provides less than half the effort. 2-Substantial/Maximal Assistance-helper does MORE THAN HALF the effort. [place] lifts or holds trunk or limbs and provides more than half the effort. 7-Feogdyaax-brcvlj does ALL the effort. Patient does none of the effort to complete the activity. Or, the assistance of 2 or more helpers is required for the patient to complete the activity. If activity was not attempted, code reason: 7-Patient Refused. 9-Not Applicable-not attempted and the patient did not perform the activity before the current illness, exacerbation or injury. 10-Not Attempted due to Environmental Limitations-(lack of equipment, weather restraints, etc.). 88-Not Attempted due to Medical Conditions or Safety Concerns. Roll Left to Right (QC): 6 Sit to Lying (QC): 5 Sit to Stand (QC): 4 Chair/Ywy-iz-Ayivm Xfer(QC): 4 Car Transfer (QC): 3 Gait Training Does the Patient Walk?: Yes Distance: 50ft x2, 25ft Walk 10 feet (QC): 4 Walk 50 ft with 2 Turns(QC): 4 Walk 150 ft (QC): 88 Walking 10ft/uneven surface-QC: 88 Gait Persons Needed: 1 Gait Assistive Device: FWW Wheelchair Training Does the Pt Use a Wheelchair?: Yes Wheel 50 ft with 2 turns (QC): 5 Wheel 150 ft (QC): 6 Type of Wheelchair: Manual ( ) Stair Training 1 Step (curb) (QC): 3 4 Steps (QC): 88 12 Steps (QC): 88 Balance Picking up an Object (QC): 88 ADL-Treatment Eating (QC): 6 (Per clinical judgement and discussion with pt, pt independent with task.) Oral Hygiene (QC): 6 Shower/Bathe Self (QC): 4 Upper Body Dressing (QC): 5 Lower Body Dressing (QC): 4 On/Off Footwear (QC): 5 Toileting Hygiene (QC): 4 (SBA for safety.) Toilet Transfer (QC): 4 (SBA for safety.) Assessment/Plan Assessment and Plan Assess & Plan/Chief Complaint Assessment: CVA w/diploplia and balance dysfunction residual Pacemaker HLP HTN Chronic back pain THC use Plan: IRF protocol Home meds Monitor closely 03/10/20: IVF bolus Increase PO intake Monitor BP closely 03/11/20: Baclofen for hiccups IVF then DC Florinef for orthostasis 03/12/20: Florinef s/p IVF Monitor hiccups Baclofen and Thorazine 03/13/20: Improved Hiccups improved Monitor orthostasis closely (1) CVA (cerebral vascular accident) (2) Dyslipidemia Status: Acute (3) Pacemaker Status: Chronic (4) HTN (hypertension) Status: Acute (5) Left facial numbness Status: Acute (6) Hypertension Status: Acute KAREN LANDAVERDE DO Mar 13, 2020 05:15
[2020-03-13 06:41] VITALS: BP 160/73
[2020-03-13] MEDS: guaiFENesin/CODEINE (ROBITUSSIN AC) 10ML UDC PO PRN (06:44)
[2020-03-13] MEDS: chlorproMAZINE 25 MG (THORAZINE) TAB PO PRN ×3 (06:44→21:14)
[2020-03-13] MEDS: BACLOFEN 10 MG (LIORESAL) TAB PO SCH ×3 (09:54→21:14)
[2020-03-13] MEDS: CARVEDILOL 3.125 MG (COREG) TABLET PO SCH ×2 (09:54→21:15)
[2020-03-13] MEDS: FLUDROCORTISONE 0.1 MG (FLORINEF) TAB PO SCH (09:54)
[2020-03-13] MEDS: ASPIRIN E.C. 325 MG (ECOTRIN) TABLET PO SCH (09:54)
[2020-03-13] MEDS: lisINopril 10 MG (PRINIVIL) TABLET PO SCH (09:54)
[2020-03-13] MEDS: DOCUSATE SODIUM 100 MG (COLACE) CAP PO SCH ×2 (11:51→21:15)
[2020-03-13] MEDS: polyethylene glycoL POWDER 17 GM (MIRALAX) PACK PO SCH ×2 (11:52→21:15)
[2020-03-13] MEDS: SENNA W/DOCUSATE (SENOKOT S) TABLET PO SCH ×2 (11:52→21:15)
--- NOTE | 2020-03-13 12:21 | Physical Therapy Daily Note ---
PT Daily Note-Current Subjective Pt in bed upon arrival; agrees to PT. Pain Numeric Pain Scale: 0-No Pain Location: No Pain Reported Mental Status Patient Orientation: Person, Place, Time, Situation Transfers SCALE: Activities may be completed with or without assistive devices. 7-Dkhlodwybl-tkropht completes the activity by him/herself with no assistance from a helper. 5-Set-up or Clean-up Assistance-helper sets up or cleans up; patient completes activity. [place] assists only prior to or following the activity. 4-Supervision or Touching Assistance-helper provides verbal cues and/or touching/steadying and/or contact guard assistance as patient completes activity. Assistance may be provided throughout the activity or intermittently. 3-Partial/Moderate Assistance-helper does LESS THAN HALF the effort. [place] lifts, holds or supports trunk or limbs, but provides less than half the effort. 2-Substantial/Maximal Assistance-helper does MORE THAN HALF the effort. [place] lifts or holds trunk or limbs and provides more than half the effort. 8-Ywpzixivc-rbnfar does ALL the effort. Patient does none of the effort to complete the activity. Or, the assistance of 2 or more helpers is required for the patient to complete the activity. If activity was not attempted, code reason: 7-Patient Refused. 9-Not Applicable-not attempted and the patient did not perform the activity before the current illness, exacerbation or injury. 10-Not Attempted due to Environmental Limitations-(lack of equipment, weather restraints, etc.). 88-Not Attempted due to Medical Conditions or Safety Concerns. Roll Left & Right (QC): 4 Sit to Lying (QC): 4 Lying to Sitting/Side of Bed(Q: 4 Sit to Stand (QC): 4 Weight Bearing Right Lower Extremity: Right Full Weight Bearing Left Lower Extremity: Left Full Weight Bearing Exercises Standing: Heel/toe raises, Marching, Mini squats, Weight shifts Standing Reps: 12 (x2) Treatments Upon sitting EOB, RN comes into room to give pt medication. Pt has extreme difficulty swallowing medication and begins coughing. VC's given to remember to tuck chin. Standing ex completed. Pt in bed w/ call light and bedside table w/in reach and all needs met, at end of tx. Assessment Current Status: Good Progress Pt motivated and pleasant. PT Short Term Goals Short Term Goals Time Frame: Mar 16, 2020 Roll Left & Right: 6 Sit to lyin Lying to sitting on side of be: 6 Sit to stand: 4 Chair/tam-vc-kjdpu transfer: 4 Walk 10 feet: 4 Walk 50 feet with two turns: 4 Walk 150 feet: 4 PT Coal Sample Tester Goals Coal Sample Tester Goals PT Care Home Goals Time Frame: Mar 30, 2020 Roll Left & Right (QC): 6 Sit to Lying (QC): 6 Lying-Sitting on Side/Bed(QC): 6 Sit to Stand (QC): 4 (SBA) Chair/Bvm-rj-Qyazt Xfer(QC): 4 (SBA) Toilet Transfer (QC): 4 (SBA) Car Transfer (QC): 4 (SBA) Does the Patient Walk: Yes Walk 10 feet (QC): 4 (SBA) Walk 50ft with 2 Turns (QC): 4 (SBA) Walk 150 ft (QC): 4 (SBA) Walking 10ft on Uneven Surface: 4 (CGA) 1 Step (curb) (QC): 4 (CGA) 4 Steps (QC): 4 (CGA) 12 Steps (QC): 88 Picking up an Object (QC): 4 (CGA) Wheel 50 feet with 2 turns (QC: 6 Wheel 150 feet: 6 PT Plan Problem List Problem List: Activity Tolerance, Functional Strength, Safety, Balance, Gait, Transfer, Bed Mobility, ROM Treatment/Plan Treatment Plan: Continue Plan of Care Treatment Plan: Bed Mobility, Education, Functional Activity [place], Functional Strength, Group Therapy, Gait, Safety, Therapeutic Exercise, Transfers Treatment Duration: Mar 30, 2020 Frequency: At least 5 of 7 days/Wk (IRF) Estimated Hrs Per Day: 1.5 hours per day Patient and/or Family Agrees t: Yes Safety Risks/Education Patient Education: Transfer Techniques, Safety Issues Teaching Recipient: Patient Teaching Methods: Discussion Response to Teaching: Verbalize Understanding Time/GCodes Time In: 0955 Time Out: 1018 Total Billed Treatment Time: 23 Total Billed Treatment 1, EX(15m), FA(8m) ANDRES ANDERS DIRECTOR MARKETING Mar 13, 2020 12:21
[2020-03-13] MEDS: ALPRAZolam 0.25 MG (XANAX) TAB PO PRN (14:43)
[2020-03-13 17:52] VITALS: BP 126/86
[2020-03-13] MEDS: ENOXAPARIN 40 MG/0.4 ML (LOVENOX) SYR SC SCH (17:52)
--- NOTE | 2020-03-13 20:15 | NUR ---
Pt has been talking on phone for approx the last hour, no hiccuping heard. Voice sounds clear & strong.
[2020-03-13] MEDS: MELATONIN 3 MG TABLET PO PRN (21:14)
[2020-03-13] MEDS: ZOLPIDEM 5 MG (AMBIEN) TAB PO SCH (21:15)
[2020-03-14 05:44] VITALS: BP 132/64
--- NOTE | 2020-03-14 08:10 | PM&R Progress Note ---
Subjective HPI/CC On Admission Date Seen by Provider: Mar 14, 2020 Time Seen by Provider: 12:30 Subjective/Events-last exam 03/14/20: Improved overall Able to ambulate without orthostasis now Diploplia noted Flornief maintained BM yesterday COugh is noted will have ST evaluate his swallowing tomorrow for microaspiration? Thorazine and Baclofen and Xanax has really helped the hiccups 03/13/20: Improved status Was able to stand and do well Florinef helping along with KALEB and JUAN ANTONIO wraps Cough is sometimes productive CXR negative no fever Baclofen and Thorazine improved hiccups 03/12/20: Hiccups still present IVF heplocked Creat 1.1 now after IVF Baclofen for hiccups Robitussin AC 03/11/20: Will HLIVF later today Florinef will be started to help with orthostasis CXR done for cough and that was normal Baclofen will be given for hiccups 03/10/20: Thorazine is helping the hiccups BP was quite a bit lower this morning, held all of his meds, cardiology was consulted and he did have an episode of severe balance issues His BP was 89/41 , will give a liter of normal saline bolus and 100 CCs per hour He really hasnt been drinking a lot Appreciate cardiology consult Review of Systems General: Fatigue, Malaise Neurological: Weakness, Incoordination Objective Exam Vital Signs Vital Signs Date Time Temp Pulse Resp B/P (MAP) Pulse Ox O2 Delivery O2 Flow Rate FiO2 03/14/20 17:39 36.0 63 18 161/74 (103) 94 Room Air Capillary Refill : Less Than 3 Seconds General Appearance: No Apparent Distress, WD/WN, Chronically ill HEENT: PERRL/EOMI, Normal ENT Inspection, Pharynx Normal Neck: Full Range of Motion, Normal Inspection, Non Tender, Supple, Carotid Bruit Respiratory: Chest Non Tender, Lungs Clear, Normal Breath Sounds, No Accessory Muscle Use, No Respiratory Distress Cardiovascular: Regular Rate, Rhythm, No Edema, No Gallop, No JVD, No Murmur, Normal Peripheral Pulses Gastrointestinal: Normal Bowel Sounds, No Organomegaly, No Pulsatile Mass, Non Tender, Soft Back: Normal Inspection, No CVA Tenderness, No Vertebral Tenderness Extremity: Normal Capillary Refill, Normal Inspection, Normal Range of Motion, Non Tender, No Calf Tenderness, No Pedal Edema Neurologic/Psychiatric: Alert, Oriented x3, No Motor/Sensory Deficits, Normal Mood/Affect, 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 FIM Transfers Therapy Code Descriptions/Definitions Functional [place] Measure: 0=Not Assessed/NA 4=Minimal Assistance 1=Total Assistance 5=Supervision or Setup 2=Maximal Assistance 6=Modified [place] 3=Moderate Assistance 7=Complete IndependenceSCALE: Activities may be completed with or without assistive devices. 9-Dvktboyxkq-voevtsg completes the activity by him/herself with no assistance from a helper. 5-Set-up or Clean-up Assistance-helper sets up or cleans up; patient completes activity. [place] assists only prior to or following the activity. 4-Supervision or Touching Assistance-helper provides verbal cues and/or touching/steadying and/or contact guard assistance as patient completes activity. Assistance may be provided throughout the activity or intermittently. 3-Partial/Moderate Assistance-helper does LESS THAN HALF the effort. [place] lifts, holds or supports trunk or limbs, but provides less than half the effort. 2-Substantial/Maximal Assistance-helper does MORE THAN HALF the effort. [place] lifts or holds trunk or limbs and provides more than half the effort. 8-Azwbedhyd-pfptox does ALL the effort. Patient does none of the effort to complete the activity. Or, the assistance of 2 or more helpers is required for the patient to complete the activity. If activity was not attempted, code reason: 7-Patient Refused. 9-Not Applicable-not attempted and the patient did not perform the activity before the current illness, exacerbation or injury. 10-Not Attempted due to Environmental Limitations-(lack of equipment, weather restraints, etc.). 88-Not Attempted due to Medical Conditions or Safety Concerns. Roll Left to Right (QC): 4 Sit to Lying (QC): 4 Sit to Stand (QC): 4 Chair/Rgb-mg-Krrlc Xfer(QC): 4 Car Transfer (QC): 3 Gait Training Does the Patient Walk?: Yes Distance: 50ft x2, 25ft Walk 10 feet (QC): 4 Walk 50 ft with 2 Turns(QC): 4 Walk 150 ft (QC): 88 Walking 10ft/uneven surface-QC: 88 Gait Persons Needed: 1 Gait Assistive Device: FWW Wheelchair Training Does the Pt Use a Wheelchair?: Yes Wheel 50 ft with 2 turns (QC): 5 Wheel 150 ft (QC): 6 Type of Wheelchair: Manual ( ) Stair Training 1 Step (curb) (QC): 3 4 Steps (QC): 88 12 Steps (QC): 88 Balance Picking up an Object (QC): 88 ADL-Treatment Eating (QC): 6 (Per clinical judgement and discussion with pt, pt independent with task.) Oral Hygiene (QC): 6 Shower/Bathe Self (QC): 4 Upper Body Dressing (QC): 5 Lower Body Dressing (QC): 4 On/Off Footwear (QC): 5 Toileting Hygiene (QC): 4 (SBA for safety.) Toilet Transfer (QC): 4 (SBA for safety.) Assessment/Plan Assessment and Plan Assess & Plan/Chief Complaint Assessment: CVA w/diploplia and balance dysfunction residual Pacemaker HLP HTN Chronic back pain THC use Plan: IRF protocol Home meds Monitor closely 03/10/20: IVF bolus Increase PO intake Monitor BP closely 03/11/20: Baclofen for hiccups IVF then DC Florinef for orthostasis 03/12/20: Florinef s/p IVF Monitor hiccups Baclofen and Thorazine 03/13/20: Improved Hiccups improved Monitor orthostasis closely 03/14/20: Monitor hiccups Improved othostasis Monitor cough ST to evaluate swallowing (1) CVA (cerebral vascular accident) (2) Dyslipidemia Status: Acute (3) Pacemaker Status: Chronic (4) HTN (hypertension) Status: Acute (5) Left facial numbness Status: Acute (6) Hypertension Status: Acute KAREN LANDAVERDE DO Mar 14, 2020 08:10
[2020-03-14] MEDS: chlorproMAZINE 25 MG (THORAZINE) TAB PO PRN ×2 (09:32→20:45)
[2020-03-14] MEDS: FLUDROCORTISONE 0.1 MG (FLORINEF) TAB PO SCH (09:33)
[2020-03-14] MEDS: ASPIRIN E.C. 325 MG (ECOTRIN) TABLET PO SCH (09:33)
[2020-03-14] MEDS: guaiFENesin/CODEINE (ROBITUSSIN AC) 10ML UDC PO PRN (09:33)
[2020-03-14] MEDS: lisINopril 10 MG (PRINIVIL) TABLET PO SCH (09:33)
[2020-03-14] MEDS: CARVEDILOL 3.125 MG (COREG) TABLET PO SCH ×2 (09:33→20:45)
[2020-03-14] MEDS: BACLOFEN 10 MG (LIORESAL) TAB PO SCH ×3 (09:33→20:45)
[2020-03-14] MEDS: DOCUSATE SODIUM 100 MG (COLACE) CAP PO SCH ×2 (12:05→20:45)
[2020-03-14] MEDS: polyethylene glycoL POWDER 17 GM (MIRALAX) PACK PO SCH ×2 (12:05→20:45)
[2020-03-14] MEDS: SENNA W/DOCUSATE (SENOKOT S) TABLET PO SCH ×2 (12:06→20:45)
[2020-03-14 17:39] VITALS: BP 161/74
[2020-03-14] MEDS: ENOXAPARIN 40 MG/0.4 ML (LOVENOX) SYR SC SCH (17:47)
[2020-03-14] MEDS: ALPRAZolam 0.25 MG (XANAX) TAB PO PRN (20:45)
[2020-03-14] MEDS: MELATONIN 3 MG TABLET PO PRN (20:45)
[2020-03-14] MEDS: ZOLPIDEM 5 MG (AMBIEN) TAB PO SCH (20:46)
[2020-03-15 06:06] LABS: BASOPHILS % (AUTO) 1 % (0-10); EOSINOPHILS # (AUTO) 0.3 10^3/uL (0.0-0.3); EOSINOPHILS % (AUTO) 4 % (0-10); HEMATOCRIT 29 % (40-54); HEMOGLOBIN 9.5 g/dL (13.3-17.7); LYMPHOCYTES # (AUTO) 1.6 10^3/uL (1.0-4.0); LYMPHOCYTES % (AUTO) 26 % (12-44); MEAN CORPUSCULAR HEMOGLOBIN 30 pg (25-34); MEAN CORPUSCULAR HGB CONC 33 g/dL (32-36); MEAN CORPUSCULAR VOLUME 91 fL (80-99); MEAN PLATELET VOLUME 8.8 fL (9.0-12.2); MONOCYTES % (AUTO) 15 % (0-12); NEUTROPHILS # (AUTO) 3.3 10^3/uL (1.8-7.8); NEUTROPHILS % (AUTO) 53 % (42-75); PLATELET COUNT 217 10^3/uL (130-400); WHITE BLOOD COUNT 6.3 10^3/uL (4.3-11.0)
[2020-03-15 06:21] LABS: ALBUMIN 2.9 GM/DL (3.2-4.5); CHLORIDE 109 MMOL/L (98-107); POTASSIUM 3.7 MMOL/L (3.6-5.0); SODIUM 140 MMOL/L (135-145)
[2020-03-15 06:23] LABS: GLUCOSE 92 MG/DL (70-105); TOTAL PROTEIN 5.2 GM/DL (6.4-8.2)
[2020-03-15 06:24] LABS: CARBON DIOXIDE 26 MMOL/L (21-32)
[2020-03-15 06:25] LABS: BILIRUBIN,TOTAL 0.3 MG/DL (0.1-1.0)
[2020-03-15 06:27] LABS: ALKALINE PHOSPHATASE 41 U/L (40-136); CREATININE SERUM 1.11 MG/DL (0.60-1.30); GFR ESTIMATED > 60
[2020-03-15 06:28] LABS: BUN/CREATININE RATIO 17
[2020-03-15 06:30] LABS: ALANINE AMINOTRANSFERASE 18 U/L (0-55)
[2020-03-15 06:43] VITALS: BP 156/70
[2020-03-15] MEDS: polyethylene glycoL POWDER 17 GM (MIRALAX) PACK PO SCH ×2 (07:55→21:12)
--- NOTE | 2020-03-15 08:46 | PM&R Progress Note ---
Subjective HPI/CC On Admission Date Seen by Provider: Mar 15, 2020 Time Seen by Provider: 08:30 Subjective/Events-last exam 03/15/20: Pt much improved Denies any new issues Speech therapy will see him for dysphagia and micro-aspiration risk Florinef seems to be helping with the orthostasis Cough is frequent but lungs are clear 03/14/20: Improved overall Able to ambulate without orthostasis now Diploplia noted Flornief maintained BM yesterday COugh is noted will have ST evaluate his swallowing tomorrow for microaspiration? Thorazine and Baclofen and Xanax has really helped the hiccups 03/13/20: Improved status Was able to stand and do well Florinef helping along with KALEB and JUAN ANTONIO wraps Cough is sometimes productive CXR negative no fever Baclofen and Thorazine improved hiccups 03/12/20: Hiccups still present IVF heplocked Creat 1.1 now after IVF Baclofen for hiccups Robitussin AC 03/11/20: Will HLIVF later today Florinef will be started to help with orthostasis CXR done for cough and that was normal Baclofen will be given for hiccups 03/10/20: Thorazine is helping the hiccups BP was quite a bit lower this morning, held all of his meds, cardiology was consulted and he did have an episode of severe balance issues His BP was 89/41 , will give a liter of normal saline bolus and 100 CCs per hour He really hasnt been drinking a lot Appreciate cardiology consult Review of Systems General: Fatigue, Malaise Neurological: Weakness Objective Exam Vital Signs Vital Signs Date Time Temp Pulse Resp B/P (MAP) Pulse Ox O2 Delivery O2 Flow Rate FiO2 03/15/20 20:30 Room Air 03/15/20 18:50 36.5 60 18 149/80 (103) 94 Capillary Refill : Less Than 3 Seconds General Appearance: No Apparent Distress, WD/WN, Chronically ill HEENT: PERRL/EOMI, Normal ENT Inspection, Pharynx Normal Neck: Full Range of Motion, Normal Inspection, Non Tender, Supple, Carotid Bruit Respiratory: Chest Non Tender, Lungs Clear, Normal Breath Sounds, No Accessory Muscle Use, No Respiratory Distress Cardiovascular: Regular Rate, Rhythm, No Edema, No Gallop, No JVD, No Murmur, Normal Peripheral Pulses Gastrointestinal: Normal Bowel Sounds, No Organomegaly, No Pulsatile Mass, Non Tender, Soft Back: Normal Inspection, No CVA Tenderness, No Vertebral Tenderness Extremity: Normal Capillary Refill, Normal Inspection, Normal Range of Motion, Non Tender, No Calf Tenderness, No Pedal Edema Neurologic/Psychiatric: Alert, Oriented x3, No Motor/Sensory Deficits, Normal Mood/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 FIM Transfers Therapy Code Descriptions/Definitions Functional [place] Measure: 0=Not Assessed/NA 4=Minimal Assistance 1=Total Assistance 5=Supervision or Setup 2=Maximal Assistance 6=Modified [place] 3=Moderate Assistance 7=Complete IndependenceSCALE: Activities may be completed with or without assistive devices. 2-Zycobxjeho-ftdljtm completes the activity by him/herself with no assistance f rom a helper. 5-Set-up or Clean-up Assistance-helper sets up or cleans up; patient completes activity. [place] assists only prior to or following the activity. 4-Supervision or Touching Assistance-helper provides verbal cues and/or touching/steadying and/or contact guard assistance as patient completes activity. Assistance may be provided throughout the activity or intermittently. 3-Partial/Moderate Assistance-helper does LESS THAN HALF the effort. [place] lifts, holds or supports trunk or limbs, but provides less than half the effort. 2-Substantial/Maximal Assistance-helper does MORE THAN HALF the effort. [place] lifts or holds trunk or limbs and provides more than half the effort. 6-Zxbrjrhyy-vcgpkx does ALL the effort. Patient does none of the effort to complete the activity. Or, the assistance of 2 or more helpers is required for the patient to complete the activity. If activity was not attempted, code reason: 7-Patient Refused. 9-Not Applicable-not attempted and the patient did not perform the activity before the current illness, exacerbation or injury. 10-Not Attempted due to Environmental Limitations-(lack of equipment, weather restraints, etc.). 88-Not Attempted due to Medical Conditions or Safety Concerns. Roll Left to Right (QC): 4 Sit to Lying (QC): 4 Sit to Stand (QC): 4 Chair/Ojf-tu-Ooilq Xfer(QC): 4 Car Transfer (QC): 3 Gait Training Does the Patient Walk?: Yes Distance: 50ft x2, 25ft Walk 10 feet (QC): 4 Walk 50 ft with 2 Turns(QC): 4 Walk 150 ft (QC): 88 Walking 10ft/uneven surface-QC: 88 Gait Persons Needed: 1 Gait Assistive Device: FWW Wheelchair Training Does the Pt Use a Wheelchair?: Yes Wheel 50 ft with 2 turns (QC): 5 Wheel 150 ft (QC): 6 Type of Wheelchair: Manual ( ) Stair Training 1 Step (curb) (QC): 3 4 Steps (QC): 88 12 Steps (QC): 88 Balance Picking up an Object (QC): 88 ADL-Treatment Eating (QC): 6 (Per clinical judgement and discussion with pt, pt independent with task.) Oral Hygiene (QC): 6 Shower/Bathe Self (QC): 4 Upper Body Dressing (QC): 5 Lower Body Dressing (QC): 4 On/Off Footwear (QC): 5 Toileting Hygiene (QC): 4 (SBA for safety.) Toilet Transfer (QC): 4 (SBA for safety.) Assessment/Plan Assessment and Plan Assess & Plan/Chief Complaint Assessment: CVA w/diploplia and balance dysfunction residual Pacemaker HLP HTN Chronic back pain THC use Plan: IRF protocol Home meds Monitor closely 03/10/20: IVF bolus Increase PO intake Monitor BP closely 03/11/20: Baclofen for hiccups IVF then DC Florinef for orthostasis 03/12/20: Florinef s/p IVF Monitor hiccups Baclofen and Thorazine 03/13/20: Improved Hiccups improved Monitor orthostasis closely 03/14/20: Monitor hiccups Improved othostasis Monitor cough ST to evaluate swallowing 03/15/20: Monitor cough ST eval swallowing for aspiration suspected Florinef (1) CVA (cerebral vascular accident) (2) Dyslipidemia Status: Acute (3) Pacemaker Status: Chronic (4) HTN (hypertension) Status: Acute (5) Left facial numbness Status: Acute (6) Hypertension Status: Acute KAREN LANDAVERDE DO Mar 15, 2020 08:46
[2020-03-15] MEDS: SENNA W/DOCUSATE (SENOKOT S) TABLET PO SCH ×2 (08:50→21:12)
[2020-03-15] MEDS: DOCUSATE SODIUM 100 MG (COLACE) CAP PO SCH ×2 (08:50→21:12)
--- NOTE | 2020-03-15 08:53 | Occupational Ther Daily Note ---
OT Current Status-Daily Note Subjective Pt alert, lying in bed. Pt agrees to therapy. No c/o pain at this time. Pt states that he is feeling better today. Orthostatic BP-supine 166/74; sitting 124/66; standing 121/59 Mental Status/Objective Patient Orientation: Person, Place, Time, Situation Attachments: IV ADL-Treatment Pt declines shower, sponge bath, changing clothing and oral care stating that he will complete tomorrow. Pt completed bed mobility independently. Pt able to don/doff socks/shoes by self after set up. Pt ambulated to bathroom using FWW. Pt had scissoring gait with ambulation, verbal cues to spread feet while ambulating. Pt had tendency to lean toward L side though did not c/o dizziness. Min A due to balance issues to transfer on/off toilet. SBA to manipulate clothing and cleanse self. Therapy Code Descriptions/Definitions Functional [place] Measure: 0=Not Assessed/NA 4=Minimal Assistance 1=Total Assistance 5=Supervision or Setup 2=Maximal Assistance 6=Modified [place] 3=Moderate Assistance 7=Complete IndependenceSCALE: Activities may be completed with or without assistive devices. 3-Oipwjshdou-awkhyon completes the activity by him/herself with no assistance from a helper. 5-Set-up or Clean-up Assistance-helper sets up or cleans up; patient completes activity. [place] assists only prior to or following the activity. 4-Supervision or Touching Assistance-helper provides verbal cues and/or to uching/steadying and/or contact guard assistance as patient completes activity. Assistance may be provided throughout the activity or intermittently. 3-Partial/Moderate Assistance-helper does LESS THAN HALF the effort. [place] lifts, holds or supports trunk or limbs, but provides less than half the effort. 2-Substantial/Maximal Assistance-helper does MORE THAN HALF the effort. [place] lifts or holds trunk or limbs and provides more than half the effort. 1-Tyypbxjgv-dzuwtb does ALL the effort. Patient does none of the effort to complete the activity. Or, the assistance of 2 or more helpers is required for the patient to complete the activity. If activity was not attempted, code reason: 7-Patient Refused. 9-Not Applicable-not attempted and the patient did not perform the activity before the current illness, exacerbation or injury. 10-Not Attempted due to Environmental Limitations-(lack of equipment, weather restraints, etc.). 88-Not Attempted due to Medical Conditions or Safety Concerns. On/Off Footwear: 5 Toileting Hygiene (QC): 4 Toilet Transfer (QC): 3 Other Treatment Pt propelled w/c to therapy gym independently. Eye patch in place for double vision. Pt completed arm bike for 15 min at 15 asencio resistance to increase strength and activity tolerance for daily functional tasks. Resistive clothes pins to increase human relations professor and pinch strength for fine motor control. Pt propelled w/c with B UE long term to room then B LE's rest of way to room. Pt lying in bed at end of therapy with call light/phone in reach. All needs met in room. OT Greens Planter Goals Long-Term Goals Time Frame: Mar 19, 2020 Eating (QC): 6 Oral Hygiene (QC): 6 Toileting Hygiene (QC): 6 Shower/Bathe Self (QC): 6 Upper Body Dressing (QC): 6 Lower Body Dressing (QC): 6 On/Off Footwear (QC): 6 1=Demonstrate adherence to instructed precautions during ADL tasks. 2=Patient will verbalize/demonstrate understanding of assistive devices/modifications for ADL. 3=Patient will improve strength/tolerance for activity to enable patient to perform ADL's. OT Education/Plan Problem List/Assessment Assessment: Decreased Activ Tolerance, Decreased Safety Aware, Decreased UE Strength, Impaired Funct Balance, Impaired Self-Care Skills Discharge Recommendations Plan/Recommendations: Continue POC Treatment Plan/Plan of Care Patient would benefit from OT for education, treatment and training to promote independence in ADL's, mobility, safety and/or upper extremity function for ADL's. Plan of Care: ADL Retraining, Functional Mobility, UE Funct Exercise/Act Treatment Duration: Mar 19, 2020 Frequency: Modified Program (IRF) (09/09) Estimated Hrs Per Day: 1.5 hours per day (1-1.5) Agreement: Yes Rehab Potential: Fair Time/GCodes Start Time: 07:30 Stop Time: 09:00 Total Time Billed (hr/min): 90 Billed Treatment Time 1 visit-FA 2 (30 min) EX 3 (40 min) ADL 1 (20 min) YULIA OROZCO Mar 15, 2020 08:53
[2020-03-15] MEDS: ASPIRIN E.C. 325 MG (ECOTRIN) TABLET PO SCH (08:57)
[2020-03-15] MEDS: FLUDROCORTISONE 0.1 MG (FLORINEF) TAB PO SCH (08:57)
[2020-03-15] MEDS: CARVEDILOL 3.125 MG (COREG) TABLET PO SCH ×2 (08:57→21:05)
[2020-03-15] MEDS: lisINopril 10 MG (PRINIVIL) TABLET PO SCH (08:57)
[2020-03-15] MEDS: BACLOFEN 10 MG (LIORESAL) TAB PO SCH ×3 (08:57→21:05)
[2020-03-15] MEDS: chlorproMAZINE 25 MG (THORAZINE) TAB PO PRN (08:57)
--- NOTE | 2020-03-15 09:56 | Physical Therapy Daily Note ---
PT Daily Note-Current Subjective Patient in bed pre tx, agrees to PT, has no complaints of pain. Appearance Patient in bed post tx with nurse call, phone, tray, all needs met. Mental Status Patient Orientation: Person, Place, Situation uses eye patch due to double vision Transfers SCALE: Activities may be completed with or without assistive devices. 6-Uzerezqzfy-krdwiez completes the activity by him/herself with no assistance from a helper. 5-Set-up or Clean-up Assistance-helper sets up or cleans up; patient completes activity. [place] assists only prior to or following the activity. 4-Supervision or Touching Assistance-helper provides verbal cues and/or touching/steadying and/or contact guard assistance as patient completes activity. Assistance may be provided throughout the activity or intermittently. 3-Partial/Moderate Assistance-helper does LESS THAN HALF the effort. [place] lifts, holds or supports trunk or limbs, but provides less than half the effort. 2-Substantial/Maximal Assistance-helper does MORE THAN HALF the effort. [place] lifts or holds trunk or limbs and provides more than half the effort. 3-Jrvedjgxh-kbjpvk does ALL the effort. Patient does none of the effort to complete the activity. Or, the assistance of 2 or more helpers is required for the patient to complete the activity. If activity was not attempted, code reason: 7-Patient Refused. 9-Not Applicable-not attempted and the patient did not perform the activity before the current illness, exacerbation or injury. 10-Not Attempted due to Environmental Limitations-(lack of equipment, weather restraints, etc.). 88-Not Attempted due to Medical Conditions or Safety Concerns. Roll Left & Right (QC): 6 Sit to Lying (QC): 6 Lying to Sitting/Side of Bed(Q: 6 Sit to Stand (QC): 4 Chair/Ylp-hs-Wknje Xfer(QC): 3 Weight Bearing Right Lower Extremity: Right Full Weight Bearing Left Lower Extremity: Left Full Weight Bearing Gait Training Distance: 160', 120' Walk 10 feet (QC): 3 Walk 50 ft with 2 Turns(QC): 3 Walk 150 ft (QC): 3 Gait Persons Needed: 1 Gait Assistive Device: FWW Patient leans to the left side, needs assist with weight shifting especially when turning to the right side Exercises Standing: Heel/toe raises, Mini squats, Step-ups Standing Reps: 15 NuStep Minutes: 15 NuStep Workload: 5 Neuromuscular SLS each side for 1 min in parallel bars with hands hovering over bars, patient leans significantly to the left side, has difficulty getting to neutral Treatments bed mobility and transfers, ambulation, LE strengthening, balance training Assessment Current Status: Fair Progress improving endurance overall but patient very fatigued after tx. PT Short Term Goals Short Term Goals Time Frame: Mar 16, 2020 Roll Left & Right: 6 Sit to lyin Lying to sitting on side of be: 6 Sit to stand: 4 Chair/wiz-cz-tbedd transfer: 4 Walk 10 feet: 4 Walk 50 feet with two turns: 4 Walk 150 feet: 4 PT Project Coach Goals Fdc Goals PT Fdc Goals Time Frame: Mar 30, 2020 Roll Left & Right (QC): 6 Sit to Lying (QC): 6 Lying-Sitting on Side/Bed(QC): 6 Sit to Stand (QC): 4 (SBA) Chair/Ntx-cd-Glvqx Xfer(QC): 4 (SBA) Toilet Transfer (QC): 4 (SBA) Car Transfer (QC): 4 (SBA) Does the Patient Walk: Yes Walk 10 feet (QC): 4 (SBA) Walk 50ft with 2 Turns (QC): 4 (SBA) Walk 150 ft (QC): 4 (SBA) Walking 10ft on Uneven Surface: 4 (CGA) 1 Step (curb) (QC): 4 (CGA) 4 Steps (QC): 4 (CGA) 12 Steps (QC): 88 Picking up an Object (QC): 4 (CGA) Wheel 50 feet with 2 turns (QC: 6 Wheel 150 feet: 6 PT Plan Problem List Problem List: Activity Tolerance, Functional Strength, Safety, Balance, Gait, Transfer, Bed Mobility, ROM Treatment/Plan Treatment Plan: Continue Plan of Care Treatment Plan: Bed Mobility, Education, Functional Activity Patria, Functional Strength, Group Therapy, Gait, Safety, Therapeutic Exercise, Transfers Treatment Duration: Mar 30, 2020 Frequency: At least 5 of 7 days/Wk (IRF) Estimated Hrs Per Day: 1.5 hours per day Patient and/or Family Agrees t: Yes Safety Risks/Education Patient Education: Gait Training, Transfer Techniques, Correct Positioning, Safety Issues Teaching Recipient: Patient Teaching Methods: Demonstration, Discussion Response to Teaching: Reinforcement Needed Time/GCodes Time In: 0900 Time Out: 1000 Total Billed Treatment Time: 60 Total Billed Treatment 1 visit GT 20' EX 40' SHIV HERNANDEZ PT Mar 15, 2020 09:56
[2020-03-15] MEDS: guaiFENesin/CODEINE (ROBITUSSIN AC) 10ML UDC PO PRN (13:30)
--- NOTE | 2020-03-15 13:46 | Physical Therapy Daily Note ---
PT Daily Note-Current Subjective Patient in bed pre tx, agrees to PT, has no complaints of pain but would like cough medicine, nurse notified and she got it for him. Appearance Patient in bed post tx with nurse call, phone, tray, all needs met. Mental Status Patient Orientation: Person, Place, Situation Transfers SCALE: Activities may be completed with or without assistive devices. 5-Fkvabubpjx-nvvfaqw completes the activity by him/herself with no assistance from a helper. 5-Set-up or Clean-up Assistance-helper sets up or cleans up; patient completes activity. [place] assists only prior to or following the activity. 4-Supervision or Touching Assistance-helper provides verbal cues and/or touching/steadying and/or contact guard assistance as patient completes activity. Assistance may be provided throughout the activity or intermittently. 3-Partial/Moderate Assistance-helper does LESS THAN HALF the effort. [place] lifts, holds or supports trunk or limbs, but provides less than half the effort. 2-Substantial/Maximal Assistance-helper does MORE THAN HALF the effort. [place] lifts or holds trunk or limbs and provides more than half the effort. 2-Sgnsynnfk-kazyzc does ALL the effort. Patient does none of the effort to complete the activity. Or, the assistance of 2 or more helpers is required for the patient to complete the activity. If activity was not attempted, code reason: 7-Patient Refused. 9-Not Applicable-not attempted and the patient did not perform the activity before the current illness, exacerbation or injury. 10-Not Attempted due to Environmental Limitations-(lack of equipment, weather restraints, etc.). 88-Not Attempted due to Medical Conditions or Safety Concerns. Roll Left & Right (QC): 6 Sit to Lying (QC): 6 Lying to Sitting/Side of Bed(Q: 6 Sit to Stand (QC): 4 Chair/Ang-on-Kdcyc Xfer(QC): 4 Weight Bearing Right Lower Extremity: Right Full Weight Bearing Left Lower Extremity: Left Full Weight Bearing Gait Training Distance: 400', 200', 150' Walk 10 feet (QC): 4 Walk 50 ft with 2 Turns(QC): 4 Walk 150 ft (QC): 4 Gait Persons Needed: 1 Gait Assistive Device: FWW Patient ambulates slowly, has left neglect, leans to the left side, needs steadying assist Treatments ambulation Assessment Current Status: Fair Progress improving endurance, slightly better balance PT Short Term Goals Short Term Goals Time Frame: Mar 16, 2020 Roll Left & Right: 6 Sit to lyin Lying to sitting on side of be: 6 Sit to stand: 4 Chair/bep-dg-gzaet transfer: 4 Walk 10 feet: 4 Walk 50 feet with two turns: 4 Walk 150 feet: 4 PT Media Sales Consultant Goals Senior Living Goals PT Senior Living Goals Time Frame: Mar 30, 2020 Roll Left & Right (QC): 6 Sit to Lying (QC): 6 Lying-Sitting on Side/Bed(QC): 6 Sit to Stand (QC): 4 (SBA) Chair/Yhc-hl-Dxlbu Xfer(QC): 4 (SBA) Toilet Transfer (QC): 4 (SBA) Car Transfer (QC): 4 (SBA) Does the Patient Walk: Yes Walk 10 feet (QC): 4 (SBA) Walk 50ft with 2 Turns (QC): 4 (SBA) Walk 150 ft (QC): 4 (SBA) Walking 10ft on Uneven Surface: 4 (CGA) 1 Step (curb) (QC): 4 (CGA) 4 Steps (QC): 4 (CGA) 12 Steps (QC): 88 Picking up an Object (QC): 4 (CGA) Wheel 50 feet with 2 turns (QC: 6 Wheel 150 feet: 6 PT Plan Problem List Problem List: Activity Tolerance, Functional Strength, Safety, Balance, Gait, Transfer, Bed Mobility, ROM Treatment/Plan Treatment Plan: Continue Plan of Care Treatment Plan: Bed Mobility, Education, Functional Activity Patria, Functional Strength, Group Therapy, Gait, Safety, Therapeutic Exercise, Transfers Treatment Duration: Mar 30, 2020 Frequency: At least 5 of 7 days/Wk (IRF) Estimated Hrs Per Day: 1.5 hours per day Patient and/or Family Agrees t: Yes Safety Risks/Education Patient Education: Gait Training, Transfer Techniques, Correct Positioning, Safety Issues Teaching Recipient: Patient Teaching Methods: Demonstration, Discussion Response to Teaching: Reinforcement Needed Time/GCodes Time In: 1315 Time Out: 1345 Total Billed Treatment Time: 30 Total Billed Treatment 1 visit GT 30' SHIV HERNANDEZ PT Mar 15, 2020 13:46
--- NOTE | 2020-03-15 15:43 | ST Dysphagia Evaluation ---
Speech Evaluation-General Medical Diagnosis CVA Onset Date: Mar 06, 2020 Therapy Diagnosis Therapy Diagnosis: Oropharyngeal Dysphagia Precautions Precautions: Aspiration Referral Referring Physician: Dr. Chowdhury Medical History Pertinent Medical History: HTN Reviewed History: Yes Social History Current Living Status: Spouse Speech PLF/Current-Dysphagia Prior Level of Function Patient states he ate whatever he wanted to when he was still at home. Subjective Patient cooperated with BDE. Cognitive Status Patient Orientation: Person, Place, Situation Oral Motor Skills Denture Type: Full- Upper & Lower Current Food Consistancy: Regular Ability to Follow Directions: Good Oral Expression Ability: Mild Impairment Voice Voice Phonatory-Based Quality: Normal Voice Pitch: Normal Voice Loudness: Normal Face Facial Symmetry: Asymmetrical Oral-Facial Assessment Oral-Facial Dentition: Normal Labial Seal Description: Droops Left Facial droop is very slight. Lingual Protrusion: Normal Lingual ROM: Normal Lingual Strength: Normal Pharynx Velopharyngeal Move.: Normal Volitional Dry Swallow: Yes Voluntary Cough: Yes Can Clear Throat Volitionally: Yes Dysphagia Evaluation Consistencies Presented: Regular, Thin Liquid, Mechanical Soft, Pureed Oral phase is within normal range of function. Pharyngeal phase is within normal function for soft, moist foods. Funct. Velo/Pharyngeal Symptom: Cough After Swallow Patient was reported by other therapists that he was observed to choke on liquids via straw and pudding. Dietary Recommendations: Mechanical Soft Dysphagia II diet with ground moist meats. Swallowing Precautions: Alternate Liquids/Solids, Chin Tuck, Decreased Bolus 1/2 Tsp, Liquids from Cup, Liquids from Spoon, No Straw, Small Bites and Sips, Sitting Upright 90 Degrees, Sitting 90 Degrees 30 Post Intake Dysphagia Evaluation Summary Patient was referred for a follow up due to choking incidents noted by other therapists. Patient was not observed by clinician with trials of foods, however he has had incidents reported with straws over the weekend as well as pudding this morning. Patient is recommended for a downgrade to Dysphagia II with thin liquids (no Straws). This has been reported to his nurse and written on his dry erase board. ST will follow up with patient on Sunday. Barriers to Learning Patient's recent CVA Speech Short Term Goals Short Term Goals Short Term Goals 1) Patient will tolerate least restrictive diet level without s/s of aspiration at 90% or greater. 2) Patient will utilize compensatory strategies as trained for safe oral intake at 90% or greater. Speech Care Home Goals Care Home Goals Patient will maintain adequate nutrition/hydration via safe effective swallow function. Speech-Plan Patient/Family Goals Patient/Family Goals: Patient plans on returning home where he lives with his . Treatment Plan Speech Therapy Treatment Plan: Continue Plan of Care Treatment Duration: Mar 10, 2020 Frequency: 4 times per week (Patient will receive skilled ST 4-5x per week.) Estimated Hrs Per Day: .5 hour per day Rehab Potential: Fair Barriers to Learning: Reecent affects of CVA Safety Risks/Education Teaching Recipient: Patient Teaching Methods: Discussion Response to Teaching: Verbalize Understanding Time Speech Therapy Time In: 15:15 Speech Therapy Time Out: 15:35 Total Billed Time: 20 Billed Treatment Time 1, LARON, VICTOR MANUEL Cummings Mar 15, 2020 15:43
[2020-03-15] MEDS: ENOXAPARIN 40 MG/0.4 ML (LOVENOX) SYR SC SCH (17:16)
[2020-03-15 18:50] VITALS: BP 149/80
[2020-03-15] MEDS: ALPRAZolam 0.25 MG (XANAX) TAB PO PRN (21:04)
[2020-03-15] MEDS: MELATONIN 3 MG TABLET PO PRN (21:04)
[2020-03-15] MEDS: ZOLPIDEM 5 MG (AMBIEN) TAB PO SCH (21:05)
[2020-03-16 06:17] VITALS: BP 152/71
--- NOTE | 2020-03-16 08:46 | PM&R Progress Note ---
Subjective HPI/CC On Admission Date Seen by Provider: Mar 16, 2020 Time Seen by Provider: 08:30 Subjective/Events-last exam 03/16/20: Pt doing very well Sleeping pretty well Speech therapy working with him with dysphasia 2 diet Orthostasis much improved 03/15/20: Pt much improved Denies any new issues Speech therapy will see him for dysphagia and micro-aspiration risk Florinef seems to be helping with the orthostasis Cough is frequent but lungs are clear 03/14/20: Improved overall Able to ambulate without orthostasis now Diploplia noted Flornief maintained BM yesterday COugh is noted will have ST evaluate his swallowing tomorrow for microaspiration? Thorazine and Baclofen and Xanax has really helped the hiccups 03/13/20: Improved status Was able to stand and do well Florinef helping along with KALEB and JUAN ANTONIO wraps Cough is sometimes productive CXR negative no fever Baclofen and Thorazine improved hiccups 03/12/20: Hiccups still present IVF heplocked Creat 1.1 now after IVF Baclofen for hiccups Robitussin AC 03/11/20: Will HLIVF later today Florinef will be started to help with orthostasis CXR done for cough and that was normal Baclofen will be given for hiccups 03/10/20: Thorazine is helping the hiccups BP was quite a bit lower this morning, held all of his meds, cardiology was consulted and he did have an episode of severe balance issues His BP was 89/41 , will give a liter of normal saline bolus and 100 CCs per hour He really hasnt been drinking a lot Appreciate cardiology consult Review of Systems General: Fatigue, Malaise HEENT: Dysphasia Pulmonary: Cough Neurological: Weakness Objective Exam Vital Signs Vital Signs Date Time Temp Pulse Resp B/P (MAP) Pulse Ox O2 Delivery O2 Flow Rate FiO2 03/16/20 21:20 Room Air 03/16/20 18:08 36.6 99 18 100/62 (75) 99 Capillary Refill : Less Than 3 Seconds General Appearance: No Apparent Distress, WD/WN, Chronically ill HEENT: PERRL/EOMI, Normal ENT Inspection, Pharynx Normal Neck: Full Range of Motion, Normal Inspection, Non Tender, Supple, Carotid Bruit Respiratory: Chest Non Tender, Lungs Clear, Normal Breath Sounds, No Accessory Muscle Use, No Respiratory Distress Cardiovascular: Regular Rate, Rhythm, No Edema, No Gallop, No JVD, No Murmur, Normal Peripheral Pulses Gastrointestinal: Normal Bowel Sounds, No Organomegaly, No Pulsatile Mass, Non Tender, Soft Back: Normal Inspection, No CVA Tenderness, No Vertebral Tenderness Extremity: Normal Capillary Refill, Normal Inspection, Normal Range of Motion, Non Tender, No Calf Tenderness, No Pedal Edema Neurologic/Psychiatric: Alert, Oriented x3, No Motor/Sensory Deficits, Normal Mood/Affect, psychiatric clinical nurse specialist II-XII Norm as Tested, Abnormal Gait, Other (double vision) Skin: Normal Color, Warm/Dry Lymphatic: No Adenopathy Results/Procedures Lab Patient resulted labs reviewed. FIM Transfers Therapy Code Descriptions/Definitions Functional [place] Measure: 0=Not Assessed/NA 4=Minimal Assistance 1=Total Assistance 5=Supervision or Setup 2=Maximal Assistance 6=Modified [place] 3=Moderate Assistance 7=Complete IndependenceSCALE: Activities may be completed with or without assistive devices. 5-Dfnxmqftvo-bymfyeu completes the activity by him/herself with no assistance from a helper. 5-Set-up or Clean-up Assistance-helper sets up or cleans up; patient completes activity. [place] assists only prior to or following the activity. 4-Supervision or Touching Assistance-helper provides verbal cues and/or touching/steadying and/or contact guard assistance as patient completes activity. Assistance may be provided throughout the activity or intermittently. 3-Partial/Moderate Assistance-helper does LESS THAN HALF the effort. [place] lift s, holds or supports trunk or limbs, but provides less than half the effort. 2-Substantial/Maximal Assistance-helper does MORE THAN HALF the effort. [place] lifts or holds trunk or limbs and provides more than half the effort. 5-Pgpxsptly-yoqasf does ALL the effort. Patient does none of the effort to complete the activity. Or, the assistance of 2 or more helpers is required for the patient to complete the activity. If activity was not attempted, code reason: 7-Patient Refused. 9-Not Applicable-not attempted and the patient did not perform the activity before the current illness, exacerbation or injury. 10-Not Attempted due to Environmental Limitations-(lack of equipment, weather restraints, etc.). 88-Not Attempted due to Medical Conditions or Safety Concerns. Roll Left to Right (QC): 6 Sit to Lying (QC): 6 Sit to Stand (QC): 4 Chair/Yao-hm-Oiged Xfer(QC): 4 Car Transfer (QC): 3 Gait Training Does the Patient Walk?: Yes Distance: 400', 200', 150' Walk 10 feet (QC): 4 Walk 50 ft with 2 Turns(QC): 4 Walk 150 ft (QC): 4 Walking 10ft/uneven surface-QC: 88 Gait Persons Needed: 1 Gait Assistive Device: FWW Wheelchair Training Does the Pt Use a Wheelchair?: Yes Wheel 50 ft with 2 turns (QC): 5 Wheel 150 ft (QC): 6 Type of Wheelchair: Manual ( ) Stair Training 1 Step (curb) (QC): 3 4 Steps (QC): 88 12 Steps (QC): 88 Balance Picking up an Object (QC): 88 ADL-Treatment Eating (QC): 6 (Per clinical judgement and discussion with pt, pt independent with task.) Oral Hygiene (QC): 6 Shower/Bathe Self (QC): 4 Upper Body Dressing (QC): 5 Lower Body Dressing (QC): 4 On/Off Footwear (QC): 5 Toileting Hygiene (QC): 4 Toilet Transfer (QC): 3 Assessment/Plan Assessment and Plan Assess & Plan/Chief Complaint Assessment: CVA w/diploplia and balance dysfunction residual Pacemaker HLP HTN Chronic back pain THC use Plan: IRF protocol Home meds Monitor closely 03/10/20: IVF bolus Increase PO intake Monitor BP closely 03/11/20: Baclofen for hiccups IVF then DC Florinef for orthostasis 03/12/20: Florinef s/p IVF Monitor hiccups Baclofen and Thorazine 03/13/20: Improved Hiccups improved Monitor orthostasis closely 03/14/20: Monitor hiccups Improved othostasis Monitor cough ST to evaluate swallowing 03/15/20: Monitor cough ST eval swallowing for aspiration suspected Florinef 03/16/20: Dysphagia 2 diet Monitor pain Monitor orthostasis (1) CVA (cerebral vascular accident) (2) Dyslipidemia Status: Acute (3) Pacemaker Status: Chronic (4) HTN (hypertension) Status: Acute (5) Left facial numbness Status: Acute (6) Hypertension Status: Acute KAREN LANDAVERDE DO Mar 16, 2020 08:46
--- NOTE | 2020-03-16 08:57 | Occupational Ther Daily Note ---
OT Current Status-Daily Note Subjective Pt alert, sitting in recliner. Pt agrees to therapy. Pt states that he wants to leave tomorrow. That his will be able to take care of him. Mental Status/Objective Patient Orientation: Person, Place, Time, Situation Attachments: IV ADL-Treatment Pt agrees to shower. Pt ambulates into bathroom with min A due to verbal cues to keep feet apart and if not pt leans toward L, loses balance. Toilet transfer CGA using FWW and grabbars. CGA to manipulate clothing and completes hygiene sitting on toilet by self. Pt doffs clothing by self. Pt transfers in/out of shower with CGA using FWW and grabbars. Pt completes shower independently as long as pt sits to cleanse all areas, leaning side to side to reach buttocks. Sitting at sink, pt completes grooming and oral care independently. Pt able to don upper body clothing and footwear by self after set up. Threads pants over feet independently then SBA to hike pants over hips. Therapy Code Descriptions/Definitions Functional Neeses Measure: 0=Not Assessed/NA 4=Minimal Assistance 1=Total Assistance 5=Supervision or Setup 2=Maximal Assistance 6=Modified Neeses 3=Moderate Assistance 7=Complete IndependenceSCALE: Activities may be completed with or without assistive devices. 4-Oidbtgcluk-dwxtycc completes the activity by him/herself with no assistance from a helper. 5-Set-up or Clean-up Assistance-helper sets up or cleans up; patient completes activity. Lynn assists only prior to or following the activity. 4-Supervision or Touching Assistance-helper provides verbal cues and/or touching/steadying and/or contact guard assistance as patient completes activity. Assistance may be provided throughout the activity or intermittently. 3-Partial/Moderate Assistance-helper does LESS THAN HALF the effort. Lynn lifts, holds or supports trunk or limbs, but provides less than half the effort. 2-Substantial/Maximal Assistance-helper does MORE THAN HALF the effort. Lynn lifts or holds trunk or limbs and provides more than half the effort. 5-Wbrjdccbr-xfdtmo does ALL the effort. Patient does none of the effort to complete the activity. Or, the assistance of 2 or more helpers is required for the patient to complete the activity. If activity was not attempted, code reason: 7-Patient Refused. 9-Not Applicable-not attempted and the patient did not perform the activity before the current illness, exacerbation or injury. 10-Not Attempted due to Environmental Limitations-(lack of equipment, weather restraints, etc.). 88-Not Attempted due to Medical Conditions or Safety Concerns. Eating (QC): 6 (Pt able to open containers and packages by self then use regular utensils to eat.) Oral Hygiene (QC): 6 Shower/Bathe Self (QC): 6 (Complete all bathing in sitting.) Upper Body Dressing (QC): 5 Lower Body Dressing (QC): 4 On/Off Footwear: 5 Toileting Hygiene (QC): 4 Toilet Transfer (QC): 4 Other Treatment Pt ambulated using FWW to therapy gym with reminders to maintain position of L foot. Pt completed arm bike for 15 min at 20 asencio resistance to increase strength and activity tolerance for daily functional tasks. Pt then ambulated back to room and transferred into w/c. Pt propelled w/c around ARU with B UE only to increase B UE strength. After session, pt lying in bed with call light/phone in reach. All needs met in room. OT Newspaper Reporter Goals [facility] Goals Time Frame: Mar 19, 2020 Eating (QC): 6 (met) Oral Hygiene (QC): 6 (met) Toileting Hygiene (QC): 6 Shower/Bathe Self (QC): 6 (met) Upper Body Dressing (QC): 6 Lower Body Dressing (QC): 6 On/Off Footwear (QC): 6 1=Demonstrate adherence to instructed precautions during ADL tasks. 2=Patient will verbalize/demonstrate understanding of assistive devices/modifications for ADL. 3=Patient will improve strength/tolerance for activity to enable patient to perform ADL's. OT Education/Plan Problem List/Assessment Assessment: Decreased Activ Tolerance, Impaired Funct Balance Discharge Recommendations Plan/Recommendations: Continue POC Treatment Plan/Plan of Care Patient would benefit from OT for education, treatment and training to promote independence in ADL's, mobility, safety and/or upper extremity function for ADL's. Plan of Care: ADL Retraining, Functional Mobility, UE Funct Exercise/Act Treatment Duration: Mar 19, 2020 Frequency: Modified Program (IRF) (09/09) Estimated Hrs Per Day: 1.5 hours per day (1-1.5) Agreement: Yes Rehab Potential: Fair Time/GCodes Start Time: 07:30 Stop Time: 09:00 Total Time Billed (hr/min): 90 Billed Treatment Time 1 visit-ADL 3 (45 min) FA 2 (30 min) EX 1 (15 min) YULIA OROZCO Mar 16, 2020 08:57
[2020-03-16] MEDS: polyethylene glycoL POWDER 17 GM (MIRALAX) PACK PO SCH ×2 (09:00→21:25)
[2020-03-16] MEDS: DOCUSATE SODIUM 100 MG (COLACE) CAP PO SCH ×2 (09:00→21:19)
[2020-03-16] MEDS: SENNA W/DOCUSATE (SENOKOT S) TABLET PO SCH ×2 (09:00→21:19)
[2020-03-16] MEDS: CARVEDILOL 3.125 MG (COREG) TABLET PO SCH ×2 (09:33→21:17)
[2020-03-16] MEDS: BACLOFEN 10 MG (LIORESAL) TAB PO SCH ×3 (09:33→21:18)
[2020-03-16] MEDS: FLUDROCORTISONE 0.1 MG (FLORINEF) TAB PO SCH (09:33)
[2020-03-16] MEDS: lisINopril 10 MG (PRINIVIL) TABLET PO SCH (09:33)
[2020-03-16] MEDS: ASPIRIN E.C. 325 MG (ECOTRIN) TABLET PO SCH (09:33)
[2020-03-16 09:34] VITALS: BP 121/73
--- NOTE | 2020-03-16 09:58 | Physical Therapy Daily Note ---
PT Daily Note-Current Subjective Patient in bed pre tx, agrees to PT, has no complaints of pain. Appearance Patient in bed post tx with nurse call, phone, tray, all needs met. Mental Status Patient Orientation: Person, Place, Situation Transfers SCALE: Activities may be completed with or without assistive devices. 2-Nizuimiive-nsdunxm completes the activity by him/herself with no assistance from a helper. 5-Set-up or Clean-up Assistance-helper sets up or cleans up; patient completes activity. [place]man assists only prior to or following the activity. 4-Supervision or Touching Assistance-helper provides verbal cues and/or touching/steadying and/or contact guard assistance as patient completes activity. Assistance may be provided throughout the activity or intermittently. 3-Partial/Moderate Assistance-helper does LESS THAN HALF the effort. Pitman lifts, holds or supports trunk or limbs, but provides less than half the effort. 2-Substantial/Maximal Assistance-helper does MORE THAN HALF the effort. [place]man lifts or holds trunk or limbs and provides more than half the effort. 9-Ngccbzmnt-xuheel does ALL the effort. Patient does none of the effort to complete the activity. Or, the assistance of 2 or more helpers is required for the patient to complete the activity. If activity was not attempted, code reason: 7-Patient Refused. 9-Not Applicable-not attempted and the patient did not perform the activity before the current illness, exacerbation or injury. 10-Not Attempted due to Environmental Limitations-(lack of equipment, weather restraints, etc.). 88-Not Attempted due to Medical Conditions or Safety Concerns. Roll Left & Right (QC): 6 Sit to Lying (QC): 6 Lying to Sitting/Side of Bed(Q: 6 Sit to Stand (QC): 4 Chair/Mzj-zk-Sqjji Xfer(QC): 4 Weight Bearing Right Lower Extremity: Right Full Weight Bearing Left Lower Extremity: Left Full Weight Bearing Gait Training Distance: 300'x2, 120', 50'x2 Walk 10 feet (QC): 4 Walk 50 ft with 2 Turns(QC): 4 Walk 150 ft (QC): 4 Gait Persons Needed: 1 Gait Assistive Device: FWW Ambulates 300'x2 and 120' with rolling walker, leans to the left side, needs steadying balance assist, short quick steps with left leg since he is leaning on it. Practiced using a quad cane 50'x2, cues for sequence, leaned less to the left side. Exercises NuStep Minutes: 15 NuStep Workload: 5 Treatments transfers, ambulation, LE strengthening Assessment Current Status: Fair Progress Patient coughed a lot on meds nurse gave him during tx. Leaned a little more to the left side during ambulation today. PT Short Term Goals Short Term Goals Time Frame: Mar 16, 2020 Roll Left & Right: 6 Sit to lyin Lying to sitting on side of be: 6 Sit to stand: 4 Chair/gim-cp-ylrbp transfer: 4 Walk 10 feet: 4 Walk 50 feet with two turns: 4 Walk 150 feet: 4 PT Polls Or Surveys Interviewer Goals Polls Or Surveys Interviewer Goals PT Polls Or Surveys Interviewer Goals Time Frame: Mar 30, 2020 Roll Left & Right (QC): 6 Sit to Lying (QC): 6 Lying-Sitting on Side/Bed(QC): 6 Sit to Stand (QC): 4 (SBA) Chair/Jcj-hl-Flsqz Xfer(QC): 4 (SBA) Toilet Transfer (QC): 4 (SBA) Car Transfer (QC): 4 (SBA) Does the Patient Walk: Yes Walk 10 feet (QC): 4 (SBA) Walk 50ft with 2 Turns (QC): 4 (SBA) Walk 150 ft (QC): 4 (SBA) Walking 10ft on Uneven Surface: 4 (CGA) 1 Step (curb) (QC): 4 (CGA) 4 Steps (QC): 4 (CGA) 12 Steps (QC): 88 Picking up an Object (QC): 4 (CGA) Wheel 50 feet with 2 turns (QC: 6 Wheel 150 feet: 6 PT Plan Problem List Problem List: Activity Tolerance, Functional Strength, Safety, Balance, Gait, Transfer Treatment/Plan Treatment Plan: Continue Plan of Care Treatment Plan: Bed Mobility, Education, Functional Activity Patria, Functional Strength, Group Therapy, Gait, Safety, Therapeutic Exercise, Transfers Treatment Duration: Mar 30, 2020 Frequency: At least 5 of 7 days/Wk (IRF) Estimated Hrs Per Day: 1.5 hours per day Patient and/or Family Agrees t: Yes Safety Risks/Education Patient Education: Gait Training, Transfer Techniques, Correct Positioning, Safety Issues Teaching Recipient: Patient Teaching Methods: Demonstration, Discussion Response to Teaching: Reinforcement Needed Time/GCodes Time In: 0900 Time Out: 1000 Total Billed Treatment Time: 60 Total Billed Treatment 1 visit GT 45' EX 15' SHIV HERNANDEZ PT Mar 16, 2020 09:58
--- NOTE | 2020-03-16 14:27 | Physical Therapy Daily Note ---
PT Daily Note-Current Subjective Patient in bed pre tx, agrees to PT, has no complaints of pain. Appearance Patient in sitting EOB post tx, has nurse call, phone, tray, social services technician in room to talk to him. Mental Status Patient Orientation: Person, Place, Situation Transfers SCALE: Activities may be completed with or without assistive devices. 0-Rgmeuikjiu-xzmthld completes the activity by him/herself with no assistance from a helper. 5-Set-up or Clean-up Assistance-helper sets up or cleans up; patient completes activity. [place] assists only prior to or following the activity. 4-Supervision or Touching Assistance-helper provides verbal cues and/or touching/steadying and/or contact guard assistance as patient completes activity. Assistance may be provided throughout the activity or intermittently. 3-Partial/Moderate Assistance-helper does LESS THAN HALF the effort. [place] lif ts, holds or supports trunk or limbs, but provides less than half the effort. 2-Substantial/Maximal Assistance-helper does MORE THAN HALF the effort. [place] lifts or holds trunk or limbs and provides more than half the effort. 3-Oingujisb-mojjue does ALL the effort. Patient does none of the effort to complete the activity. Or, the assistance of 2 or more helpers is required for the patient to complete the activity. If activity was not attempted, code reason: 7-Patient Refused. 9-Not Applicable-not attempted and the patient did not perform the activity before the current illness, exacerbation or injury. 10-Not Attempted due to Environmental Limitations-(lack of equipment, weather restraints, etc.). 88-Not Attempted due to Medical Conditions or Safety Concerns. Roll Left & Right (QC): 6 Lying to Sitting/Side of Bed(Q: 6 Sit to Stand (QC): 4 Chair/Bcm-am-Mukrp Xfer(QC): 4 Weight Bearing Right Lower Extremity: Right Full Weight Bearing Left Lower Extremity: Left Full Weight Bearing Gait Training Distance: 300'x2, 120' Walk 10 feet (QC): 4 Walk 50 ft with 2 Turns(QC): 4 Walk 150 ft (QC): 4 Gait Assistive Device: FWW leans to the left significantly on occasion, does better when he concentrates Exercises LAQ alternating for 5 min with 2# ankle weights Treatments LE exercise, ambulation Assessment Current Status: Poor Progress worse endurance today, leans more to the left side PT Short Term Goals Short Term Goals Time Frame: Mar 16, 2020 Roll Left & Right: 6 Sit to lyin Lying to sitting on side of be: 6 Sit to stand: 4 Chair/feo-df-fblqt transfer: 4 Walk 10 feet: 4 Walk 50 feet with two turns: 4 Walk 150 feet: 4 PT Security System Engineer Goals [facility] Goals PT [facility] Goals Time Frame: Mar 30, 2020 Roll Left & Right (QC): 6 Sit to Lying (QC): 6 Lying-Sitting on Side/Bed(QC): 6 Sit to Stand (QC): 4 (SBA) Chair/Jpt-qd-Vsfai Xfer(QC): 4 (SBA) Toilet Transfer (QC): 4 (SBA) Car Transfer (QC): 4 (SBA) Does the Patient Walk: Yes Walk 10 feet (QC): 4 (SBA) Walk 50ft with 2 Turns (QC): 4 (SBA) Walk 150 ft (QC): 4 (SBA) Walking 10ft on Uneven Surface: 4 (CGA) 1 Step (curb) (QC): 4 (CGA) 4 Steps (QC): 4 (CGA) 12 Steps (QC): 88 Picking up an Object (QC): 4 (CGA) Wheel 50 feet with 2 turns (QC: 6 Wheel 150 feet: 6 PT Plan Problem List Problem List: Activity Tolerance, Functional Strength, Safety, Balance, Gait, Transfer Treatment/Plan Treatment Plan: Continue Plan of Care Treatment Plan: Bed Mobility, Education, Functional Activity Patria, Functional Strength, Group Therapy, Gait, Safety, Therapeutic Exercise, Transfers Treatment Duration: Mar 30, 2020 Frequency: At least 5 of 7 days/Wk (IRF) Estimated Hrs Per Day: 1.5 hours per day Patient and/or Family Agrees t: Yes Safety Risks/Education Patient Education: Gait Training, Transfer Techniques, Correct Positioning, Safety Issues Teaching Recipient: Patient Teaching Methods: Demonstration, Discussion Response to Teaching: Reinforcement Needed Time/GCodes Time In: 1400 Time Out: 1430 Total Billed Treatment Time: 30 Total Billed Treatment 1 visit GT 30' SHIV HERNANDEZ PT Mar 16, 2020 14:27
[2020-03-16] MEDS: ENOXAPARIN 40 MG/0.4 ML (LOVENOX) SYR SC SCH (16:58)
[2020-03-16 17:59] VITALS: BP 129/68
[2020-03-16 18:08] VITALS: BP 100/62
[2020-03-16] MEDS: MELATONIN 3 MG TABLET PO PRN (21:18)
[2020-03-16] MEDS: ALPRAZolam 0.25 MG (XANAX) TAB PO PRN (21:18)
[2020-03-16] MEDS: ZOLPIDEM 5 MG (AMBIEN) TAB PO SCH (21:24)
[2020-03-17] MEDS: guaiFENesin/CODEINE (ROBITUSSIN AC) 10ML UDC PO PRN
[2020-03-17 06:24] VITALS: BP 170/67
[2020-03-17 08:54] VITALS: BP 151/75
[2020-03-17] MEDS: CARVEDILOL 3.125 MG (COREG) TABLET PO SCH ×2 (08:54→20:16)
[2020-03-17] MEDS: FLUDROCORTISONE 0.1 MG (FLORINEF) TAB PO SCH (08:55)
[2020-03-17] MEDS: BACLOFEN 10 MG (LIORESAL) TAB PO SCH ×3 (08:55→20:15)
[2020-03-17] MEDS: DOCUSATE SODIUM 100 MG (COLACE) CAP PO SCH ×2 (08:55→20:17)
[2020-03-17] MEDS: ASPIRIN E.C. 325 MG (ECOTRIN) TABLET PO SCH (08:55)
[2020-03-17] MEDS: lisINopril 10 MG (PRINIVIL) TABLET PO SCH (08:55)
[2020-03-17] MEDS: polyethylene glycoL POWDER 17 GM (MIRALAX) PACK PO SCH ×2 (09:24→20:15)
[2020-03-17] MEDS: SENNA W/DOCUSATE (SENOKOT S) TABLET PO SCH ×2 (09:24→20:16)
--- NOTE | 2020-03-17 10:25 | Occupational Ther Daily Note ---
OT Current Status-Daily Note Subjective Pt alert, sitting in recliner. Pt agrees to therapy. Pt states that he is going home after 5 since that is when his is able to pick him up. CORBIN told pt that she would have SW talk to him about that and he said that they already talked about it yesterday. Mental Status/Objective Patient Orientation: Person, Place, Time, Situation ADL-Treatment Pt declined shower, changing clothing and oral care. Pt able to open container and use regular utensils to eat. At end of session, pt requested to use toilet. CGA to maintain balance when turning to sit onto toilet and manipulate clothing. Cleanses sitting on toilet independently. After session, pt lying in bed with call light/phone in reach. All needs met in room. Therapy Code Descriptions/Definitions Functional [place] Measure: 0=Not Assessed/NA 4=Minimal Assistance 1=Total Assistance 5=Supervision or Setup 2=Maximal Assistance 6=Modified [place] 3=Moderate Assistance 7=Complete IndependenceSCALE: Activities may be completed with or without assistive devices. 4-Vipjmlxzfw-erzrhpr completes the activity by him/herself with no assistance from a helper. 5-Set-up or Clean-up Assistance-helper sets up or cleans up; patient completes activity. [place] assists only prior to or following the activity. 4-Supervision or Touching Assistance-helper provides verbal cues and/or touching/steadying and/or contact guard assistance as patient completes activit y. Assistance may be provided throughout the activity or intermittently. 3-Partial/Moderate Assistance-helper does LESS THAN HALF the effort. [place] lifts, holds or supports trunk or limbs, but provides less than half the effort. 2-Substantial/Maximal Assistance-helper does MORE THAN HALF the effort. [place] lifts or holds trunk or limbs and provides more than half the effort. 5-Udibhipym-yromwc does ALL the effort. Patient does none of the effort to complete the activity. Or, the assistance of 2 or more helpers is required for the patient to complete the activity. If activity was not attempted, code reason: 7-Patient Refused. 9-Not Applicable-not attempted and the patient did not perform the activity before the current illness, exacerbation or injury. 10-Not Attempted due to Environmental Limitations-(lack of equipment, weather restraints, etc.). 88-Not Attempted due to Medical Conditions or Safety Concerns. Eating (QC): 6 On/Off Footwear: 6 Toileting Hygiene (QC): 4 Toilet Transfer (QC): 4 Pt stated that initially that double vision is improving and both eyes remained fully open for most of treatment. At end of treatment pt began to squint R eye. Pt continued to refuse eye patch until later. Other Treatment Pt ambulated to therapy gym using FWW. Pt required verbal cues for foot placement due to tendency to bring L foot to midline or further then loses balance and requires assist to regain balance. Pt completed B UE strengthening and activity tolerance tasks while in standing. Resistive nuts/bolts with both hands 2x's, recovery break 2x's. Pt then completed ROM arc to work on dynamic standing and crossing midline. 2# hand wt for 6 B UE exercises in all planes completed, 2 sets 10 reps. Pt then ambulated throughout ARU to work on balance and functional movement. OT Lorry Weigher Goals Assisted Goals Time Frame: Mar 19, 2020 Eating (QC): 6 (met) Oral Hygiene (QC): 6 (met) Toileting Hygiene (QC): 6 Shower/Bathe Self (QC): 6 (met) Upper Body Dressing (QC): 6 Lower Body Dressing (QC): 6 On/Off Footwear (QC): 6 1=Demonstrate adherence to instructed precautions during ADL tasks. 2=Patient will verbalize/demonstrate understanding of assistive devices/modifications for ADL. 3=Patient will improve strength/tolerance for activity to enable patient to perform ADL's. OT Education/Plan Problem List/Assessment Assessment: Decreased Activ Tolerance, Decreased Safety Aware, Decreased UE Strength, Impaired Coordination, Impaired Funct Balance Discharge Recommendations Plan/Recommendations: Continue POC Treatment Plan/Plan of Care Patient would benefit from OT for education, treatment and training to promote independence in ADL's, mobility, safety and/or upper extremity function for ADL's. Plan of Care: ADL Retraining, Functional Mobility, UE Funct Exercise/Act Treatment Duration: Mar 19, 2020 Frequency: Modified Program (IRF) (09/09) Estimated Hrs Per Day: 1.5 hours per day (1-1.5) Agreement: Yes Rehab Potential: Fair Time/GCodes Start Time: 07:30 Stop Time: 09:00 Total Time Billed (hr/min): 90 Billed Treatment Time 1 visit-ADL 1 (15 min) FA 2 (30 min) EX 3 (45 min) YULIA OROZCO Mar 17, 2020 10:25
--- NOTE | 2020-03-17 10:38 | PM&R Progress Note ---
Subjective HPI/CC On Admission Date Seen by Provider: Mar 17, 2020 Time Seen by Provider: 09:00 Subjective/Events-last exam 03/17/20: BP really good Discharge planning Balance issues continue but much improved Bowels are moving Will discharge on Sunday03/16/20: Pt doing very well Sleeping pretty well Speech therapy working with him with dysphasia 2 diet Orthostasis much improved 03/15/20: Pt much improved Denies any new issues Speech therapy will see him for dysphagia and micro-aspiration risk Florinef seems to be helping with the orthostasis Cough is frequent but lungs are clear 03/14/20: Improved overall Able to ambulate without orthostasis now Diploplia noted Flornief maintained BM yesterday COugh is noted will have ST evaluate his swallowing tomorrow for microaspiration? Thorazine and Baclofen and Xanax has really helped the hiccups 03/13/20: Improved status Was able to stand and do well Florinef helping along with KALEB and JUAN ANTONIO wraps Cough is sometimes productive CXR negative no fever Baclofen and Thorazine improved hiccups 03/12/20: Hiccups still present IVF heplocked Creat 1.1 now after IVF Baclofen for hiccups Robitussin AC 03/11/20: Will HLIVF later today Florinef will be started to help with orthostasis CXR done for cough and that was normal Baclofen will be given for hiccups 03/10/20: Thorazine is helping the hiccups BP was quite a bit lower this morning, held all of his meds, cardiology was consulted and he did have an episode of severe balance issues His BP was 89/41 , will give a liter of normal saline bolus and 100 CCs per hour He really hasnt been drinking a lot Appreciate cardiology consult Review of Systems General: Fatigue, Malaise HEENT: Visual Changes Pulmonary: Cough Neurological: Weakness, Incoordination Objective Exam Vital Signs Vital Signs Date Time Temp Pulse Resp B/P (MAP) Pulse Ox O2 Delivery O2 Flow Rate FiO2 03/17/20 20:16 62 169/76 (107) 03/17/20 20:15 94 Room Air 03/17/20 17:58 37.4 18 Capillary Refill : Less Than 3 Seconds General Appearance: No Apparent Distress, WD/WN, Chronically ill HEENT: PERRL/EOMI, Normal ENT Inspection, Pharynx Normal Neck: Full Range of Motion, Normal Inspection, Non Tender, Supple, Carotid Bruit Respiratory: Chest Non Tender, Lungs Clear, Normal Breath Sounds, No Accessory Muscle Use, No Respiratory Distress Cardiovascular: Regular Rate, Rhythm, No Edema, No Gallop, No JVD, No Murmur, Normal Peripheral Pulses Gastrointestinal: Normal Bowel Sounds, No Organomegaly, No Pulsatile Mass, Non Tender, Soft Back: Normal Inspection, No CVA Tenderness, No Vertebral Tenderness Extremity: Normal Capillary Refill, Normal Inspection, Normal Range of Motion, Non Tender, No Calf Tenderness, No Pedal Edema Neurologic/Psychiatric: Alert, Oriented x3, No Motor/Sensory Deficits, Normal Mood/Affect, streets and buildings decorator II-XII Norm as Tested, Abnormal Gait, Other (double vision) Skin: Normal Color, Warm/Dry Lymphatic: No Adenopathy Results/Procedures Lab Patient resulted labs reviewed. FIM Transfers Therapy Code Descriptions/Definitions Functional [place] Measure: 0=Not Assessed/NA 4=Minimal Assistance 1=Total Assistance 5=Supervision or Setup 2=Maximal Assistance 6=Modified [place] 3=Moderate Assistance 7=Complete IndependenceSCALE: Activities may be completed with or without assistive devices. 5-Oanzdqfeni-byqhrpx completes the activity by him/herself with no assistance from a helper. 5-Set-up or Clean-up Assistance-helper sets up or cleans up; patient completes activity. [place] assists only prior to or following the activity. 4-Supervision or Touching Assistance-helper provides verbal cues and/or touching/steadying and/or contact guard assistance as patient completes activity. Assistance may be provided throughout the activity or intermittently. 3-Partial/Moderate Assistance-helper does LESS THAN HALF the effort. [place] lifts, holds or supports trunk or limbs, but provides less than half the effort. 2-Substantial/Maximal Assistance-helper does MORE THAN HALF the effort. [place] lifts or holds trunk or limbs and provides more than half the effort. 6-Frmkcbxpk-estvpk does ALL the effort. Patient does none of the effort to complete the activity. Or, the assistance of 2 or more helpers is required for the patient to complete the activity. If activity was not attempted, code reason: 7-Patient Refused. 9-Not Applicable-not attempted and the patient did not perform the activity before the current illness, exacerbation or injury. 10-Not Attempted due to Environmental Limitations-(lack of equipment, weather restraints, etc.). 88-Not Attempted due to Medical Conditions or Safety Concerns. Roll Left to Right (QC): 6 Sit to Lying (QC): 6 Sit to Stand (QC): 4 Chair/Vid-fi-Pfkqa Xfer(QC): 4 Car Transfer (QC): 3 Gait Training Distance: 300'x2, 120' Walk 10 feet (QC): 4 Walk 50 ft with 2 Turns(QC): 4 Walk 150 ft (QC): 4 Walking 10ft/uneven surface-QC: 88 Gait Persons Needed: 1 Gait Assistive Device: FWW Wheelchair Training Wheel 50 ft with 2 turns (QC): 5 Wheel 150 ft (QC): 6 Stair Training 1 Step (curb) (QC): 3 4 Steps (QC): 88 12 Steps (QC): 88 Balance Picking up an Object (QC): 88 ADL-Treatment Eating (QC): 6 Oral Hygiene (QC): 6 Shower/Bathe Self (QC): 6 (Complete all bathing in sitting.) Upper Body Dressing (QC): 5 Lower Body Dressing (QC): 4 On/Off Footwear (QC): 6 Toileting Hygiene (QC): 4 Toilet Transfer (QC): 4 Assessment/Plan Assessment and Plan Assess & Plan/Chief Complaint Assessment: CVA w/diploplia and balance dysfunction residual Pacemaker HLP HTN Chronic back pain THC use Plan: IRF protocol Home meds Monitor closely 03/10/20: IVF bolus Increase PO intake Monitor BP closely 03/11/20: Baclofen for hiccups IVF then DC Florinef for orthostasis 03/12/20: Florinef s/p IVF Monitor hiccups Baclofen and Thorazine 03/13/20: Improved Hiccups improved Monitor orthostasis closely 03/14/20: Monitor hiccups Improved othostasis Monitor cough ST to evaluate swallowing 03/15/20: Monitor cough ST eval swallowing for aspiration suspected Florinef 03/16/20: Dysphagia 2 diet Monitor pain Monitor orthostasis 03/17/20: Monitor dysphagia Orthostasis monitoring (1) CVA (cerebral vascular accident) (2) Dyslipidemia Status: Acute (3) Pacemaker Status: Chronic (4) HTN (hypertension) Status: Acute (5) Left facial numbness Status: Acute (6) Hypertension Status: Acute KAREN LANDAVERDE DO Mar 17, 2020 10:38
--- NOTE | 2020-03-17 11:18 | Physical Therapy Daily Note ---
PT Daily Note-Current Subjective Pt reports that the diplopia is bothering him again today. He has requested to use the eye patch on the (R) side. Pt also notes a feeling of nausea which he attributes to his medication and limited food intake in the past 24hrs. Mental Status Patient Orientation: Person, Place, Time, Situation Transfers SCALE: Activities may be completed with or without assistive devices. 9-Whdnqsqkgu-nbhjqso completes the activity by him/herself with no assistance from a helper. 5-Set-up or Clean-up Assistance-helper sets up or cleans up; patient completes activity. [place] assists only prior to or following the activity. 4-Supervision or Touching Assistance-helper provides verbal cues and/or touching/steadying and/or contact guard assistance as patient completes activity. Assistance may be provided throughout the activity or intermittently. 3-Partial/Moderate Assistance-helper does LESS THAN HALF the effort. [place] lifts, holds or supports trunk or limbs, but provides less than half the effort. 2-Substantial/Maximal Assistance-helper does MORE THAN HALF the effort. [place] lifts or holds trunk or limbs and provides more than half the effort. 1-Cushdjgam-pxwcrp does ALL the effort. Patient does none of the effort to complete the activity. Or, the assistance of 2 or more helpers is required for the patient to complete the activity. If activity was not attempted, code reason: 7-Patient Refused. 9-Not Applicable-not attempted and the patient did not perform the activity before the current illness, exacerbation or injury. 10-Not Attempted due to Environmental Limitations-(lack of equipment, weather restraints, etc.). 88-Not Attempted due to Medical Conditions or Safety Concerns. Roll Left & Right (QC): 6 Sit to Lying (QC): 6 Lying to Sitting/Side of Bed(Q: 6 Sit to Stand (QC): 5 Chair/Qkj-cf-Waaue Xfer(QC): 5 Toilet Transfer (QC): 5 Car Transfer (QC): 4 Pt required steadying assistance when turning to sit in the car transfer. He performed the transfer twice with steadying required both times. Weight Bearing Right Lower Extremity: Right Full Weight Bearing Left Lower Extremity: Left Full Weight Bearing Gait Training Does the Patient Walk?: Yes Distance: 150ft x2 Walk 10 feet (QC): 6 Walk 50 ft with 2 Turns(QC): 5 Walk 150 ft (QC): 4 Walking 10ft/uneven surface-QC: 6 Gait Persons Needed: 1 Gait Assistive Device: FWW Loss of balance to the (L) when making a (R) turn during the second 150ft walk. He was aware of the LOB but needed outside contact to correct. Wheelchair Training Does the Pt Use a Wheelchair?: Yes Wheel 50 ft with 2 turns (QC): 5 Wheel 150 ft (QC): 5 Type of Wheelchair: Manual Stair Training Stair Training: Handrails/: 2 handrails #of Steps: 4 1 Step (curb) (QC): 4 4 Steps (QC): 4 Stairs: Pattern: Step to Best performance when leading up with the (L) and descending leading with the (L). Very unsteady if leading with the (R). Balance Picking up an Object (QC): 4 Exercises Supine Ex: LE Protocol Supine Reps: [address] Ex=Flex, Abd, Ext, Marching, Side steps Standing Reps: 20 NuStep Minutes: 10 NuStep Workload: 5 Neuromuscular Worked on floor clock in the bars to improve (L) /(R) coordination and decision making. Unsteady when having to bear wt on (R). Assessment Current Status: Good Progress He has shown significant improvement in the past week. He continues to have issues with balance when depending on the (R) LE to steady him. No issues with hypotension or fatigue during his 90 minute PT session today. PT Short Term Goals Short Term Goals Time Frame: Mar 16, 2020 Roll Left & Right: 6 Sit to lyin Lying to sitting on side of be: 6 Sit to stand: 4 Chair/rcp-xc-bydcr transfer: 4 Walk 10 feet: 4 Walk 50 feet with two turns: 4 Walk 150 feet: 4 PT Electric Motor Rebuilder Goals Electric Motor Rebuilder Goals PT Snf Goals Time Frame: Mar 30, 2020 Roll Left & Right (QC): 6 Sit to Lying (QC): 6 Lying-Sitting on Side/Bed(QC): 6 Sit to Stand (QC): 4 (SBA) Chair/Qgj-ns-Gtscy Xfer(QC): 4 (SBA) Toilet Transfer (QC): 4 (SBA) Car Transfer (QC): 4 (SBA) Does the Patient Walk: Yes Walk 10 feet (QC): 4 (SBA) Walk 50ft with 2 Turns (QC): 4 (SBA) Walk 150 ft (QC): 4 (SBA) Walking 10ft on Uneven Surface: 4 (CGA) 1 Step (curb) (QC): 4 (CGA) 4 Steps (QC): 4 (CGA) 12 Steps (QC): 88 Picking up an Object (QC): 4 (CGA) Wheel 50 feet with 2 turns (QC: 6 Wheel 150 feet: 6 PT Plan Treatment/Plan Treatment Plan: Continue Plan of Care Treatment Plan: Bed Mobility, Education, Functional Activity Patria, Functional Strength, Group Therapy, Gait, Safety, Therapeutic Exercise, Transfers Treatment Duration: Mar 30, 2020 Frequency: At least 5 of 7 days/Wk (IRF) Estimated Hrs Per Day: 1.5 hours per day Patient and/or Family Agrees t: Yes Time/GCodes Time In: 0940 Time Out: 1110 Total Billed Treatment Time: 90 Total Billed Treatment 1, gt (15), nm (15), ex x4 (60) GADIEL MONAE PT Mar 17, 2020 11:18
--- NOTE | 2020-03-17 15:13 | NUR ---
CM/SS PATIENT CARE CONFERENCE Reviewed Summary with patient and then with his spouse Brenda Garland by phone. Both are in agreement for Brenda to come to [facility] Sunday, March 19, for family education/training and then patient will discharge home with her thereafter. HHC: Regarding post hospital therapies, patient and spouse both preferred HHC with potential graduation to OP Therapy at [facility] in [place]. [employer] will seek agency in patient's service area available to schedule, provide, and accept his insurance, starting with highest Medicare Compare quality rating. DME: Brenda will be borrowing a mobile chair lift/transport chair and FWW, has shower chair. No other needs have been identified by therapy team. Brenda has requested prescription for Rx assisting patient with sleep and hiccup resolution, updated physician. Continue discharge planning for Sunday.
--- NOTE | 2020-03-17 15:19 | NUR ---
"RD ASSESSMENT PMHx: HTN; stroke; PT INTERACTION: Pt was awake and pleasant during nutrition follow-up. Pt states he has been eating okay since last assessment. Note avg PO intake 65% x4d. per chart review. Pt states some issues with nausea and vomiting since last assessment. Note last BM was 03/12, and pt currently on bowel regimen of colace BID, senna BID, and miralax BID, per chart review. Est. kcal needs: 3876-4536 kcal | 20-25 kcal/kg Est. Pro needs: 74-94 g Pro |0.8-1.0 g Pro/kg PES STATEMENT: Inadequate oral intake (NI-2.1) related to loss of appetite, nausea, and vomiting, as evidenced by pt interview, and avg PO intake 65% x4d. INTERVENTION: Continue with current diet order of DYS2 Mechanically Altered diet. Pt may benefit from nutrition supplementation if PO intake declines. Encouraged pt to eat when able. Will continue to follow and reassess as pt needs, intake, and status change. Curt CARLSON MS RD LD [phone] cell"
[2020-03-17] MEDS: ENOXAPARIN 40 MG/0.4 ML (LOVENOX) SYR SC SCH (17:07)
[2020-03-17 17:58] VITALS: BP 163/70
[2020-03-17 20:16] VITALS: BP 169/76
[2020-03-17] MEDS: MELATONIN 3 MG TABLET PO PRN (20:16)
[2020-03-17] MEDS: ZOLPIDEM 5 MG (AMBIEN) TAB PO SCH (20:17)
[2020-03-17] MEDS: ALPRAZolam 0.25 MG (XANAX) TAB PO PRN (20:17)
[2020-03-18 06:32] VITALS: BP 163/76
[2020-03-18] MEDS: ASPIRIN E.C. 325 MG (ECOTRIN) TABLET PO SCH (07:20)
[2020-03-18] MEDS: lisINopril 10 MG (PRINIVIL) TABLET PO SCH (07:20)
[2020-03-18] MEDS: DOCUSATE SODIUM 100 MG (COLACE) CAP PO SCH ×2 (07:21→20:38)
[2020-03-18] MEDS: SENNA W/DOCUSATE (SENOKOT S) TABLET PO SCH ×2 (07:21→20:38)
[2020-03-18] MEDS: CARVEDILOL 3.125 MG (COREG) TABLET PO SCH ×2 (07:21→20:38)
[2020-03-18] MEDS: FLUDROCORTISONE 0.1 MG (FLORINEF) TAB PO SCH (07:21)
[2020-03-18] MEDS: BACLOFEN 10 MG (LIORESAL) TAB PO SCH ×3 (07:22→20:38)
[2020-03-18] MEDS: polyethylene glycoL POWDER 17 GM (MIRALAX) PACK PO SCH ×2 (07:23→20:40)
--- NOTE | 2020-03-18 08:26 | Occupational Ther Daily Note ---
OT Current Status-Daily Note Subjective Pt alert, sitting in recliner. Pt states that he does not eat much anyway and with how the chopped up food looks he won't eat it. Pt c/o fatigue. Agrees to therapy. Mental Status/Objective Patient Orientation: Person, Place, Time, Situation Attachments: IV ADL-Treatment Pt agrees to shower. Pt ambulates to bathroom with CGA using FWW, verbal cues for foot placement to decrease LOB. CGA to transfer to toilet and clothing manipulation, independent with hygiene while sitting on toilet. Pt transferred in/out of shower with CGA for safety. Pt doffed clothing independently, sitting to doff pants. Independent with shower, pt sat throughout shower. Pt sat at sink to complete oral care/grooming independently. Donned shirt and footwear by self after set up. Threaded pants over feet by self, SBA to hike pants over hips after set up. Pt took frequent breaks today stating that he was tired. Therapy Code Descriptions/Definitions Functional [place] Measure: 0=Not Assessed/NA 4=Minimal Assistance 1=Total Assistance 5=Supervision or Setup 2=Maximal Assistance 6=Modified [place] 3=Moderate Assistance 7=Complete IndependenceSCALE: Activities may be completed with or without assistive devices. 1-Sdmyalmfix-cfxpxun completes the activity by him/herself with no assistance from a helper. 5-Set-up or Clean-up Assistance-helper sets up or cleans up; patient completes activity. [place] assists only prior to or following the activity. 4-Supervision or Touching Assistance-helper provides verbal cues and/or touching/steadying and/or contact guard assistance as patient completes activity. Assistance may be provided throughout the activity or intermittently. 3-Partial/Moderate Assistance-helper does LESS THAN HALF the effort. [place] lifts, holds or supports trunk or limbs, but provides less than half the effort. 2-Substantial/Maximal Assistance-helper does MORE THAN HALF the effort. [place] lifts or holds trunk or limbs and provides more than half the effort. 7-Uadvkuusi-znccki does ALL the effort. Patient does none of the effort to complete the activity. Or, the assistance of 2 or more helpers is required for the patient to complete the activity. If activity was not attempted, code reason: 7-Patient Refused. 9-Not Applicable-not attempted and the patient did not perform the activity before the current illness, exacerbation or injury. 10-Not Attempted due to Environmental Limitations-(lack of equipment, weather restraints, etc.). 88-Not Attempted due to Medical Conditions or Safety Concerns. Eating (QC): 6 (Pt able to open containers/packages by self and use regular utensils to eat.) Oral Hygiene (QC): 6 Bathing Location: L Arm, R Arm, L Upper Leg, R Upper Leg, L Lower Leg (including foot), R Lower Leg (including foot), Chest, Abdomen, Buttocks, Perineal Area Shower/Bathe Self (QC): 6 Upper Body Dressing (QC): 5 Lower Body Dressing (QC): 4 On/Off Footwear: 5 Toileting Hygiene (QC): 4 Toilet Transfer (QC): 4 Other Treatment Pt ambulated to therapy gym using FWW with CGA due to LOB issues. Completed arm bike for 15 min at 20 asencio resistance to increase strength and activity tolerance for daily functional tasks. Pt then completed resistive clothespins in standing to work on fine motor strength and dynamic standing balance. Pt ambulated back to room using FWW, CGA. LOB when pt was sitting onto bed toward L side, unable to right self. After therapy, pt lying in bed with call light/phone in reach. All needs met in room. OT Time Clerk Goals Retirement Goals Time Frame: Mar 19, 2020 Eating (QC): 6 (met) Oral Hygiene (QC): 6 (met) Toileting Hygiene (QC): 6 (not met) Shower/Bathe Self (QC): 6 (met) Upper Body Dressing (QC): 6 (not met) Lower Body Dressing (QC): 6 (not met) On/Off Footwear (QC): 6 (no met) 1=Demonstrate adherence to instructed precautions during ADL tasks. 2=Patient will verbalize/demonstrate understanding of assistive devices/modifications for ADL. 3=Patient will improve strength/tolerance for activity to enable patient to perform ADL's. OT Education/Plan Problem List/Assessment Assessment: Decreased Activ Tolerance, Impaired Funct Balance Discharge Recommendations Plan/Recommendations: Continue POC Treatment Plan/Plan of Care Patient would benefit from OT for education, treatment and training to promote independence in ADL's, mobility, safety and/or upper extremity function for ADL's. Plan of Care: ADL Retraining, Functional Mobility, UE Funct Exercise/Act Treatment Duration: Mar 19, 2020 Frequency: Modified Program (IRF) (09/09) Estimated Hrs Per Day: 1.5 hours per day (1-1.5) Agreement: Yes Rehab Potential: Fair Time/GCodes Start Time: 07:00 Stop Time: 08:30 Total Time Billed (hr/min): 90 Billed Treatment Time 1 visit-ADL 3 (45 min) EX 2 (30 min) FA 1 (15 min) YULIA OROZCO Mar 18, 2020 08:26
--- NOTE | 2020-03-18 09:57 | Physical Therapy Daily Note ---
PT Daily Note-Current Subjective Patient in bed pre tx agrees to PT, has no complaints of pain. Appearance Patient in bed post tx with nurse call, phone, tray, all needs met. Mental Status Patient Orientation: Person, Place, Situation Transfers SCALE: Activities may be completed with or without assistive devices. 6-Qffncsrlwy-auqeldk completes the activity by him/herself with no assistance from a helper. 5-Set-up or Clean-up Assistance-helper sets up or cleans up; patient completes activity. [place] assists only prior to or following the activity. 4-Supervision or Touching Assistance-helper provides verbal cues and/or touching/steadying and/or contact guard assistance as patient completes activity. Assistance may be provided throughout the activity or intermittently. 3-Partial/Moderate Assistance-helper does LESS THAN HALF the effort. [place] lifts, holds or supports trunk or limbs, but provides less than half the effort. 2-Substantial/Maximal Assistance-helper does MORE THAN HALF the effort. [place] lifts or holds trunk or limbs and provides more than half the effort. 8-Hbqaggoua-mmygow does ALL the effort. Patient does none of the effort to complete the activity. Or, the assistance of 2 or more helpers is required for the patient to complete the activity. If activity was not attempted, code reason: 7-Patient Refused. 9-Not Applicable-not attempted and the patient did not perform the activity before the current illness, exacerbation or injury. 10-Not Attempted due to Environmental Limitations-(lack of equipment, weather restraints, etc.). 88-Not Attempted due to Medical Conditions or Safety Concerns. Roll Left & Right (QC): 6 Sit to Lying (QC): 6 Lying to Sitting/Side of Bed(Q: 6 Sit to Stand (QC): 6 Chair/Uwr-xk-Tqajf Xfer(QC): 4 Toilet Transfer (QC): 4 Car Transfer (QC): 4 Patient performs bed mobility and supine <-> sit with independence, sit <-> stand with independence, transfers and car transfer with CGA. Occasionally needs cues for direction or safety. Weight Bearing Right Lower Extremity: Right Full Weight Bearing Left Lower Extremity: Left Full Weight Bearing Gait Training Distance: 300'x2, 120' Walk 10 feet (QC): 4 Walk 50 ft with 2 Turns(QC): 4 Walk 150 ft (QC): 4 Walking 10ft/uneven surface-QC: 4 Gait Persons Needed: 1 Gait Assistive Device: FWW Patient can ambulate 300' with a rolling walker with CGA (including 50' with at least 2 turns of 90 degrees and 10' over an uneven surface). Patient leans to the left progressively with distance, needs to stop often to reorient. Wheelchair Training Does the Pt Use a Wheelchair?: No Stair Training Stair Training: Handrails/: 2 handrails #of Steps: 8 1 Step (curb) (QC): 4 4 Steps (QC): 4 12 Steps (QC): 88 Stairs: Pattern: Step to CGA Balance Picking up an Object (QC): 4 Exercises LAQ alternating for 5 min with 2# ankle weights NuStep Minutes: 15 NuStep Workload: 5 Treatments bed mobility and transfers, ambulation, LE strengthening Assessment Current Status: Fair Progress needs assist with ambulation due to leaning to the left side PT Short Term Goals Short Term Goals Time Frame: Mar 16, 2020 Roll Left & Right: 6 Sit to lyin Lying to sitting on side of be: 6 Sit to stand: 4 Chair/gsh-kq-zsofn transfer: 4 Walk 10 feet: 4 Walk 50 feet with two turns: 4 Walk 150 feet: 4 PT Mcc Goals Wound/Ostomy Clinical Nurse Specialist Goals PT Wound/Ostomy Clinical Nurse Specialist Goals Time Frame: Mar 30, 2020 Roll Left & Right (QC): 6 Sit to Lying (QC): 6 Lying-Sitting on Side/Bed(QC): 6 Sit to Stand (QC): 4 (SBA) Chair/Zru-uh-Knxtt Xfer(QC): 4 (SBA) Toilet Transfer (QC): 4 (SBA) Car Transfer (QC): 4 (SBA) Does the Patient Walk: Yes Walk 10 feet (QC): 4 (SBA) Walk 50ft with 2 Turns (QC): 4 (SBA) Walk 150 ft (QC): 4 (SBA) Walking 10ft on Uneven Surface: 4 (CGA) 1 Step (curb) (QC): 4 (CGA) 4 Steps (QC): 4 (CGA) 12 Steps (QC): 88 Picking up an Object (QC): 4 (CGA) Wheel 50 feet with 2 turns (QC: 6 Wheel 150 feet: 6 PT Plan Problem List Problem List: Activity Tolerance, Functional Strength, Safety, Balance, Gait, Transfer Treatment/Plan Treatment Plan: Continue Plan of Care Treatment Plan: Bed Mobility, Education, Functional Activity Patria, Functional Strength, Group Therapy, Gait, Safety, Therapeutic Exercise, Transfers Treatment Duration: Mar 30, 2020 Frequency: At least 5 of 7 days/Wk (IRF) Estimated Hrs Per Day: 1.5 hours per day Patient and/or Family Agrees t: Yes Safety Risks/Education Patient Education: Gait Training, Transfer Techniques, Steps, Correct Positioning, Safety Issues Teaching Recipient: Patient Teaching Methods: Demonstration, Discussion Response to Teaching: Reinforcement Needed Time/GCodes Time In: 0900 Time Out: 1000 Total Billed Treatment Time: 60 Total Billed Treatment 1 visit EX 20' FA 40' SHIV HERNANDEZ PT Mar 18, 2020 09:57
--- NOTE | 2020-03-18 10:52 | PM&R Progress Note ---
Subjective HPI/CC On Admission Date Seen by Provider: Mar 18, 2020 Time Seen by Provider: 11:00 Subjective/Events-last exam 03/18/20: Diplopia is much improved Keeps eye patch on most of the time DC plan for tomorrow Speech eval for advancing diet Jose Vargas is his pharmacy 03/17/20: BP really good Discharge planning Balance issues continue but much improved Bowels are moving Will discharge on Sunday03/16/20: Pt doing very well Sleeping pretty well Speech therapy working with him with dysphasia 2 diet Orthostasis much improved 03/15/20: Pt much improved Denies any new issues Speech therapy will see him for dysphagia and micro-aspiration risk Florinef seems to be helping with the orthostasis Cough is frequent but lungs are clear 03/14/20: Improved overall Able to ambulate without orthostasis now Diploplia noted Flornief maintained BM yesterday COugh is noted will have ST evaluate his swallowing tomorrow for microaspiration? Thorazine and Baclofen and Xanax has really helped the hiccups 03/13/20: Improved status Was able to stand and do well Florinef helping along with KALEB and JUAN ANTONIO wraps Cough is sometimes productive CXR negative no fever Baclofen and Thorazine improved hiccups 03/12/20: Hiccups still present IVF heplocked Creat 1.1 now after IVF Baclofen for hiccups Robitussin AC 03/11/20: Will HLIVF later today Florinef will be started to help with orthostasis CXR done for cough and that was normal Baclofen will be given for hiccups 03/10/20: Thorazine is helping the hiccups BP was quite a bit lower this morning, held all of his meds, cardiology was consulted and he did have an episode of severe balance issues His BP was 89/41 , will give a liter of normal saline bolus and 100 CCs per hour He really hasnt been drinking a lot Appreciate cardiology consult Review of Systems HEENT: Visual Changes Neurological: Weakness, Incoordination Objective Exam Vital Signs Vital Signs Date Time Temp Pulse Resp B/P (MAP) Pulse Ox O2 Delivery O2 Flow Rate FiO2 03/18/20 20:30 95 Room Air 03/18/20 17:00 36.4 65 16 161/74 (103) Capillary Refill : Less Than 3 Seconds General Appearance: No Apparent Distress, WD/WN, Chronically ill HEENT: PERRL/EOMI, Normal ENT Inspection, Pharynx Normal Neck: Full Range of Motion, Normal Inspection, Non Tender, Supple, Carotid Bruit Respiratory: Chest Non Tender, Lungs Clear, Normal Breath Sounds, No Accessory Muscle Use, No Respiratory Distress Cardiovascular: Regular Rate, Rhythm, No Edema, No Gallop, No JVD, No Murmur, Normal Peripheral Pulses Gastrointestinal: Normal Bowel Sounds, No Organomegaly, No Pulsatile Mass, Non Tender, Soft Back: Normal Inspection, No CVA Tenderness, No Vertebral Tenderness Extremity: Normal Capillary Refill, Normal Inspection, Normal Range of Motion, Non Tender, No Calf Tenderness, No Pedal Edema Neurologic/Psychiatric: Alert, Oriented x3, No Motor/Sensory Deficits, Normal 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 FIM Transfers Therapy Code Descriptions/Definitions Functional [place] Measure: 0=Not Assessed/NA 4=Minimal Assistance 1=Total Assistance 5=Supervision or Setup 2=Maximal Assistance 6=Modified [place] 3=Moderate Assistance 7=Complete IndependenceSCALE: Activities may be completed with or without assistive devices. 4-Djdgfpvxjw-sqectsw completes the activity by him/herself with no assistance from a helper. 5-Set-up or Clean-up Assistance-helper sets up or cleans up; patient completes activity. [place] assists only prior to or following the activity. 4-Supervision or Touching Assistance-helper provides verbal cues and/or touching/steadying and/or contact guard assistance as patient completes activity. Assistance may be provided throughout the activity or intermittently. 3-Partial/Moderate Assistance-helper does LESS THAN HALF the effort. [place] lifts, holds or supports trunk or limbs, but provides less than half the effort. 2-Substantial/Maximal Assistance-helper does MORE THAN HALF the effort. [place] l ifts or holds trunk or limbs and provides more than half the effort. 8-Npxuktpxy-jpyvnx does ALL the effort. Patient does none of the effort to complete the activity. Or, the assistance of 2 or more helpers is required for the patient to complete the activity. If activity was not attempted, code reason: 7-Patient Refused. 9-Not Applicable-not attempted and the patient did not perform the activity before the current illness, exacerbation or injury. 10-Not Attempted due to Environmental Limitations-(lack of equipment, weather restraints, etc.). 88-Not Attempted due to Medical Conditions or Safety Concerns. Roll Left to Right (QC): 6 Sit to Lying (QC): 6 Sit to Stand (QC): 6 Chair/Oal-cf-Bktnz Xfer(QC): 4 Car Transfer (QC): 4 Gait Training Does the Patient Walk?: Yes Distance: 300'x2, 120' Walk 10 feet (QC): 4 Walk 50 ft with 2 Turns(QC): 4 Walk 150 ft (QC): 4 Walking 10ft/uneven surface-QC: 4 Gait Persons Needed: 1 Gait Assistive Device: FWW Wheelchair Training Does the Pt Use a Wheelchair?: No Wheel 50 ft with 2 turns (QC): 5 Wheel 150 ft (QC): 5 Type of Wheelchair: Manual Stair Training Stair Training: Handrails/: 2 handrails #of Steps: 8 1 Step (curb) (QC): 4 4 Steps (QC): 4 12 Steps (QC): 88 Stairs: Pattern: Step to Balance Picking up an Object (QC): 4 ADL-Treatment Eating (QC): 6 (Pt able to open containers/packages by self and use regular utensils to eat.) Oral Hygiene (QC): 6 Bathing Location: L Arm, R Arm, L Upper Leg, R Upper Leg, L Lower Leg (including foot), R Lower Leg (including foot), Chest, Abdomen, Buttocks, Perineal Area Shower/Bathe Self (QC): 6 Upper Body Dressing (QC): 5 Lower Body Dressing (QC): 4 On/Off Footwear (QC): 5 Toileting Hygiene (QC): 4 Toilet Transfer (QC): 4 Assessment/Plan Assessment and Plan Assess & Plan/Chief Complaint Assessment: CVA w/diploplia and balance dysfunction residual Pacemaker HLP HTN Chronic back pain THC use Plan: IRF protocol Home meds Monitor closely 03/10/20: IVF bolus Increase PO intake Monitor BP closely 03/11/20: Baclofen for hiccups IVF then DC Florinef for orthostasis 03/12/20: Florinef s/p IVF Monitor hiccups Baclofen and Thorazine 03/13/20: Improved Hiccups improved Monitor orthostasis closely 03/14/20: Monitor hiccups Improved othostasis Monitor cough ST to evaluate swallowing 03/15/20: Monitor cough ST eval swallowing for aspiration suspected Florinef 03/16/20: Dysphagia 2 diet Monitor pain Monitor orthostasis 03/17/20: Monitor dysphagia Orthostasis monitoring 03/18/20: DC Sunday (1) CVA (cerebral vascular accident) (2) Dyslipidemia Status: Acute (3) Pacemaker Status: Chronic (4) HTN (hypertension) Status: Acute (5) Left facial numbness Status: Acute (6) Hypertension Status: Acute KAREN LANDAVERDE DO Mar 18, 2020 10:52
--- NOTE | 2020-03-18 11:30 | Speech Therapy Daily Note ---
Speech Daily Progress Note Subjective Date Seen by Provider: Mar 18, 2020 Time Seen by Provider: 00:30 Patient was resting in his bed. He states he was happy to be returning home tomorrow. Objective Patient completed trials of regular diet without difficulty or s/s of aspiration. Patient will be upgraded to regular this date. Assessment Assessment Current Status: Good Progress Treatment Plan Discontinue ST, Goals Met Speech Short Term Goals Short Term Goals Short Term Goals 1) Patient will tolerate least restrictive diet level without s/s of aspiration at 90% or greater. 2) Patient will utilize compensatory strategies as trained for safe oral intake at 90% or greater. Speech Senior Living Goals Financial Analyst Accountant Goals Patient will maintain adequate nutrition/hydration via safe effective swallow function. Speech-Plan Patient/Family Goals Patient/Family Goals: Patient is returning to his home tomorrow where he lives with his . Treatment Plan Speech Therapy Treatment Plan: Discontinue ST, Goals Met Treatment Duration: Mar 10, 2020 Frequency: 4 times per week (Patient will receive skilled ST 4-5x per week.) Estimated Hrs Per Day: .5 hour per day Rehab Potential: Fair Barriers to Learning: No cognitive deficits at this time. Pt/Family Agrees to Plan: Yes Safety Risks/Education Teaching Recipient: Patient Teaching Methods: Demonstration, Discussion Response to Teaching: Verbalize Understanding, Return Demonstration Education Topics Provided: Continued safety with oral intake Time Speech Therapy Time In: 10:30 Speech Therapy Time Out: 11:00 Total Billed Time: 30 Billed Treatment Time 1, DYST No QUALITY CODES EXPRESSION OF IDEAS/WANTS: 4 UNDERSTANDING VERBAL CONTENT: 4 BRIEF INTERVIEW MENTAL STATUS: YES REPETITION OF 3 WORDS: 3 TEMPORAL ORIENTATION: YEAR: CORRECT, MONTH: CORRECT, DAY: CORRECT RECALL SOCK: YES, COLOR: YES, BED: YES WITH CUE MEMORY/RECALL ABILITY: SEASON, THAT HE IS IN THE HOSPITAL, LOCATION OF ROOM, STAFF NAMES VICTOR MANUEL MCGUIRE Mar 18, 2020 11:30
--- NOTE | 2020-03-18 14:14 | NUR ---
CM/SS DISCHARGE PLANNING [facility]: Referrals initiated with C agencies x3, all to review for insurance coverage and availability of schedule: [facility] ACCEPTED to provide with Start of Services 03/20/20 [facility] Switchboard Clerk contacted patient's established skein winding operator office in [place], Dr. Thiago Erickson, OD. Confirmed he does treat diplopia, they offered an alternate OD/Dr. Norberto Tinajero. Switchboard Clerk spoke with spouse Brenda who requested they stay with Dr. Erickson due to familiarity. She agreed to call and make the appointment due to their tight schedule regarding care of grandchildren. Brenda also acknowledged understanding that office will submit to insurance but that the visit may be OOP due to new year/deductible. Finalize HHC with [facility] tomorrow.
--- NOTE | 2020-03-18 14:21 | Physical Therapy Daily Note ---
PT Daily Note-Current Subjective Patient in bed pre tx, agrees to PT, has no complaints of pain. Appearance Patient in bed post tx with nurse call, phone, tray, all needs met. Mental Status Patient Orientation: Person, Place, Situation Transfers SCALE: Activities may be completed with or without assistive devices. 5-Jlylbrioul-kfwlmgi completes the activity by him/herself with no assistance from a helper. 5-Set-up or Clean-up Assistance-helper sets up or cleans up; patient completes activity. [place] assists only prior to or following the activity. 4-Supervision or Touching Assistance-helper provides verbal cues and/or touching/steadying and/or contact guard assistance as patient completes activity. Assistance may be provided throughout the activity or intermittently. 3-Partial/Moderate Assistance-helper does LESS THAN HALF the effort. [place] lifts, holds or supports trunk or limbs, but provides less than half the effort. 2-Substantial/Maximal Assistance-helper does MORE THAN HALF the effort. [place] lifts or holds trunk or limbs and provides more than half the effort. 4-Twxefvrhl-tyixjo does ALL the effort. Patient does none of the effort to complete the activity. Or, the assistance of 2 or more helpers is required for the patient to complete the activity. If activity was not attempted, code reason: 7-Patient Refused. 9-Not Applicable-not attempted and the patient did not perform the activity before the current illness, exacerbation or injury. 10-Not Attempted due to Environmental Limitations-(lack of equipment, weather restraints, etc.). 88-Not Attempted due to Medical Conditions or Safety Concerns. Roll Left & Right (QC): 6 Sit to Lying (QC): 6 Lying to Sitting/Side of Bed(Q: 6 Sit to Stand (QC): 6 Chair/Vpb-sq-Iorbg Xfer(QC): 4 Weight Bearing Right Lower Extremity: Right Full Weight Bearing Left Lower Extremity: Left Full Weight Bearing Gait Training Distance: 300'x2 Walk 10 feet (QC): 4 Walk 50 ft with 2 Turns(QC): 4 Walk 150 ft (QC): 4 Gait Persons Needed: 1 Gait Assistive Device: FWW Patient ambulated with CGA, much less leaning to the left side Treatments bed mobility and transfers, ambulation Assessment Current Status: Fair Progress better balance PT Short Term Goals Short Term Goals Time Frame: Mar 16, 2020 Roll Left & Right: 6 Sit to lyin Lying to sitting on side of be: 6 Sit to stand: 4 Chair/wwy-su-lfrsv transfer: 4 Walk 10 feet: 4 Walk 50 feet with two turns: 4 Walk 150 feet: 4 PT Studio Technician Video Operator Goals Nursing Home Goals PT Studio Technician Video Operator Goals Time Frame: Mar 30, 2020 Roll Left & Right (QC): 6 Sit to Lying (QC): 6 Lying-Sitting on Side/Bed(QC): 6 Sit to Stand (QC): 4 (SBA) Chair/Lbc-cr-Iatdn Xfer(QC): 4 (SBA) Toilet Transfer (QC): 4 (SBA) Car Transfer (QC): 4 (SBA) Does the Patient Walk: Yes Walk 10 feet (QC): 4 (SBA) Walk 50ft with 2 Turns (QC): 4 (SBA) Walk 150 ft (QC): 4 (SBA) Walking 10ft on Uneven Surface: 4 (CGA) 1 Step (curb) (QC): 4 (CGA) 4 Steps (QC): 4 (CGA) 12 Steps (QC): 88 Picking up an Object (QC): 4 (CGA) Wheel 50 feet with 2 turns (QC: 6 Wheel 150 feet: 6 PT Plan Problem List Problem List: Activity Tolerance, Functional Strength, Safety, Balance, Gait, Transfer Treatment/Plan Treatment Plan: Continue Plan of Care Treatment Plan: Bed Mobility, Education, Functional Activity Patria, Functional Strength, Group Therapy, Gait, Safety, Therapeutic Exercise, Transfers Treatment Duration: Mar 30, 2020 Frequency: At least 5 of 7 days/Wk (IRF) Estimated Hrs Per Day: 1.5 hours per day Patient and/or Family Agrees t: Yes Safety Risks/Education Patient Education: Gait Training, Transfer Techniques, Correct Positioning, Safety Issues Teaching Recipient: Patient Teaching Methods: Demonstration, Discussion Response to Teaching: Reinforcement Needed Time/GCodes Time In: 1400 Time Out: 1415 Total Billed Treatment Time: 15 Total Billed Treatment 1 visit GT 15' SHIV HERNANDEZ PT Mar 18, 2020 14:21
[2020-03-18 17:00] VITALS: BP 161/74
[2020-03-18] MEDS: ENOXAPARIN 40 MG/0.4 ML (LOVENOX) SYR SC SCH (17:56)
[2020-03-18] MEDS: MELATONIN 3 MG TABLET PO PRN (20:38)
[2020-03-18] MEDS: ZOLPIDEM 5 MG (AMBIEN) TAB PO SCH (20:38)
[2020-03-18] MEDS: ALPRAZolam 0.25 MG (XANAX) TAB PO PRN (20:38)
[2020-03-19] MEDS ORDERED: BACL10TA PO (04:55)
[2020-03-19] MEDS ORDERED: ZOLP10TA PO (04:55)
[2020-03-19] MEDS ORDERED: FLDR.1T PO (04:55)
[2020-03-19] MEDS ORDERED: CARV3.122 PO (04:55)
[2020-03-19] MEDS ORDERED: ALPR.25T PO (04:55)
[2020-03-19] MEDS ORDERED: LISI10TA2 PO (04:55)
[2020-03-19] MEDS ORDERED: CHLO25TA20 PO (04:55)
--- NOTE | 2020-03-19 04:57 | D/C HH Face to Face Order ---
D/C Face to Face Orders Reconcile Patient Problems Problems Reviewed?: Yes Instructions for Patient Home Health Patient Instructions/FollowUp: PCP 1 week Physician to follow Patient: PCP Discharge Diet for Home: other diet (dysphagia 2 diet) Patient Problems: CVA Patient Data-Allergies,Ht & Wt Patient Allergies: Coded Allergies: Penicillins (Verified Allergy, Unknown, 03/06/20) Home Health Need/Face to Face Date of Face to Face: Mar 19, 2020 Clinical Findings: Generalized weakness and fatigue, Instability, Muscle weakness, Unsteady gait I have seen Pt hood-fb-mgdw: Yes Discharged To: Home Diagnosis/Conditions: CVA Patient is Homebound due to: Ray fall risk due to instabilty, Muscle weakness Homebound Status Due to the above stated illness, injury or surgical procedure (medical condition or diagnosis) and associated clinical findings, the patient is homebound because of his/her inability to leave home except with aid of a supportive device and/or person AND leaving the home requires a considerable and taxing effort or is medically contraindicated. Pt req the following assistanc: Walker Home Health Nursing Orders Home Health Services Order: Nursing Services, Basketball Coach-Evaluate & Treat, Physical Therapy-Evaluate & Treat Certify Stmt I certify that this patient is under my care and that I, a nurse practitioner or a physician; a payroll administrative assistant working with me, had a face to face encounter that - meets the physician face to face encounter requirements with this patient as dated. KAREN LANDAVERDE DO Mar 19, 2020 04:57
[2020-03-19 05:43] VITALS: BP 177/76
[2020-03-19 08:30] VITALS: BP 116/60
[2020-03-19] MEDS: CARVEDILOL 3.125 MG (COREG) TABLET PO SCH (08:31)
[2020-03-19] MEDS: FLUDROCORTISONE 0.1 MG (FLORINEF) TAB PO SCH (08:31)
[2020-03-19] MEDS: lisINopril 10 MG (PRINIVIL) TABLET PO SCH (08:31)
[2020-03-19] MEDS: BACLOFEN 10 MG (LIORESAL) TAB PO SCH (08:31)
[2020-03-19] MEDS: ASPIRIN E.C. 325 MG (ECOTRIN) TABLET PO SCH (08:31)
[2020-03-19] MEDS: DOCUSATE SODIUM 100 MG (COLACE) CAP PO SCH (09:18)
[2020-03-19] MEDS: polyethylene glycoL POWDER 17 GM (MIRALAX) PACK PO SCH (09:18)
[2020-03-19] MEDS: SENNA W/DOCUSATE (SENOKOT S) TABLET PO SCH (09:19)
--- NOTE | 2020-03-19 09:28 | Physical Therapy Daily Note ---
PT Daily Note-Current Subjective Patient in recliner pre tx, agrees to PT, has no complaints of pain, patient's is here for family training, will demonstrate and educate on safety and assistance needed during ambulation and stairs, he is able to perform bed mobility and standing and transfers on his own. Appearance Patietn in recliner post tx with nurse call, in room. Mental Status Patient Orientation: Normal For Age Transfers SCALE: Activities may be completed with or without assistive devices. 6-Ubspbeomvx-upgvjzp completes the activity by him/herself with no assistance from a helper. 5-Set-up or Clean-up Assistance-helper sets up or cleans up; patient completes activity. [place] assists only prior to or following the activity. 4-Supervision or Touching Assistance-helper provides verbal cues and/or touching/steadying and/or contact guard assistance as patient completes activity. Assistance may be provided throughout the activity or intermittently. 3-Partial/Moderate Assistance-helper does LESS THAN HALF the effort. [place] lifts, holds or supports trunk or limbs, but provides less than half the effort. 2-Substantial/Maximal Assistance-helper does MORE THAN HALF the effort. [place] lifts or holds trunk or limbs and provides more than half the effort. 8-Eqdroefta-rsqytn does ALL the effort. Patient does none of the effort to complete the activity. Or, the assistance of 2 or more helpers is required for the patient to complete the activity. If activity was not attempted, code reason: 7-Patient Refused. 9-Not Applicable-not attempted and the patient did not perform the activity before the current illness, exacerbation or injury. 10-Not Attempted due to Environmental Limitations-(lack of equipment, weather restraints, etc.). 88-Not Attempted due to Medical Conditions or Safety Concerns. Sit to Stand (QC): 6 Chair/Kzz-lc-Rmdej Xfer(QC): 4 Weight Bearing Right Lower Extremity: Right Full Weight Bearing Left Lower Extremity: Left Full Weight Bearing Gait Training Distance: 300'x2, 120' Walk 10 feet (QC): 4 Walk 50 ft with 2 Turns(QC): 4 Walk 150 ft (QC): 4 Gait Persons Needed: 1 Gait Assistive Device: FWW needs steadying assist with fatigue, leans to the left side Stair Training Stair Training: Handrails/: 2 handrails #of Steps: 4 1 Step (curb) (QC): 4 4 Steps (QC): 4 Treatments transfers, ambulation, stairs Assessment Current Status: Fair Progress understood instructions, had questions about positioning that were answered PT Short Term Goals Short Term Goals Time Frame: Mar 16, 2020 Roll Left & Right: 6 Sit to lyin Lying to sitting on side of be: 6 Sit to stand: 4 Chair/klk-ij-mmpmb transfer: 4 Walk 10 feet: 4 Walk 50 feet with two turns: 4 Walk 150 feet: 4 PT Mcc Goals Mcc Goals PT Supervisor Wall Mirror Department Goals Time Frame: Mar 30, 2020 Roll Left & Right (QC): 6 Sit to Lying (QC): 6 Lying-Sitting on Side/Bed(QC): 6 Sit to Stand (QC): 4 (SBA) Chair/Ceb-ck-Qpuow Xfer(QC): 4 (SBA) Toilet Transfer (QC): 4 (SBA) Car Transfer (QC): 4 (SBA) Does the Patient Walk: Yes Walk 10 feet (QC): 4 (SBA) Walk 50ft with 2 Turns (QC): 4 (SBA) Walk 150 ft (QC): 4 (SBA) Walking 10ft on Uneven Surface: 4 (CGA) 1 Step (curb) (QC): 4 (CGA) 4 Steps (QC): 4 (CGA) 12 Steps (QC): 88 Picking up an Object (QC): 4 (CGA) Wheel 50 feet with 2 turns (QC: 6 Wheel 150 feet: 6 PT Plan Problem List Problem List: Activity Tolerance, Functional Strength, Safety, Balance, Gait, Transfer Treatment/Plan Treatment Plan: Continue Plan of Care Treatment Plan: Bed Mobility, Education, Functional Activity [place]ria, Functional Strength, Group Therapy, Gait, Safety, Therapeutic Exercise, Transfers Treatment Duration: Mar 30, 2020 Frequency: At least 5 of 7 days/Wk (IRF) Estimated Hrs Per Day: 1.5 hours per day Patient and/or Family Agrees t: Yes Safety Risks/Education Patient Education: Gait Training, Transfer Techniques, Correct Positioning, Safety Issues Teaching Recipient: Patient Teaching Methods: Demonstration, Discussion Response to Teaching: Reinforcement Needed Time/GCodes Time In: 0900 Time Out: 0920 Total Billed Treatment Time: 20 Total Billed Treatment 1 visit FA SHIV MORGAN PT Mar 19, 2020 09:28
--- NOTE | 2020-03-19 09:34 | Therapy Team Discharge Summary ---
Therapy Discharge Summary Discharge Recommendations Date of Discharge Physical Therapy Patient came to rehab following a CVA. Upon evaluation patient performed bed mobility and supine <-> sit with independence, sit <-> stand CGA, transfers and car transfer min assist, ambulated 120' with a rolling walker with min assist (including 50' with at least 2 turns of 90 degrees and 10' over an uneven surface), and went up and down 1 step using a rolling walker with min assist. Patient has been performing bed mobility and transfer training, balance and endurance training, functional strengthening, stair training, gait training, and education. Patient has made good progress but has not met his longterm goals for transfers or ambulation due to assistance needed. Now, patient performs bed mobility and supine <-> sit with independence, sit <-> stand with independence, transfers and car transfer with CGA, ambulates 300' with a rolling walker with CGA (including 50' with at least 2 turns of 90 degrees and 10' over an uneven surface), can go up and down 8 steps using 2 handrails with CGA, and can greens picker an object from the floor with CGA. Patient is discharging from this facility today and will be discharged from PT at this time. Occupational Therapy Decreased Activ Tolerance, Impaired Funct Balance PT Programming Director Goals Programming Director Goals PT Programming Director Goals Time Frame: Mar 30, 2020 Roll Left to Right (QC): 6 Sit to Lying (QC): 6 Lying-Sitting on Side/Bed(QC): 6 Sit to Stand (QC): 4 (SBA) Chair/Ijr-wh-Knzhg Xfer(QC): 4 (SBA) Car Transfer (QC): 4 (SBA) Does the Patient Walk: Yes Walk 10 feet (QC): 4 (SBA) Walk 10ft-Uneven Surface(QC): 4 (CGA) Walk 50ft with 2 Turns (QC): 4 (SBA) Walk 150 ft (QC): 4 (SBA) Wheel 50 feet with 2 turns (QC: 6 1 Step (curb) (QC): 4 (CGA) 4 Steps (QC): 4 (CGA) 12 Steps (QC): 88 Picking up an Object (QC): 4 (CGA) OT Programming Director Goals Mcc Goals Time Frame: Mar 19, 2020 Eating (QC): 6 (met) Oral Hygiene (QC): 6 (met) Shower/Bathe Self (QC): 6 (met) Upper Body Dressing (QC): 6 (not met) Lower Body Dressing (QC): 6 (not met) On/Off Footwear (QC): 6 (no met) Toileting Hygiene (QC): 6 (not met) Toilet/Commode Transfer (QC): 4 (SBA) 1=Demonstrate adherence to instructed precautions during ADL tasks. 2=Patient will verbalize/demonstrate understanding of assistive devices/modifications for ADL. 3=Patient will improve strength/tolerance for activity to enable patient to perform ADL's. Speech Programming Director Goals Programming Director Goals Patient will maintain adequate nutrition/hydration via safe effective swallow function. SHIV HERNANDEZ PT Mar 19, 2020 09:34
--- NOTE | 2020-03-19 10:30 | Discharge Summary ---
Diagnosis/Chief Complaint Date of Admission Mar 09, 2020 at 15:45 Date of Discharge Discharge Date: Mar 19, 2020 Discharge Diagnosis Assessment: CVA w/diploplia and balance dysfunction residual Pacemaker HLP HTN Chronic back pain THC use Plan: IRF protocol Home meds Monitor closely 03/10/20: IVF bolus Increase PO intake Monitor BP closely 03/11/20: Baclofen for hiccups IVF then DC Florinef for orthostasis 03/12/20: Florinef s/p IVF Monitor hiccups Baclofen and Thorazine 03/13/20: Improved Hiccups improved Monitor orthostasis closely 03/14/20: Monitor hiccups Improved othostasis Monitor cough ST to evaluate swallowing 03/15/20: Monitor cough ST eval swallowing for aspiration suspected Florinef 03/16/20: Dysphagia 2 diet Monitor pain Monitor orthostasis 03/17/20: Monitor dysphagia Orthostasis monitoring 03/18/20: DC Sunday (1) CVA (cerebral vascular accident) (2) Dyslipidemia Status: Acute (3) Pacemaker Status: Chronic (4) HTN (hypertension) Status: Acute (5) Left facial numbness Status: Acute (6) Hypertension Status: Acute Discharge Summary Discharge Physical Examination Allergies: Coded Allergies: Penicillins (Verified Allergy, Unknown, 03/06/20) Vitals & I&Os Vital Signs Date Time Temp Pulse Resp B/P (MAP) Pulse Ox O2 Delivery O2 Flow Rate FiO2 03/19/20 10:45 37.0 65 20 116/60 95 Room Air General Appearance: Alert, Oriented X3, Cooperative Respiratory: Clear to Auscultation Cardiovascular: Regular Rate Neuro: Normal Gait, Normal Speech, Strength at 5/5 X4 Ext Psych/Mental Status: Mental Status NL Hospital Course Was the Problem List Reviewed?: Yes Hospital course: Standard hospital course. Admitted after sustaining CVA with severe diploplia and orthostasis and balance issues. Patch placed on eye with improved results. Florinef added with good results. Hiccups were resolved with Thorazine and Baclofen and Xanax. Labs remained stable. Cardiology altered meds. Improved function and ambulating well enabled him to DC home. Labs (last 24 hrs) Laboratory Tests 03/10/20 05:45: White Blood Count 9.0, Red Blood Count 3.53L, Hemoglobin 10.6L, Hematocrit 32L, Mean Corpuscular Volume 90, Mean Corpuscular Hemoglobin 30, Mean Corpuscular Hemoglobin Concent 33, Red Cell Distribution Width 13.9, Platelet Count 188, Mean Platelet Volume 9.3, Immature Granulocyte % (Auto) 0, Neutrophils (%) (Auto) 62, Lymphocytes (%) (Auto) 20, Monocytes (%) (Auto) 13H, Eosinophils (%) (Auto) 4, Basophils (%) (Auto) 1, Neutrophils # (Auto) 5.6, Lymphocytes # (Auto) 1.8, Monocytes # (Auto) 1.2H, Eosinophils # (Auto) 0.4H, Basophils # (Auto) 0.1, Immature Granulocyte # (Auto) 0.0, Sodium Level 136, Potassium Level 4.1, Chloride Level 106, Carbon Dioxide Level 19L, Anion Gap 11, Blood Urea Nitrogen 55H, Creatinine 1.79H, Estimat Glomerular Filtration Rate 38, BUN/Creatinine Ratio 31, Glucose Level 114H, Calcium Level 8.3L, Corrected Calcium 8.9, Total Bilirubin 0.6, Aspartate Amino Transf (AST/SGOT) 14, Alanine Aminotransferase (A LT/SGPT) 14, Alkaline Phosphatase 43, Total Protein 5.6L, Albumin 3.2 03/11/20 08:41: White Blood Count 7.4, Red Blood Count 3.20L, Hemoglobin 9.9L, Hematocrit 29L, Mean Corpuscular Volume 92, Mean Corpuscular Hemoglobin 31, Mean Corpuscular Hemoglobin Concent 34, Red Cell Distribution Width 13.6, Platelet Count 205, Mean Platelet Volume 9.5, Immature Granulocyte % (Auto) 1, Neutrophils (%) (Auto) 64, Lymphocytes (%) (Auto) 18, Monocytes (%) (Auto) 13H, Eosinophils (%) (Auto) 5, Basophils (%) (Auto) 1, Neutrophils # (Auto) 4.7, Lymphocytes # (Auto) 1.3, Monocytes # (Auto) 1.0, Eosinophils # (Auto) 0.3, Basophils # (Auto) 0.0, Immature Granulocyte # (Auto) 0.0, Sodium Level 136, Potassium Level 4.1, Chloride Level 109H, Carbon Dioxide Level 20L, Anion Gap 7, Blood Urea Nitrogen 43H, Creatinine 1.42H, Estimat Glomerular Filtration Rate 49, BUN/Creatinine Ratio 30, Glucose Level 116H, Calcium Level 8.1L, Corrected Calcium 9.0, Total Bilirubin 0.6, Aspartate Amino Transf (AST/SGOT) 12, Alanine Aminotransferase (ALT/SGPT) 12, Alkaline Phosphatase 41, Total Protein 5.2L, Albumin 2.9L 03/12/20 06:37: White Blood Count 6.6, Red Blood Count 3.40L, Hemoglobin 10.2L, Hematocrit 31L, Mean Corpuscular Volume 91, Mean Corpuscular Hemoglobin 30, Mean Corpuscular Hemoglobin Concent 33, Red Cell Distribution Width 13.5, Platelet Count 206, Mean Platelet Volume 9.0, Immature Granulocyte % (Auto) 1, Neutrophils (%) (Auto) 60, Lymphocytes (%) (Auto) 20, Monocytes (%) (Auto) 13H, Eosinophils (%) (Auto) 6, Basophils (%) (Auto) 1, Neutrophils # (Auto) 4.0, Lymphocytes # (Auto) 1.3, Monocytes # (Auto) 0.9, Eosinophils # (Auto) 0.4H, Basophils # (Auto) 0.0, Immature Granulocyte # (Auto) 0.0, Sodium Level 136, Potassium Level 4.0, Chloride Level 109H, Carbon Dioxide Level 18L, Anion Gap 9, Blood Urea Nitrogen 30H, Creatinine 1.11, Estimat Glomerular Filtration Rate > 60, BUN/Creatinine Ratio 27, Glucose Level 107H, Calcium Level 8.3L, Corrected Calcium 9.1, Total Bilirubin 0.5, Aspartate Amino Transf (AST/SGOT) 16, Alanine Aminotransferase (ALT/SGPT) 12, Alkaline Phosphatase 41, Total Protein 5.4L, Albumin 3.0L 03/15/20 05:49: White Blood Count 6.3, Red Blood Count 3.12L, Hemoglobin 9.5L, Hematocrit 29L, Mean Corpuscular Volume 91, Mean Corpuscular Hemoglobin 30, Mean Corpuscular Hemoglobin Concent 33, Red Cell Distribution Width 13.4, Platelet Count 217, Mean Platelet Volume 8.8L, Immature Granulocyte % (Auto) 1, Neutrophils (%) (Auto) 53, Lymphocytes (%) (Auto) 26, Monocytes (%) (Auto) 15H, Eosinophils (%) (Auto) 4, Basophils (%) (Auto) 1, Neutrophils # (Auto) 3.3, Lymphocytes # (Auto) 1.6, Monocytes # (Auto) 1.0, Eosinophils # (Auto) 0.3, Basophils # (Auto) 0.0, Immature Granulocyte # (Auto) 0.0, Sodium Level 140, Potassium Level 3.7, Chloride Level 109H, Carbon Dioxide Level 26, Anion Gap 5, Blood Urea Nitrogen 19H, Creatinine 1.11, Estimat Glomerular Filtration Rate > 60, BUN/Creatinine Ratio 17, Glucose Level 92, Calcium Level 8.0L, Corrected Calcium 8.9, Total Bi lirubin 0.3, Aspartate Amino Transf (AST/SGOT) 22, Alanine Aminotransferase (ALT/SGPT) 18, Alkaline Phosphatase 41, Total Protein 5.2L, Albumin 2.9L Pending Labs Laboratory Tests 03/10/20 05:45: White Blood Count 9.0, Red Blood Count 3.53, Hemoglobin 10.6, Hematocrit 32, Mean Corpuscular Volume 90, Mean Corpuscular Hemoglobin 30, Mean Corpuscular Hemoglobin Concent 33, Red Cell Distribution Width 13.9, Platelet Count 188, M julio Platelet Volume 9.3, Immature Granulocyte % (Auto) 0, Neutrophils (%) (Auto) 62, Lymphocytes (%) (Auto) 20, Monocytes (%) (Auto) 13, Eosinophils (%) (Auto) 4, Basophils (%) (Auto) 1, Neutrophils # (Auto) 5.6, Lymphocytes # (Auto) 1.8, Monocytes # (Auto) 1.2, Eosinophils # (Auto) 0.4, Basophils # (Auto) 0.1, Immature Granulocyte # (Auto) 0.0, Sodium Level 136, Potassium Level 4.1, Chloride Level 106, Carbon Dioxide Level 19, Anion Gap 11, Blood Urea Nitrogen 55, Creatinine 1.79, Estimat Glomerular Filtration Rate 38, BUN/Creatinine Ratio 31, Glucose Level 114, Calcium Level 8.3, Corrected Calcium 8.9, Total Bilirubin 0.6, Aspartate Amino Transf (AST/SGOT) 14, Alanine Aminotransferase (ALT/SGPT) 14, Alkaline Phosphatase 43, Total Protein 5.6, Albumin 3.2 03/11/20 08:41: White Blood Count 7.4, Red Blood Count 3.20, Hemoglobin 9.9, Hematocrit 29, Mean Corpuscular Volume 92, Mean Corpuscular Hemoglobin 31, Mean Corpuscular Hemoglobin Concent 34, Red Cell Distribution Width 13.6, Platelet Count 205, Mean Platelet Volume 9.5, Immature Granulocyte % (Auto) 1, Neutrophils (%) (Auto) 64, Lymphocytes (%) (Auto) 18, Monocytes (%) (Auto) 13, Eosinophils (%) (Auto) 5, Basophils (%) (Auto) 1, Neutrophils # (Auto) 4.7, Lymphocytes # (Auto) 1.3, Monocytes # (Auto) 1.0, Eosinophils # (Auto) 0.3, Basophils # (Auto) 0.0, Immature Granulocyte # (Auto) 0.0, Sodium Level 136, Potassium Level 4.1, Chloride Level 109, Carbon Dioxide Level 20, Anion Gap 7, Blood Urea Nitrogen 43, Creatinine 1.42, Estimat Glomerular Filtration Rate 49, BUN/Creatinine Ratio 30, Glucose Level 116, Calcium Level 8.1, Corrected Calcium 9.0, Total Bilirubin 0.6, Aspartate Amino Transf (AST/SGOT) 12, Alanine Aminotransferase (ALT/SGPT) 12, Alkaline Phosphatase 41, Total Protein 5.2, Albumin 2.9 03/12/20 06:37: White Blood Count 6.6, Red Blood Count 3.40, Hemoglobin 10.2, Hematocrit 31, Mean Corpuscular Volume 91, Mean Corpuscular Hemoglobin 30, Mean Corpuscular Hemoglobin Concent 33, Red Cell Distribution Width 13.5, Platelet Count 206, Mean Platelet Volume 9.0, Immature Granulocyte % (Auto) 1, Neutrophils (%) (Auto) 60, Lymphocytes (%) (Auto) 20, Monocytes (%) (Auto) 13, Eosinophils (%) (Auto) 6, Basophils (%) (Auto) 1, Neutrophils # (Auto) 4.0, Lymphocytes # (Auto) 1.3, Monocytes # (Auto) 0.9, Eosinophils # (Auto) 0.4, Basophils # (Auto) 0.0, Immature Granulocyte # (Auto) 0.0, Sodium Level 136, Potassium Level 4.0, Chloride Level 109, Carbon Dioxide Level 18, Anion Gap 9, Blood Urea Nitrogen 30, Creatinine 1.11, Estimat Glomerular Filtration Rate > 60, BUN/Creatinine Ratio 27, Glucose Level 107, Calcium Level 8.3, Corrected Calcium 9.1, Total Bilirubin 0.5, Aspartate Amino Transf (AST/SGOT) 16, Alanine Aminotransferase (ALT/SGPT) 12, Alkaline Phosphatase 41, Total Protein 5.4, Albumin 3.0 03/15/20 05:49: White Blood Count 6.3, Red Blood Count 3.12, Hemoglobin 9.5, Hematocrit 29, Mean Corpuscular Volume 91, Mean Corpuscular Hemoglobin 30, Mean Corpuscular Hemoglobin Concent 33, Red Cell Distribution Width 13.4, Platelet Count 217, Mean Platelet Volume 8.8, Immature Granulocyte % (Auto) 1, Neutrophils (%) (Auto) 53, Lymphocytes (%) (Auto) 26, Monocytes (%) (Auto) 15, Eosinophils (%) (Auto) 4, Basophils (%) (Auto) 1, Neutrophils # (Auto) 3.3, Lymphocytes # (Auto) 1.6, Monocytes # (Auto) 1.0, Eosinophils # (Auto) 0.3, Basophils # (Auto) 0.0, Immature Granulocyte # (Auto) 0.0, Sodium Level 140, Potassium Level 3.7, Chloride Level 109, Carbon Dioxide Level 26, Anion Gap 5, Blood Urea Nitrogen 19, Creatinine 1.11, Estimat Glomerular Filtration Rate > 60, BUN/Creatinine Ratio 17, Glucose Level 92, Calcium Level 8.0, Corrected Calcium 8.9, Total Bilirubin 0.3, Aspartate Amino Transf (AST/SGOT) 22, Alanine Aminotransferase (ALT/SGPT) 18, Alkaline Phosphatase 41, Total Protein 5.2, Albumin 2.9 Discharge Home Medications: Active Scripts Active Fludrocortisone Acetate 0.1 Mg Tab 0.1 Mg PO DAILY Xanax Tablet (Alprazolam) 0.25 Mg Tab 0.25 Mg PO Q8H PRN Chlorpromazine HCl 25 Mg Tablet 25 Mg PO TID PRN Lisinopril 10 Mg Tablet 10 Mg PO DAILY Carvedilol 3.125 Mg Tablet 3.125 Mg PO BID Baclofen 10 Mg Tablet 5 Mg PO TID Ambien (Zolpidem Tartrate) 10 Mg Tablet 10 Mg PO HS Aspirin EC (Aspirin) 325 Mg Tablet.dr 325 Mg PO DAILY Atorvastatin Calcium 80 Mg Tablet 80 Mg PO DAILY Reported Diltiazem 24Hr ER (Diltiazem HCl) 240 Mg Cap.er.24h 240 Mg PO DAILY LAST FILLED 10-14-2019 #90/90 DAY SUPPLY Instructions to patient/family Please see electronic discharge instructions given to patient. Diagnosis/Problems Diagnosis/Problems (1) CVA (cerebral vascular accident) (2) Dyslipidemia Status: Acute (3) Pacemaker Status: Chronic (4) HTN (hypertension) Status: Acute (5) Left facial numbness Status: Acute (6) Hypertension Status: Acute KAREN LANDAVERDE DO Mar 19, 2020 10:30
[2020-03-19 10:45] VITALS: BP 116/60
--- NOTE | 2020-03-19 11:03 | NUR ---
CM/SS DISCHARGE Patient discharged home with his spouse as planned after completion of their therapy education and performance demonstration. HHC: Finalized with [facility]. IMM2 presented, discussed, signed, charted. Patient and spouse praised ARU staff for care and support throughout patient's stay. Faxed continuum of care information to: PCP, Dr. Immanuel Ruiz, DO Dr. Thiago Erickson, OD who will follow patient for diplopia.
--- NOTE | 2020-03-19 11:06 | Therapy Team Discharge Summary ---
Therapy Discharge Summary Discharge Recommendations Date of Discharge Mar 19, 2020 at 10:00 Occupational Therapy Decreased Activ Tolerance, Impaired Funct Balance Speech-Language Pathology Patient was admitted to the ARU s/p CVA. Patient received skilled ST services for dysphagia and diet level assessment. Patient discharged this date to his home where he resides with his . PT Batch Trucker Goals Batch Trucker Goals PT Batch Trucker Goals Time Frame: Mar 30, 2020 Roll Left to Right (QC): 6 Sit to Lying (QC): 6 Lying-Sitting on Side/Bed(QC): 6 Sit to Stand (QC): 4 (SBA) Chair/[id number] Xfer(QC): 4 (SBA) Car Transfer (QC): 4 (SBA) Does the Patient Walk: Yes Walk 10 feet (QC): 4 (SBA) Walk 10ft-Uneven Surface(QC): 4 (CGA) Walk 50ft with 2 Turns (QC): 4 (SBA) Walk 150 ft (QC): 4 (SBA) Wheel 50 feet with 2 turns (QC: 6 1 Step (curb) (QC): 4 (CGA) 4 Steps (QC): 4 (CGA) 12 Steps (QC): 88 Picking up an Object (QC): 4 (CGA) OT Batch Trucker Goals Mcc Goals Time Frame: Mar 19, 2020 Eating (QC): 6 (met) Oral Hygiene (QC): 6 (met) Shower/Bathe Self (QC): 6 (met) Upper Body Dressing (QC): 6 (not met) Lower Body Dressing (QC): 6 (not met) On/Off Footwear (QC): 6 (no met) Toileting Hygiene (QC): 6 (not met) Toilet/Commode Transfer (QC): 4 (SBA) 1=Demonstrate adherence to instructed precautions during ADL tasks. 2=Patient will verbalize/demonstrate understanding of assistive devices/modifications for ADL. 3=Patient will improve strength/tolerance for activity to enable patient to perform ADL's. Speech Mcc Goals Mcc Goals Patient will maintain adequate nutrition/hydration via safe effective swallow function. VICTOR MANUEL MCGUIRE Mar 19, 2020 11:06
--- NOTE | 2020-03-19 11:09 | Occ Therapy Progress Note ---
Therapy Progress Note Family education completed with and PT. Educated on safe positioning during ADLs and daily tasks. Pt to discharge today. 1 [id number] YULIA OROZCO Mar 19, 2020 11:09
--- NOTE | 2020-03-19 15:35 | Therapy Team Discharge Summary ---
Therapy Discharge Summary Discharge Recommendations Date of Discharge Mar 19, 2020 at 10:00 Occupational Therapy Pt admitted to FLU s/p CVA. Pt was independent with all I/ADLS and functional mobility without AD/AE at [facility]. Upon initial evaluation, pt was independent with eating and oral care, and required SBA showering, set up upper body dressing, min A lower body dressing, and set up footwear. OT txs focused on increasing safety and independence with ADLS and functional mobility, as well as increasing BUE strength and activity tolerance. At discharge, pt was independent with oral care, eating, and showering, required set up assistance with upper body dressing and footwear, SBA lower body dressing and CGA toileting. Pt made progress towards goals, but only met IND level with eating, oral care and showering. Pt discharged from facility, d/c from OT. Decreased Activ Tolerance, Impaired Funct Balance PT Cloth Tester Goals Senior Care Goals PT Cloth Tester Goals Time Frame: Mar 30, 2020 Roll Left to Right (QC): 6 Sit to Lying (QC): 6 Lying-Sitting on Side/Bed(QC): 6 Sit to Stand (QC): 4 (SBA) Chair/Xvi-ke-Jmtcl Xfer(QC): 4 (SBA) Car Transfer (QC): 4 (SBA) Does the Patient Walk: Yes Walk 10 feet (QC): 4 (SBA) Walk 10ft-Uneven Surface(QC): 4 (CGA) Walk 50ft with 2 Turns (QC): 4 (SBA) Walk 150 ft (QC): 4 (SBA) Wheel 50 feet with 2 turns (QC: 6 1 Step (curb) (QC): 4 (CGA) 4 Steps (QC): 4 (CGA) 12 Steps (QC): 88 Picking up an Object (QC): 4 (CGA) OT Senior Care Goals Cloth Tester Goals Time Frame: Mar 19, 2020 Eating (QC): 6 (met) Oral Hygiene (QC): 6 (met) Shower/Bathe Self (QC): 6 (met) Upper Body Dressing (QC): 6 (not met) Lower Body Dressing (QC): 6 (not met) On/Off Footwear (QC): 6 (not met) Toileting Hygiene (QC): 6 (not met) Toilet/Commode Transfer (QC): 4 (SBA) 1=Demonstrate adherence to instructed precautions during ADL tasks. 2=Patient will verbalize/demonstrate understanding of assistive devices/modifications for ADL. 3=Patient will improve strength/tolerance for activity to enable patient to perform ADL's. Speech Cloth Tester Goals Senior Care Goals Patient will maintain adequate nutrition/hydration via safe effective swallow function. NITESH BORREGO OT Mar 19, 2020 15:35
== END 2020-03-19 10:00 | disposition home health service (06) | DRG 57 ==
PROVIDERS: ADMIT Internal Medicine; ATTEND Internal Medicine
DX: I69.398 Other sequelae of cerebral infarction (principal); H53.2 Diplopia; R26.89 Other abnormalities of gait and mobility; R20.0 Anesthesia of skin; I10 Essential (primary) hypertension; I95.1 Orthostatic hypotension; E78.5 Hyperlipidemia, unspecified; R06.6 Hiccough; F12.90 Cannabis use, unspecified, uncomplicated; M54.9 Dorsalgia, unspecified; I49.5 Sick sinus syndrome; Z95.0 Presence of cardiac pacemaker; Z88.0 Allergy status to penicillin; Z79.82 Long term (current) use of aspirin
CPT/HCPCS: 36415; 71045; 80053; 85025